=== PATIENT | female | born 1955 | race Caucasian/White ===

== ENCOUNTER 2020-10-31 09:13 | Outpatient (REF) | payer MEDICARE, SELFPAY ==
--- NOTE | 2020-10-31 09:17 | MM_ITS ---
EXAMINATION: MM SCREENING DIGITAL BREAST TOMOSYNTHESIS, BILATERAL CLINICAL INFORMATION: Screening. Asymptomatic. The lifetime risk of breast cancer based on the Tyrer-Cuzick Model is 9%. COMPARISON: Mammography: 08/06/2019, 07/30/2018 TECHNIQUE: Digital breast tomosynthesis is performed in both the craniocaudal and mediolateral oblique views along with computer-aided detection (CAD). Synthesized 2D images are generated from the tomosynthesis. FINDINGS: There are scattered areas of fibroglandular density (ACR BI-RADS breast composition Category b). There are no significant masses, abnormal calcifications, or other abnormalities. The axilla and skin contours are unremarkable. No significant changes from prior exams. MM/MM tomosynthesis screening BI IMPRESSION: No mammographic evidence of malignancy. ASSESSMENT: BI-RADS 1: Negative RECOMMENDATION: Routine annual mammography screening. This patient's information was entered into a reminder system with a target due date for their next mammogram.
== END 2020-10-31 09:14 | disposition home or self-care (01) ==
LOC: HO.MAMMO 09:13
PROVIDERS: PCP Internal Medicine; Visit Provider Internal Medicine
DX: Z12.31 Encounter for screening mammogram for malignant neoplasm of breast (principal)
CPT/HCPCS: 77063; 77067

== ENCOUNTER 2020-11-15 07:50 | Outpatient (REF) | payer MEDICARE, SELFPAY ==
[2020-11-15 11:16] LABS: Alanine Aminotransferase 15 U/L (0-31); Albumin Level 4.5 g/dL (3.5-5.0); Alkaline Phosphatase 68 U/L (39-117); Anion Gap 12 (12-20); Aspartate Amino Transferase 17 U/L (5-31); Bilirubin Total 0.8 mg/dL (0.0-1.0); Blood Urea Nitrogen 15 mg/dL (9-16); Calcium 8.9 mg/dL (8.4-10.2); Carbon Dioxide 27 mmol/L (22-29); Chloride 107 mmol/L (96-108); Cholesterol 230 mg/dL; Estimated Glomerular Filt Rate > 60; Glucose Fasting 97 mg/dL (60-99); HDL Cholesterol 56 mg/dL; LDL Cholesterol Calculated 131 mg/dl; Potassium 4.4 mmol/l (3.3-5.1); Sodium 142 mmol/L (135-145); Total Protein 6.6 g/dL (6.5-8.0); Triglycerides 216 mg/dL
== END 2020-11-15 07:51 | disposition home or self-care (01) ==
LOC: HO.WFDLDS 07:50
PROVIDERS: Visit Provider Internal Medicine
DX: I10 Essential (primary) hypertension (principal); E78.2 Mixed hyperlipidemia
CPT/HCPCS: 36415; 80053; 80061

== ENCOUNTER 2021-03-02 09:02 | Outpatient (REF) | payer MEDICARE, SELFPAY ==
[2021-03-02 11:17] LABS: Alanine Aminotransferase 14 U/L (0-31); Albumin Level 4.6 g/dL (3.5-5.0); Alkaline Phosphatase 71 U/L (39-117); Anion Gap 11 (12-20); Aspartate Amino Transferase 20 U/L (5-31); Bilirubin Total 1.1 mg/dL (0.0-1.0); Blood Urea Nitrogen 12 mg/dL (9-16); Calcium 9.6 mg/dL (8.4-10.2); Carbon Dioxide 28 mmol/L (22-29); Chloride 108 mmol/L (96-108); Cholesterol 206 mg/dL; Estimated Glomerular Filt Rate > 60; Glucose Fasting 95 mg/dL (60-99); HDL Cholesterol 55 mg/dL; LDL Cholesterol Calculated 123 mg/dl; Potassium 4.9 mmol/L (3.3-5.1); Sodium 142 mmol/L (135-145); Total Protein 6.7 g/dL (6.5-8.0); Triglycerides 142 mg/dL
[2021-03-02 11:27] LABS: Vitamin D 25-OH Total 91.8 ng/mL (>30)
== END 2021-03-02 09:03 | disposition home or self-care (01) ==
LOC: HO.WFDLDS 09:02
PROVIDERS: Visit Provider Internal Medicine
DX: E78.5 Hyperlipidemia, unspecified (principal); I10 Essential (primary) hypertension
CPT/HCPCS: 36415; 80053; 80061; 82306

== ENCOUNTER → 2021-04-21 09:59 | Outpatient (BNVA) | payer MEDICARE, SELFPAY | PROVIDERS: PCP Internal Medicine; Visit Provider Nurse Practitioner Family | DX: Z12.11 Encounter for screening for malignant neoplasm of colon (principal); K30 Functional dyspepsia | CPT/HCPCS: 99202 ==

== ENCOUNTER 2021-07-07 08:05 | Outpatient (REF) | payer MEDICARE, SELFPAY ==
[2021-07-07 11:53] LABS: Mean Corpuscular HGB Conc 34.2 g/dl (31.0-35.0); PLT CLUMP 1; Red Cell Distribution Width 12.8 % (11.0-16.0)
[2021-07-07 11:55] LABS: Hematocrit 40.7 % (37-47); Hemoglobin 13.9 g/dl (12.0-16.0); Mean Corpuscular Hemoglobin 31.3 pg (27.0-33.0); Mean Corpuscular Volume 91.7 fL (80-98); Mean Platelet Volume 10.6 fL (9.4-12.3); Platelet Count 138 X10*3/uL (160-400); Red Blood Count 4.44 X10*6/uL (4.20-5.50); White Blood Count 4.4 X10*3/uL (4.8-10.8)
[2021-07-07 12:14] LABS: Cholesterol 245 mg/dL; HDL Cholesterol 58 mg/dL; LDL Cholesterol Calculated 168 mg/dl; Triglycerides 97 mg/dL
== END 2021-07-07 08:06 | disposition home or self-care (01) ==
LOC: HO.WFDLDS 08:05
PROVIDERS: Absent Provider Nurse Practitioner Family; Visit Provider Internal Medicine
DX: Z12.11 Encounter for screening for malignant neoplasm of colon (principal); E78.5 Hyperlipidemia, unspecified
CPT/HCPCS: 36415; 80061; 82306; 85027

== ENCOUNTER → 2021-07-31 10:55 | Outpatient (BNVA) | payer MEDICARE, SELFPAY | PROVIDERS: PCP Internal Medicine; Referring Provider Internal Medicine; Visit Provider Internal Medicine Cardiovascular Disease | DX: Z01.810 Encounter for preprocedural cardiovascular examination (principal); I10 Essential (primary) hypertension | CPT/HCPCS: 93005; 99212 ==

== ENCOUNTER 2021-08-08 06:23 | Day surgery (SDC) | payer MEDICARE, SELFPAY ==
[2021-08-02 15:18] VITALS: BMI 26.6
--- NOTE | 2021-08-07 10:07 | P.CONAN_ITS ---
Documented by User: Sujey Schulz NP 08/07/21 10:09 HPI - Anesthesia Eval Consult details Narrative: 66yo F for Upper Endoscopy and Colonoscopy Cardiac cleared at low to intermed [employer] with DDAVP preop [facility] Active Problems Active Problems: All Active Problems (Updated 08/02/21 @ 15:34 by Sana Alvarez, RN) Preop cardiovascular exam (Acute) Acquired thrombocytopenia (Acute) Annual physical exam (Acute) Pain of left calf (Acute) Family history of breast cancer (Acute) Mammogram normal (Acute) Hyperlipidemia (Acute) Normal Pap smear (Acute) Normal colonoscopy (Acute) Vertigo (Acute) Anxiety and depression (Acute) Lyme disease, unspecified (Acute) HTN (hypertension) (Acute) Past Medical History Medical History Acquired thrombocytopenia Afib Annual physical exam Anxiety and depression Family history of breast cancer HTN (hypertension) Hyperlipidemia Lyme disease, unspecified Mammogram normal Normal colonoscopy Normal Pap smear Pain of left calf Post-operative nausea and vomiting Vertigo Von Willebrand disease Family History Family History Father HTN (hypertension) Hx of CABG Diabetes mellitus Mother Colon cancer Myocardial infarction Maternal Aunt Breast cancer Sister Colon polyp Surgical History Surgical History H/O cardiac radiofrequency ablation Hx of colonoscopy Hx of tonsillectomy Social History Social History Housing: House Alcohol intake: current Alcohol intake frequency: holidays/special occasions only Patient Tobacco Use Status: Never used Tobacco e-Cigarette/Vaping Use: Never Used Are you DNR?: No Advance Directives: No Advance Directives Information Provided: No Advance Directives on File: No Current occupational status: retired Meds Allergies Allergy/AdvReac Type Severity Reaction Status Date / Time Latex Gloves Allergy Severe Rash Verified 08/02/21 15:21 metoclopramide [Reglan] Allergy Severe Anxiety Verified 08/02/21 15:21 morphine Allergy Severe Nausea and Verified 08/02/21 15:21 Vomiting niacin Allergy Severe Swelling Verified 08/02/21 15:21 [Niaspan Extended-Release] Pyipebi-Kkh-Yia Reductase Allergy Severe Muscle Verified 08/02/21 15:21 Inhibitor cramps Active Medications: Current Medications Desmopressin Acetate 20 mcg/ (Sodium Chloride) 55 mls @ 100 mls/hr IV ONCE ONE Stop: 08/08/21 07:32 Home Medications Medication Instructions Recorded Confirmed Last Taken Type Saccharomyces boulardii [Daily PO 09/05/20 07/31/21 Unknown History Probiotic (S. boulardii)] aspirin 81 mg tablet,delayed 81 mg PO DAILY 09/05/20 08/08/21 08/01/21 History release coenzyme Q10 [CoQ-10] PO 09/05/20 07/31/21 Unknown History azelaic acid 15 % topical gel TOPICAL 03/27/21 07/31/21 Unknown History ascorbic acid (vitamin C) 1,000 mg 1 g PO DAILY 04/21/21 08/02/21 Unknown History tablet oregano oil 1,500 mg capsule 1,500 mg PO DAILY 04/21/21 08/02/21 Unknown History algae omega PO 07/10/21 07/31/21 Unknown History calcium with magnesium PO 07/10/21 07/31/21 Unknown History citrus bergamot PO 07/10/21 07/31/21 Unknown History vitamin B complex 1 cap PO DAILY 07/10/21 08/02/21 Unknown History cholecalciferol (vitamin D3) 25 25 mcg PO DAILY 08/02/21 08/02/21 Unknown History mcg (1,000 unit) capsule (Vitamin D3) garlic 08/02/21 08/02/21 Unknown History loratadine 10 mg tablet (Claritin) 10 mg PO DAILY 08/02/21 08/02/21 Unknown History metoprolol succinate 25 mg 25 mg PO BEDTIME 08/02/21 08/02/21 Unknown History tablet,extended release 24 hr (Toprol XL) Exam Exam Date and Time: August 07, 2021 1008 Height,Weight and Vital Signs: Height 5 ft 4 in Weight 70.307 kg Pertinent Lab Results Pertinent Lab Results: Laboratory Tests 03/02/21 07/07/21 09:10 08:10 WBC 4.4 L Hgb 13.9 Hct 40.7 Plt Count 138 L Sodium 142 Potassium 4.9 Chloride 108 Carbon Dioxide 28 BUN 12 Creatinine 0.82 Narrative Narrative: EKG 07/2021 Normal sinus rhythm 70 beats per minute EKG, QTC 390 milliseconds. Documented by User: Ester Gabriel MD 08/08/21 07:57 PMFSH Past Medical History Medical History Acquired thrombocytopenia Afib Annual physical exam Anxiety and depression Family history of breast cancer HTN (hypertension) Hyperlipidemia Lyme disease, unspecified Mammogram normal Normal colonoscopy Normal Pap smear Pain of left calf Post-operative nausea and vomiting Vertigo Von Willebrand disease Family History Family History Father HTN (hypertension) Hx of CABG Diabetes mellitus Mother Colon cancer Myocardial infarction Maternal Aunt Breast cancer Sister Colon polyp Surgical History Surgical History H/O cardiac radiofrequency ablation Hx of colonoscopy Hx of tonsillectomy History of Problems with Anesthesia: No Social History Social History Housing: House Alcohol intake: current Alcohol intake frequency: holidays/special occasions only Patient Tobacco Use Status: Never used Tobacco e-Cigarette/Vaping Use: Never Used Are you DNR?: No Advance Directives: No Advance Directives Information Provided: No Advance Directives on File: No Current occupational status: retired Meds Allergies Allergy/AdvReac Type Severity Reaction Status Date / Time Latex Gloves Allergy Severe Rash Verified 08/02/21 15:21 metoclopramide [Reglan] Allergy Severe Anxiety Verified 08/02/21 15:21 morphine Allergy Severe Nausea and Verified 08/02/21 15:21 Vomiting niacin Allergy Severe Swelling Verified 08/02/21 15:21 [Niaspan Extended-Release] Sbcnyli-Okh-Cdp Reductase Allergy Severe Muscle Verified 08/02/21 15:21 Inhibitor cramps Home Medications Medication Instructions Recorded Confirmed Last Taken Type Saccharomyces boulardii [Daily PO 09/05/20 07/31/21 Unknown History Probiotic (S. boulardii)] aspirin 81 mg tablet,delayed 81 mg PO DAILY 09/05/20 08/08/21 08/01/21 History release coenzyme Q10 [CoQ-10] PO 09/05/20 07/31/21 Unknown History azelaic acid 15 % topical gel TOPICAL 03/27/21 07/31/21 Unknown History ascorbic acid (vitamin C) 1,000 mg 1 g PO DAILY 04/21/21 08/02/21 Unknown History tablet oregano oil 1,500 mg capsule 1,500 mg PO DAILY 04/21/21 08/02/21 Unknown History algae omega PO 07/10/21 07/31/21 Unknown History calcium with magnesium PO 07/10/21 07/31/21 Unknown History citrus bergamot PO 07/10/21 07/31/21 Unknown History vitamin B complex 1 cap PO DAILY 07/10/21 08/02/21 Unknown History cholecalciferol (vitamin D3) 25 25 mcg PO DAILY 08/02/21 08/02/21 Unknown History mcg (1,000 unit) capsule (Vitamin D3) garlic 08/02/21 08/02/21 Unknown History loratadine 10 mg tablet (Claritin) 10 mg PO DAILY 08/02/21 08/02/21 Unknown History metoprolol succinate 25 mg 25 mg PO BEDTIME 08/02/21 08/02/21 Unknown History tablet,extended release 24 hr (Toprol XL) Exam Airway Mallampati Class: III TM Dist: >3cm Neck ROM: Full Loose/Missing/Broken Teeth: No Heart: RRR Lungs: CTA Assessment and Plan Assessment Anesthesia Assessment: Anesthesia Plan Discussed and Chart Reviewed Final Anesthetic Review History of Problems with Anesthesia: No NPO: Yes ASA Class: II Final Preanesthetic Review: Meds/Allgs Chart Reviewed, Consent Obtained/Reviewed and Anes Risks/Benef Reviewed Patient Risk: Low Procedure Risk: Intermediate Anesthetic Plan Anesthetic Plan: MAC: Disposition: Standard PACU
[2021-08-08 06:47] VITALS: BP 143/73; PULSE 76; RESP 16; TEMP 36.6; O2SAT 100
[2021-08-08] MEDS: Lactated Ringers 1,000 ML 100 ML IVCONT (06:54)
[2021-08-08] MEDS: Desmopressin Acetate 20 MCG in 0.9 % Sodium Chloride 50 ML 100 MCG IV (07:06)
--- NOTE | 2021-08-08 07:09 | P.HPSUR_ITS ---
Pre-Procedural Eval Section A Date of Service: 08/08/21 The patient is an INPATIENT: No The History & Physical has been completed within 30 days and I have reviewed it.: No Section B Chief Complaint: Colon cancer screening, hx of gastric polyps Details of Present Illness: Colon cancer screening, family history of colon cancer, history of gastric polyps Relevant Family History (Specify if Yes): Yes Relevant Social History: None Present Medications: see Short Stay Collaborative assessment Medical History: Significant History (Afib Annual physical exam Anxiety and depression Family history of breast cancer HTN (hypertension) Hyperlipidemia Lyme disease, unspecified Mammogram normal Normal colonoscopy Normal Pap smear Pain of left calf Vertigo) History of Previous Operations: Relevant previous surgery/procedure and date(s) (Status post tonsillectomy, status post colonoscopy, history of cardiac ablati on) Allergies: Allergies Allergy/AdvReac Type Severity Reaction Status Date / Time Latex Gloves Allergy Severe Rash Verified 08/02/21 15:21 metoclopramide [Reglan] Allergy Severe Anxiety Verified 08/02/21 15:21 morphine Allergy Severe Nausea and Verified 08/02/21 15:21 Vomiting niacin Allergy Severe Swelling Verified 08/02/21 15:21 [Niaspan Extended-Release] Ptkezeh-Ugk-Fvt Reductase Allergy Severe Muscle Verified 08/02/21 15:21 Inhibitor cramps Review of Systems Sugical H&P ROS: Negative: Constitution, Cardiovascular, Respiratory and Gastrointestinal Exam Surgical H&P Exam: Normal: Heart, Normal: Lungs and Normal: Abdomen Plan Diagnosis/Plan: Unchanged I have reviewed the history and physical and performed a pertinent physical examination on my patient. No changes have occurred unless specified.
--- NOTE | 2021-08-08 07:10 | PM.OP ---
Brief Operative Note Date of Service: 08/08/21 Pre-op diagnosis: Colon cancer screening, GERD Post-op diagnosis: other (GERD, hiatal hernia, gastritis, gastric polyps) Procedure: FLEXIBLE TRANSORAL UPPER GASTROINTESTINAL ENDOSCOPY WITH BIOPSIES AND COLONOSCOPY PROCEDURE NOTE UPPER ENDOSCOPY Consent: Indications for the procedure and potential complications of bleeding, perforation, reaction to medications and missed diagnosis were discussed with the patient and informed consent was obtained. Instrument: Olympus GIF H 190 mid size upper endoscope Monitoring: Vital signs and clinical assessment, continuous EKG monitoring, Pulse oximetry, Carbon Dioxide monitoring and blood pressure monitoring were done throughout the procedure. Procedure: The patient was placed in the left lateral decubitis position and pre-procedure medications were administered and a bite block was placed. The endoscope was inserted into the mouth and advanced under direct vision to the third part of duodenum. A careful inspection was made as the upper endoscope was withdrawn including a retroflexed examination of the proximal stomach; Findings and interventions are described below. Findings: Larynx: Normal Esophagus: GE junction at 35 cms, Hiatal hernia 35 to 38 cms. Irregular Z-line - biopsied to check for Billingsley's Stomach: 3-5 mm benign appearing polyps in the body and fundus - one removed by cold bx. Mild gastric erythema with a few superficial antral erosions - biopsied. Grade 2 flap valve on retroflexed examination of the cardia. Duodenum: Normal bulb and descending duodenum Intervention: Biopsies as noted above COLONOSCOPY PROCEDURE NOTE Consent: Indications for the procedure and potential complications of bleeding, perforation, reaction to medications and missed diagnosis were discussed with the patient and informed consent was obtained. Instrument: Olympus PCF H 190 L variable stiffness pediatric colonoscope Monitoring: Vital signs and clinical assessment, intermittent blood pressure monitoring, continuous EKG monitoring, Pulse oximetry and Carbon Dioxide monitoring were done throughout the procedure. Colon withdrawl time was 15 minutes. Procedure: The patient was placed in the left lateral decubitis position and pre-procedure medications were administered. After a digital rectal examination of the ano-rectum, the video colonoscope was inserted into the rectum and advanced through the colon to the cecum. The colonoscope was slowly withdrawn in a retrograde panoramic fashion and the colon mucosa was carefully examined including a retroflexed view of the rectum. Findings and interventions are described below. Procedure Difficulty: : Without difficulty Findings: Terminal Ileum: Not evaluated Cecum: Normal Ascending Colon: A 5-6 mm sessile polyp in the distal ascending colon - removed with a cold bx. A 2nd 8-10 mm sessile polyp removed with a cold snare and polyp was not retrieved. Transverse Colon: Normal Descending Colon: Normal Sigmoid Colon: Moderate diverticulosis Rectum: Normal Ano-rectum: Moderate internal hemorrhoids and perianal skin tags Colon preparation: [Excellent] [Good] [Fair] [poor] Impression and Post Procedure Diagnosis: Endoscopy Findings: ESOPHAGUS: Hiatal hernia 35 to 38 cms. Irregular Z-line - biopsied to check for Billingsley's STOMACH: 3-5 mm benign appearing polyps in the body and fundus - one removed by cold bx. Mild gastric erythema with a few superficial antral erosions - biopsied. Colonoscopy Findings: Two small to medium sized polyps removed - 1 polyp was not retrieved. Moderate diverticulosis seen in the sigmoid colon Moderate hemorrhoids on retroflexed exam. Plan: Await pathology results Patient has an appointment on 08/22/21 in the GI Clinic with Scarlett Quarles FNP-BC . Repeat Colonoscopy interval based on path results - in 3 years if polyps are adenomatous and since a medium sized polyp was not retrieved. Above findings were reviewed with the patient and Hiatal hernia, gastric polyps, colon polyps and diverticulosis handouts were given in the discharge area Surgeon: Tho Roland MD Was an High School Tutor used for this Procedure?: No Estimated blood loss (mL): 0 Pathology: other (A. gastric antrum, R/O H. pylori B. gastric polyp C. G-E junction, R/O Billingsley's D. ascending colon polyp) Condition: stable Disposition: PACU
--- NOTE | 2021-08-08 07:12 | W.PM.OPN ---
Operative Note Operative Note Date of Service: 08/08/21 Narrative: Pre-op diagnosis:?Colon cancer screening, GERD Post-op diagnosis:?other (GERD, hiatal hernia, gastritis, gastric polyps) Procedure:? FLEXIBLE TRANSORAL UPPER GASTROINTESTINAL ENDOSCOPY WITH BIOPSIES AND COLONOSCOPY TILL CECUM AND SNARE POLYPECTOMY UPPER ENDOSCOPY Consent:?Indications for the procedure and potential complications of bleeding, perforation, reaction to medications and missed diagnosis were discussed with the patient and informed consent was obtained. Instrument:?Olympus GIF H 190 mid size upper endoscope Monitoring: Vital signs and clinical assessment, continuous EKG monitoring, Pulse oximetry, Carbon Dioxide monitoring and blood pressure monitoring were done throughout the procedure. Procedure:?The patient was placed in the left lateral decubitis position and pre-procedure medications were administered and a bite block was placed. The endoscope was inserted into the mouth and advanced under direct vision to the third part of duodenum. A careful inspection was made as the upper endoscope was withdrawn including a retroflexed examination of the proximal stomach; Findings and interventions are described below. Findings: Larynx:? Normal Esophagus:?GE junction at 35 cms,?Hiatal hernia 35 to 38 cms. Irregular Z-line - biopsied to check for Billingsley's Stomach:? 3-5 mm benign appearing polyps in the body and fundus - one removed by cold bx. Mild gastric erythema with a few superficial antral erosions - biopsied.? Grade 2 flap valve on retroflexed examination of the cardia. Duodenum:?Normal bulb and descending duodenum Intervention:?Biopsies as noted above COLONOSCOPY PROCEDURE NOTE Consent:?Indications for the procedure and potential complications of bleeding, perforation, reaction to medications and missed diagnosis were discussed with the patient and informed consent was obtained. Instrument:?Olympus PCF H 190 L variable stiffness pediatric colonoscope Monitoring:?Vital signs and clinical assessment, intermittent blood pressure monitoring, continuous EKG monitoring, Pulse oximetry and Carbon Dioxide monitoring were done throughout the procedure. Colon withdrawl time was 15 minutes. Procedure:?The patient was placed in the left lateral decubitis position and pre-procedure medications were administered. After a digital rectal examination of the ano-rectum, the video colonoscope was inserted into the rectum and advanced through the colon to the cecum. The colonoscope was slowly withdrawn in a retrograde panoramic fashion and the colon mucosa was carefully examined including a retroflexed view of the rectum. Findings and interventions are described below. Procedure Difficulty:?: Without difficulty Findings: Terminal Ileum: Not evaluated Cecum:? Normal Ascending Colon:??A 5-6 mm sessile polyp in the distal ascending colon -? removed with a cold bx.? A 2nd 8-10 mm sessile polyp removed with a cold snare and polyp was not retrieved. Transverse Colon:??Normal Descending Colon:? Normal Sigmoid Colon:??Moderate diverticulosis Rectum:??Normal Ano-rectum:??Moderate internal hemorrhoids and perianal skin tags Colon preparation: [Excellent] [Good] [Fair] [poor] Impression and Post Procedure Diagnosis: Endoscopy Findings: ESOPHAGUS:?Hiatal hernia 35 to 38 cms. Irregular Z-line - biopsied to check for Billingsley's STOMACH: 3-5 mm benign appearing polyps in the body and fundus - one removed by cold bx. Mild gastric erythema with a few superficial antral erosions - biopsied.? Colonoscopy Findings: Two small to medium sized polyps removed - 1 polyp was not retrieved. Moderate diverticulosis seen in the sigmoid colon Moderate hemorrhoids on retroflexed exam. Plan: Await pathology results Patient has an appointment on 08/22/21 in the GI Clinic with ? Scarlett Quarles FNP-[facility] . Repeat Colonoscopy interval based on path results - in 3 years if polyps are adenomatous and since a medium sized polyp was not retrieved. Above findings were reviewed with the patient and Hiatal hernia, gastric polyps, colon polyps and diverticulosis handouts were given in the discharge area Surgeon:?Tho Roland MD Was an Church Business Administrator used for this Procedure?:?No Pathology:?other (A. gastric antrum, R/O H. pylori? B. gastric polyp? C. G-E junction, R/O Billingsley's? D. ascending colon polyp) Condition:?stable Disposition:?PACU
--- NOTE | 2021-08-08 07:34 | MHC.SHP ---
Pre-Procedural Eval Section A Date of Service: 08/08/21 The patient is an INPATIENT: No The History & Physical has been completed within 30 days and I have reviewed it.: No Section B Chief Complaint: Colon cancer screening, hx of gastric polyps Details of Present Illness: Colon cancer screening, history of gastric polyps Relevant Family History (Specify if Yes): Yes Relevant Social History: None Present Medications: see Short Stay Collaborative assessment Allergies: Allergies Allergy/AdvReac Type Severity Reaction Status Date / Time Latex Gloves Allergy Severe Rash Verified 08/02/21 15:21 metoclopramide [Reglan] Allergy Severe Anxiety Verified 08/02/21 15:21 morphine Allergy Severe Nausea and Verified 08/02/21 15:21 Vomiting niacin Allergy Severe Swelling Verified 08/02/21 15:21 [Niaspan Extended-Release] Wvzfrhc-Nmz-Ehq Reductase Allergy Severe Muscle Verified 08/02/21 15:21 Inhibitor cramps Review of Systems Sugical H&P ROS: Negative: Constitution, Cardiovascular, Respiratory and Gastrointestinal Exam Surgical H&P Exam: Normal: Heart, Normal: Lungs and Normal: Abdomen Plan Diagnosis/Plan: Unchanged I have reviewed the history and physical and performed a pertinent physical examination on my patient. No changes have occurred unless specified.
[2021-08-08 08:17] VITALS: BP 99/54; PULSE 68; RESP 16; TEMP 36.1; O2SAT 100
[2021-08-08 08:32] VITALS: BP 99/54; PULSE 61; RESP 16; TEMP 36.1; O2SAT 100
== END 2021-08-08 09:04 ==
PROVIDERS: PCP Internal Medicine; Visit Provider Internal Medicine Gastroenterology
PROC: (CPT 45385; principal; 2021-08-08 07:30)
DX: Z12.11 Encounter for screening for malignant neoplasm of colon (principal); D12.2 Benign neoplasm of ascending colon; K57.30 Diverticulosis of large intestine without perforation or abscess without bleeding; K64.8 Other hemorrhoids; K64.4 Residual hemorrhoidal skin tags; Z80.0 Family history of malignant neoplasm of digestive organs; K30 Functional dyspepsia; K29.70 Gastritis, unspecified, without bleeding; K31.7 Polyp of stomach and duodenum; K21.9 Gastro-esophageal reflux disease without esophagitis; K44.9 Diaphragmatic hernia without obstruction or gangrene; Z87.19 Personal history of other diseases of the digestive system; I10 Essential (primary) hypertension; I48.91 Unspecified atrial fibrillation; Z79.82 Long term (current) use of aspirin; Z79.899 Other long term (current) drug therapy
CPT/HCPCS: 45385; 45380; 43239; 88305; 88342

== ENCOUNTER → 2021-08-22 10:13 | Outpatient (BNVA) | payer MEDICARE, SELFPAY | PROVIDERS: PCP Internal Medicine; Visit Provider Nurse Practitioner Family | DX: Z13.89 Encounter for screening for other disorder (principal) | CPT/HCPCS: Q3014 ==

== ENCOUNTER → 2021-10-23 09:58 | Outpatient (BNVA) | payer MEDICARE, SELFPAY | PROVIDERS: PCP Internal Medicine; Referring Provider Internal Medicine; Visit Provider Internal Medicine Cardiovascular Disease | DX: K21.9 Gastro-esophageal reflux disease without esophagitis (principal); K57.90 Diverticulosis of intestine, part unspecified, without perforation or abscess without bleeding; I48.91 Unspecified atrial fibrillation; I10 Essential (primary) hypertension | CPT/HCPCS: 99212 ==

== ENCOUNTER 2022-01-02 08:26 | Outpatient (REF) | payer MEDICARE, SELFPAY ==
[2022-01-02 11:45] LABS: Hematocrit 42.4 % (37.0-47.0); Hemoglobin 14.3 g/dl (12.0-16.0); Mean Corpuscular HGB Conc 33.7 g/dl (31.0-35.0); Mean Corpuscular Hemoglobin 31.1 pg (27.0-33.0); Mean Corpuscular Volume 92.2 fL (80.0-98.0); Mean Platelet Volume 10.6 fL (9.4-12.3); Platelet Count 145 X10*3/uL (160-400); Red Cell Distribution Width 12.9 % (11.0-16.0); White Blood Count 4.4 X10*3/uL (4.8-10.8)
[2022-01-02 12:05] LABS: Alanine Aminotransferase 13 U/L (0-31); Albumin Level 4.3 g/dL (3.5-5.0); Alkaline Phosphatase 69 U/L (39-117); Anion Gap 16 (12-20); Aspartate Amino Transferase 18 U/L (5-31); Bilirubin Total 0.8 mg/dL (0.0-1.0); Blood Urea Nitrogen 17 mg/dL (9-16); Calcium 9.2 mg/dL (8.4-10.2); Carbon Dioxide 24 mmol/L (22-29); Chloride 107 mmol/L (96-108); Cholesterol 230 mg/dL; Estimated Glomerular Filt Rate > 60; Glucose Fasting 89 mg/dL (60-99); HDL Cholesterol 60 mg/dL; LDL Cholesterol Calculated 153 mg/dl; Potassium 4.5 mmol/L (3.3-5.1); Sodium 142 mmol/L (135-145); Total Protein 6.5 g/dL (6.5-8.0); Triglycerides 85 mg/dL
[2022-01-02 12:24] LABS: Folate 17.2 ng/mL (> or = 4.0); Vitamin B12 1019 pg/mL (200-900)
== END 2022-01-02 08:27 | disposition home or self-care (01) ==
LOC: HO.WFDLDS 08:26
PROVIDERS: Visit Provider Internal Medicine
DX: I10 Essential (primary) hypertension (principal)
CPT/HCPCS: 36415; 80053; 80061; 82607; 82746; 85027

== ENCOUNTER → 2022-03-21 14:09 | Outpatient (BNVA) | payer MEDICARE, SELFPAY | PROVIDERS: PCP Internal Medicine; Referring Provider Internal Medicine; Visit Provider Internal Medicine Cardiovascular Disease | DX: I10 Essential (primary) hypertension (principal); R42 Dizziness and giddiness | CPT/HCPCS: 93005; 99212 ==

== ENCOUNTER 2022-03-26 08:30 | Outpatient (REF) | payer MEDICARE, SELFPAY ==
[2022-03-26 12:08] LABS: Cholesterol 227 mg/dL; HDL Cholesterol 57 mg/dL; LDL Cholesterol Calculated 157 mg/dl; Triglycerides 67 mg/dL
== END 2022-03-26 08:31 | disposition home or self-care (01) ==
LOC: HO.WFDLDS 08:30
PROVIDERS: Visit Provider Internal Medicine
DX: E78.5 Hyperlipidemia, unspecified (principal); R20.2 Paresthesia of skin; I10 Essential (primary) hypertension; E53.8 Deficiency of other specified B group vitamins
CPT/HCPCS: 36415; 80061

== ENCOUNTER 2022-04-17 09:04 | Outpatient (REF) | payer MEDICARE, SELFPAY ==
--- NOTE | ~2022-04-17 | MM_ITS ---
EXAMINATION: BONE DENSITOMETRY CLINICAL INDICATION: Other specified disorders of bone density and structure. COMPARISON: Baseline BD dated 08/06/2019. TECHNIQUE: Using a [employer] DXA System (software version: 13.1) manufactured by [employer], dual-energy x-ray absorptiometry was performed of the lumbar spine and left hip. The images are of good technical quality. Summary results are attached. FINDINGS: AP SPINE L1-L3 (excluding L4): The data of L1-L4 has been changed to exclude the L4 vertebral body, because degenerative sclerosis at this level may cause overestimation of lumbar spine density. Current: BMD 1.228 g/cm2, Z-score 1.9, T-score 0.5, normal, 1.5% decrease from baseline (<5% change is not significant). Baseline: BMD 1.247 g/cm2. LEFT FEMUR, NECK: Current: BMD 0.891 g/cm2, Z-score 0.4, T-score -1.1, osteopenia. Baseline: BMD 0.834 g/cm2. LEFT FEMUR, TOTAL: Current: BMD 0.968 g/cm2, Z-score 0.9, T-score -0.3, normal, 1.0% decrease from baseline (<5% change is not significant). Baseline: BMD 0.978 g/cm2. IDENTIFIED RISK FACTORS: Menopause. HISTORY OF FRACTURE: None listed. MEDICATIONS: Calcium supplements or multivitamin, vitamin D. MM/XR DEXA axial skeleton IMPRESSION: 1. DIAGNOSIS: Osteopenia based on the lowest T-score value of -1.1 in the femoral neck applying World Health Organization criteria. 2. 10-YEAR FRACTURE RISK PREDICTION, FRAX: Major osteoporotic fracture (clinical spine, forearm, hip or shoulder) 8.8%. Hip fracture 0.9%. 3. Treatment Recommendations: NOF guidelines recommend consideration for treatment in postmenopausal women and men age 50 and older presenting with the following: -A hip or vertebral (clinical or morphometric) fracture. -T-score less than or equal to -2.5 at the femoral neck or spine after appropriate evaluation to exclude secondary causes. -Low bone mass at the hip or spine and a 10-year fracture probability by FRAX of greater than or equal to 3% for hip fracture or greater than or equal to 20% for major osteoporotic fracture based on the [place] adapted WHO algorithm. 4. Other Recommendations: All treatment decisions require clinical judgment and consideration of individual patient factors, including patient preferences, comorbidities, previous drug use, risk factors not captured in the FRAX model (e.g. frailty, falls, vitamin D deficiency, increased bone turnover, interval significant decline in bone density) and possible under or overestimation of fracture risk by FRAX. Additional medical evaluation for secondary cause of low bone mineral density may be appropriate. FUTURE SCAN RECOMMENDATION: People with diagnosed cases of osteoporosis or at high risk for fracture should have regular bone mineral density tests. For patients eligible for Medicare, routine testing is allowed once every 2 years. The testing frequency can be increased to one year for patients who have rapidly progressing disease, those who are receiving or discontinuing medical therapy to restore bone mass, or have additional risk factors.
--- NOTE | ~2022-04-17 | MM_ITS ---
EXAMINATION: MM SCREENING DIGITAL BREAST TOMOSYNTHESIS, BILATERAL CLINICAL INFORMATION: Screening. Asymptomatic. The lifetime risk of breast cancer based on the Tyrer-Cuzick Model is 7.7%. COMPARISON: Mammography: October 31, 2020 and studies dating back to July 30, 2018 TECHNIQUE: Digital breast tomosynthesis is performed in both the craniocaudal and mediolateral oblique views along with computer-aided detection (CAD). Synthesized 2D images are generated from the tomosynthesis. FINDINGS: The breasts are heterogeneously dense, which may obscure small masses (ACR BI-RADS breast composition Category c). There are no significant masses, abnormal calcifications, or other abnormalities. MM/MM tomosynthesis screening BI IMPRESSION: There are no significant changes from prior study. ASSESSMENT: BI-RADS 1: Negative RECOMMENDATION: Routine annual mammography screening. This patient's information was entered into a reminder system with a target due date for their next mammogram.
== END 2022-04-17 09:05 | disposition home or self-care (01) ==
LOC: HO.MAMMO 09:04
PROVIDERS: Visit Provider Internal Medicine
DX: Z12.31 Encounter for screening mammogram for malignant neoplasm of breast (principal); Z13.820 Encounter for screening for osteoporosis; M85.80 Other specified disorders of bone density and structure, unspecified site; Z78.0 Asymptomatic menopausal state
CPT/HCPCS: 77063; 77067; 77080

== ENCOUNTER → 2022-11-21 13:55 | Outpatient (BNVA) | payer MEDICARE, SELFPAY | PROVIDERS: PCP Internal Medicine; Visit Provider Internal Medicine Cardiovascular Disease | DX: I10 Essential (primary) hypertension (principal) | CPT/HCPCS: 99212 ==

== ENCOUNTER 2023-04-04 08:19 | Outpatient (REF) | payer MEDICARE, SELFPAY ==
[2023-04-04 11:15] LABS: MANUAL DIFF FLAG NO
[2023-04-04 11:37] LABS: Basophils Percent Auto 0.7 % (0-2); Eosinophils Absolute Auto 0.1 X10*3/uL (0.0-0.4); Eosinophils Percent Auto 1.8 % (0-4); Hematocrit 42.4 % (37.0-47.0); Hemoglobin 14.5 g/dl (12.0-16.0); Imm Gran Abs Auto 0.01 X10*3/uL (0.00-0.03); Imm Gran Pct Auto 0.2 % (0.0-0.4); Lymphocytes Absolute Auto 1.3 X10*3/uL (1.2-4.9); Lymphocytes Percent Auto 30.3 % (20-40); Mean Corpuscular HGB Conc 34.2 g/dl (31.0-35.0); Mean Corpuscular Hemoglobin 31.4 pg (27.0-33.0); Mean Corpuscular Volume 91.8 fL (80.0-98.0); Mean Platelet Volume 10.4 fL (9.4-12.3); Monocytes Absolute Auto 0.4 X10*3/uL (0.1-1.2); Monocytes Percent Auto 8.3 % (2-11); Neutrophils Absolute Auto 2.6 x10*3/uL (2.0-8.3); Neutrophils Percent Auto 58.7 % (45-73); Platelet Count 146 X10*3/uL (160-400); Red Blood Count 4.62 X10*6/uL (4.20-5.50); Red Cell Distribution Width 12.7 % (11.0-16.0); White Blood Count 4.4 X10*3/uL (4.8-10.8)
[2023-04-04 11:45] LABS: Alanine Aminotransferase 15 U/L (0-31); Albumin Level 4.4 g/dL (3.5-5.0); Alkaline Phosphatase 56 U/L (39-117); Anion Gap 11 (12-20); Aspartate Amino Transferase 17 U/L (5-31); Bilirubin Total 1.3 mg/dL (0.0-1.0); Blood Urea Nitrogen 17 mg/dL (9-16); Calcium 9.4 mg/dL (8.4-10.2); Carbon Dioxide 27 mmol/L (22-29); Chloride 109 mmol/L (96-108); Cholesterol 261 mg/dL; Estimated Glomerular Filt Rate > 60; Glucose Fasting 90 mg/dL (60-99); HDL Cholesterol 58 mg/dL; LDL Cholesterol Calculated 180 mg/dl; Potassium 4.1 mmol/L (3.3-5.1); Sodium 143 mmol/L (135-145); Total Protein 6.4 g/dL (6.5-8.0); Triglycerides 116 mg/dL
[2023-04-04 12:14] LABS: Folate 18.5 ng/mL (> or = 4.0); TSH reflex Free T4 1.56 uIU/mL (0.32-4.0); Vitamin B12 1054 pg/mL (200-900); Vitamin D 25-OH Total 79.5 ng/mL (>30)
== END 2023-04-04 08:20 | disposition home or self-care (01) ==
LOC: HO.WFDLDS 08:19
PROVIDERS: Visit Provider Internal Medicine
DX: Z00.00 Encounter for general adult medical examination without abnormal findings (principal); I48.91 Unspecified atrial fibrillation; I10 Essential (primary) hypertension; D69.6 Thrombocytopenia, unspecified; E78.5 Hyperlipidemia, unspecified
CPT/HCPCS: 36415; 80053; 80061; 82306; 82607; 82746; 84443; 85025

== ENCOUNTER 2023-04-19 09:59 | Outpatient (REF) | payer MEDICARE, SELFPAY ==
--- NOTE | ~2023-04-19 | MM_ITS ---
EXAMINATION: MM SCREENING DIGITAL BREAST TOMOSYNTHESIS, BILATERAL CLINICAL INFORMATION: Screening. Asymptomatic. The lifetime risk of breast cancer based on the Tyrer-Cuzick Model is 7%. COMPARISON: Mammography: 04/17/2022, 10/31/2020, 08/06/2019 TECHNIQUE: Digital breast tomosynthesis is performed in both the craniocaudal and mediolateral oblique views along with computer-aided detection (CAD). Synthesized 2D images are generated from the tomosynthesis. FINDINGS: There are scattered areas of fibroglandular density (ACR BI-RADS breast composition Category b). There are no significant masses, abnormal calcifications, or other abnormalities. Parenchymal pattern is similar to prior studies. There is no developing density or architectural abnormality. There are benign ductal secretory calcifications on the right anterior upper outer quadrant. The axilla and skin contours are unremarkable. No significant changes. MM/MM tomosynthesis screening BI IMPRESSION: No mammographic evidence of malignancy. ASSESSMENT: BI-RADS 2: Benign RECOMMENDATION: Routine annual mammography screening. This patient's information was entered into a reminder system with a target due date for their next mammogram.
== END 2023-04-19 10:00 | disposition home or self-care (01) ==
LOC: HO.MAMMO 09:59
PROVIDERS: PCP Internal Medicine; Visit Provider Internal Medicine
DX: Z12.31 Encounter for screening mammogram for malignant neoplasm of breast (principal)
CPT/HCPCS: 77063; 77067

== ENCOUNTER 2023-12-18 13:35 | Outpatient (AMB) | payer MEDICARE, SELFPAY ==
[2023-12-18 13:40] VITALS: BP 120/60; PULSE 68; BMI 27.6
--- NOTE | 2023-12-18 13:40 | MHC.OFFVIS ---
Intake Vital Signs 12/18/23 13:40 Height 5 ft 4 in Weight 160 lb 14.999 oz BMI 27.6 BP 120/60 Blood Pressure Location Lt brachial Position Sitting Pulse 68 Intake Visit Reasons: 1 year followup w/ekg dx: htn Intake Note: pt its here for her 1 year f/up w/ekg pt states that she its doing well and having no symptoms. 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 Accompanied by: Self / Same As Patient Allergies latex Allergy (Severe, Verified 04/03/23 13:05) Rash - latex gloves metoclopramide [From Reglan] Allergy (Severe, Verified 04/03/23 13:05) Anxiety morphine Allergy (Severe, Verified 04/03/23 13:05) Nausea and Vomiting niacin [Niaspan Extended-Release] Allergy (Severe, Verified 04/03/23 13:05) Swelling Sffkctf-HUX-XiA Reductase Inhibitor [Nmudkhp-Nbk-Bhu Reductase Inhibitor] Allergy (Severe, Verified 04/03/23 13:05) Muscle cramps Medication List - Last Reconciled 12/18/23 by Michael Lara MD [algae omega PO ONCE] ascorbic acid (vitamin C) 1 g PO DAILY aspirin 81 mg PO DAILY azelaic acid 15% topical [calcium with magnesium PO] cholecalciferol (vitamin D3) (Vitamin D3) 25 mcg PO DAILY [citrus bergamot PO] coenzyme Q10 (CoQ-10) PO [garlic ] metoprolol succinate ER 25 mg PO BID oregano oil 1,500 mg PO DAILY Saccharomyces boulardii (Daily Probiotic (S. boulardii)) PO vitamin B complex 1 cap PO DAILY HPI HPI Comments History of Present Illness Details 68-year-old female here for follow-up. She has background history of palpitations and atrial fibrillation. She underwent ablation in the past. She also has von willebrand disease and previous bleeding. Previously echocardiography showed normal left ventricular function. She also had cardiac event monitor which did not show any arrhythmia. We discussed about starting anticoagulation but given her history of von Willebrand's disease she decided not to take it and has been taking aspirin. She previously was complaining of dizziness and was advised to see ENT. She also had mildly elevated blood pressure and some palpitations. Her Toprol-XL was increased to 25 mg twice a day. She is saying since that increase her blood pressure is better and she has not been getting any palpitations. Denies chest pain or shortness of breath. Overall clinically stable. Some bruising but no gum/mucosal bleeds. 12/18/2023 she returns for follow-up. She has been doing well. No chest discomfort shortness of breath. No palpitations. Blood pressure is well controlled and she is taking metoprolol succinate 25 mg twice a day. She takes baby aspirin. She has von Willebrand disease as mentioned above but no recent bleeding episodes. [facility] Medical History (Updated 04/03/23 @ 13:57 by Brittany Dutton MD) Osteopenia Tingling of both feet Vitamin B 12 deficiency Tubular adenoma Von Willebrand disease Post-operative nausea and vomiting Acquired thrombocytopenia Annual physical exam Pain of left calf Family history of breast cancer Mammogram normal Hyperlipidemia Normal Pap smear Normal colonoscopy Afib Vertigo Anxiety and depression Lyme disease, unspecified HTN (hypertension) Surgical History H/O cardiac radiofrequency ablation Hx of tonsillectomy Hx of colonoscopy Family History Father HTN (hypertension) Hx of CABG Diabetes mellitus Mother Colon cancer Myocardial infarction Maternal Aunt Breast cancer Sister Colon polyp Social History Housing: House Alcohol intake: current Alcohol intake frequency: holidays/special occasions only Patient Tobacco Use Status: Never used Tobacco e-Cigarette/Vaping Use: Never Used Current occupational status: retired Cognitive needs: No Hearing needs: No Vision needs: Yes Review of Systems Const Denies chills, Denies fatigue, Denies fever(s), Denies frequent falls, Denies weakness, Denies weight gain and Denies weight loss ENT Denies dizziness Card Denies chest pain, Denies leg edema, Denies lightheadedness, Denies palpitations, Denies dyspnea and Denies dyspnea on exertion Resp Denies cough, Denies dyspnea and Denies dyspnea on exertion GI Denies hematochezia Musc Denies abnormal gait, Denies muscle weakness, Denies numbness, Denies radiating pain into limb and Denies tingling Neuro Denies abnormal gait, Denies dizziness, Denies frequent falls, Denies numbness, Denies tingling and Denies weakness Endo Denies fatigue and Denies palpitations Physical Exam Vital Signs: Last Vital Signs Pulse 68 12/18/23 13:40 BP 120/60 12/18/23 13:40 BMI result Body Mass Index 27.6 GENERAL APPEARANCE: in no acute distress, pleasant. NECK: no carotid bruit, no jugular venous distention. SKIN: no suspicious lesions, warm and dry. HEART: no murmurs, regular rate and rhythm. LUNGS: clear to auscultation bilaterally. ABDOMEN: soft, nontender. EXTREMITIES: no edema. PERIPHERAL PULSES: equal. NEUROLOGIC: No gross deficits, AAO X 3 Office Procedures EKG Details: Sinus rhythm 68 beats per minute, normal axis, normal ECG, QTC 391 milliseconds. [id number], Complete Assessment & Plan Assessment & Plan (1) HTN (hypertension): Code(s): I10 - Essential (primary) hypertension (2) Afib: Comment: s/p ablation 2009, f/u cardiology at [facility], on 81 mg of ASA Code(s): I48.91 - Unspecified atrial fibrillation Plan Pleasant 68-year-old female who is here for follow-up. She has background history of Von Willebrand disease and paroxysmal atrial fibrillation. She had AFib ablation performed the past. No documented episodes of atrial fibrillation since then. EKG in the office is showing sinus rhythm at this time. She is taking metoprolol succinate twice a day. We had discussion previously about starting anticoagulation but due to her history of von Willebrand disease and bleeding risk she was quite apprehensive. She continues to take baby aspirin at this point. She will see us once a year. Thank you for allowing me to participate in the care of your patient. Please feel free to contact me if you have any questions. Coding Level of Care Code Est Pt Level 4 (05121) Diagnoses HTN (hypertension) I10 Afib I48.91 CPT Codes EKG - CPT: 11782-Viwraxkzdeybwkmln, Complete ([id number])
== END 2023-12-18 14:03 | disposition home or self-care (01) ==
PROVIDERS: PCP Internal Medicine; Visit Provider Internal Medicine Cardiovascular Disease
DX: I10 Essential (primary) hypertension (principal); I48.91 Unspecified atrial fibrillation
CPT/HCPCS: 93010; 99214

== ENCOUNTER → 2023-12-18 13:35 | Outpatient (BNVA) | payer MEDICARE, SELFPAY | PROVIDERS: PCP Internal Medicine; Visit Provider Internal Medicine Cardiovascular Disease | DX: I10 Essential (primary) hypertension (principal); I48.91 Unspecified atrial fibrillation | CPT/HCPCS: 93005; 99212 ==

== ENCOUNTER 2023-12-20 11:31 | Outpatient (AMB) | payer MEDICARE, SELFPAY ==
--- NOTE | 2023-12-20 11:44 | MHC.PC.OV ---
Vital Signs 12/20/23 11:51 Height 5 ft 4 in Weight 160 lb BMI 27.5 BP 136/80 Blood Pressure Location Rt brachial Position Sitting Pulse 62 Pulse Source Pulse Oximeter Pulse Oximetry (%) 99 Oxygen Delivery Method Room Air Intake Visit Reasons: rash Intake Note: Pt is here today for a sick visit. Pt c/o rash under her L breast and L ear discomfort. Allergies latex Allergy (Severe, Verified 12/20/23 11:53) Rash - latex gloves metoclopramide [From Reglan] Allergy (Severe, Verified 12/20/23 11:53) Anxiety morphine Allergy (Severe, Verified 12/20/23 11:53) Nausea and Vomiting niacin [Niaspan Extended-Release] Allergy (Severe, Verified 12/20/23 11:53) Swelling Nazfbix-SXI-BdU Reductase Inhibitor [Bhrbxqy-Mfx-Pzy Reductase Inhibitor] Allergy (Severe, Verified 12/20/23 11:53) Muscle cramps Medication List - Last Reconciled 12/20/23 by Brittany Dutton MD [algae omega PO ONCE] ascorbic acid (vitamin C) 1 g PO DAILY aspirin 81 mg PO DAILY azelaic acid 15% topical [calcium with magnesium PO] cholecalciferol (vitamin D3) (Vitamin D3) 25 mcg PO DAILY [citrus bergamot PO] coenzyme Q10 (CoQ-10) PO [garlic ] ketoconazole 2% 1 appl topical DAILY metoprolol succinate ER 25 mg PO BID oregano oil 1,500 mg PO DAILY Saccharomyces boulardii (Daily Probiotic (S. boulardii)) PO vitamin B complex 1 cap PO DAILY Tobacco use date assessed: 12/20/23 Fall risk assessment: 1 Fall in past year Last assessed Fall Risk: 12/20/23 Dental Screening Dental Screen Date: 12/20/23 Did you have a dental visit in the last 12 months?: Yes Did you have a dental problem in the last 6 months where you did not have access to dental care?: No Was dental information given to patient?: Patient has dentist HPI rash HPI Details Patient presents complaining of the itchy rash under left breast for few days. She has been cleaning her cellar in a [place] environment. Patient complains of left ear cartilage feeling sensitive to touch for the last few days. She denies earache of trauma. Hypertension is controlled on metoprolol. [facility] Medical History (Updated 12/20/23 @ 12:12 by Brittany Dutton MD) Osteopenia Tingling of both feet Vitamin B 12 deficiency Tubular adenoma Von Willebrand disease Post-operative nausea and vomiting Acquired thrombocytopenia Annual physical exam Pain of left calf Family history of breast cancer Mammogram normal Hyperlipidemia Normal Pap smear Normal colonoscopy Afib Vertigo Anxiety and depression Lyme disease, unspecified HTN (hypertension) Surgical History H/O cardiac radiofrequency ablation Hx of tonsillectomy Hx of colonoscopy Family History Father HTN (hypertension) Hx of CABG Diabetes mellitus Mother Colon cancer Myocardial infarction Maternal Aunt Breast cancer Sister Colon polyp Social History Housing: House Alcohol intake: current Alcohol intake frequency: holidays/special occasions only Patient Tobacco Use Status: Never used Tobacco e-Cigarette/Vaping Use: Never Used Current occupational status: retired Cognitive needs: No Hearing needs: No Vision needs: Yes Questionnaire PHQ-9 Over the last 2 weeks, how often have you been bothered by any of the following problems? 1. Little interest or pleasure in doing things: not at all 2. Feeling down, depressed, or hopeless: several days 3. Trouble falling or staying asleep, or sleeping too much: several days 4. Feeling tired or having little energy: not at all 5. Poor appetite or overeating: not at all 6. Feeling bad about yourself - or that you are a failure or have let yourself or your family down: not at all 7. Trouble concentrating on things, such as reading the newspaper or watching television: not at all 8. Moving or speaking so slowly that other people could have noticed. Or the opposite - being so fidgety or restless that you have been moving around a lot more than usual: not at all 9. Thoughts that you would be better off or of hurting yourself in some way: not at all Total score: 2 Depression Screening Interpretation: Negative Depression Screening Done: Yes Source: Developed by Drs. Jerome Post, Meaghan Raines, Matthias Al and colleagues, with an educational nicole from [employer]. Thrive Questionnaire Date Thrive assessed: 12/20/23 I am a: Patient What is your living situation today?: I have a steady place to live Within the past 12 months, did the food you bought not last and you didn't have the money to get more?: Never true Within the past 12 months, did you worry whether your food would run out before you got money to buy more?: Never true Do you have trouble paying for medicines?: No Do you have trouble getting transportation to medical appointments?: No Do you have trouble paying your heating and electricity bill?: No Do you have trouble taking care of your child, family member or friend?: No Do you have trouble with day-to-day activities such as bathing, preparing meals, shopping, managing finances, etc.?: No Are you currently unemployed and looking for a job?: No Are you interested in more education?: No Please select the resources that you would like help with: None Currently or been in a relationship where the following occur: no concerns reported THRIVE Score: 0 ASHLEE-7 AMB Questionnaire ASHLEE-7 Date ASHLEE - 7 assessed: 12/20/23 Feeling nervous, anxious, or on edge: 0 = Not at all Not being able to stop or control worryin = Not at all Worrying too much about different things: 0 = Not at all Trouble relaxin = Not at all Being so restless that it is hard to sit still: 0 = Not at all Becoming easily annoyed or irritable: 0 = Not at all Feeling afraid as if something awful might happen: 0 = Not at all Total ASHLEE-7 score (0-4 normal; 5-9 mild; 10-14 moderate; 15-21 severe): 0 Source: Developed by Drs. Jerome Post, Meaghan Raines, Matthias Al and colleagues, with an educational nicole from [employer]. Review of Systems Const All systems reviewed & are unremarkable except as noted in HPI and below Reports no additional complaints Eyes Reports no additional complaints ENT Reports no additional complaints Card Reports no additional complaints Resp Reports no additional complaints GI Reports no additional complaints Reports no additional complaints Physical exam (Primary Care) Vital Signs: Last Vital Signs Pulse 62 12/20/23 11:51 BP 136/80 12/20/23 11:51 Pulse Ox 99 12/20/23 11:51 Oxygen Delivery Method Room Air 12/20/23 11:51 BMI result Body Mass Index 27.5 Tobacco/Smoking Status: Tobacco use Status Tobacco use date assessed 12/20/23 12/20/23 11:58 Patient Tobacco Use Status Never used Tobacco 12/20/23 11:58 e-Cigarette/Vaping Use Never Used 12/20/23 11:44 PHQ-9: PHQ-9 Score PHQ-9: Total score 2 12/20/23 12:01 Depression Screening Interpretation: Negative Thrive Assessment: Date of Thrive Assessment Date Thrive assessed 12/20/23 12/20/23 12:01 Currently or been in a relationship where the following occur: no concerns reported Const General: no acute distress HENMT Head: Yes normal to inspection Ears: hearing grossly normal bilaterally, external ears normal, TM's normal bilaterally and no periauricular adenopathy Face and sinus: Yes normal facial exam Neck Neck: Yes no lymphadenopathy and Yes supple Resp Effort & Inspection: normal respiratory effort Auscultation: clear to auscultation bilaterally Cardio Rhythm: regular rhythm Heart sounds: S1 normal heart sound present and S2 normal heart sound present Skin Other: There is erythematous rash under left breast Assessment and Plan Assessment & Plan (1) Candidiasis of breast: Code(s): B37.89 - Other sites of candidiasis Plan: Local care discussed with the patient ketoconazole cream as prescribed (2) HTN (hypertension): Code(s): I10 - Essential (primary) hypertension Plan: Continue metoprolol Medications: New ketoconazole 2% 1 appl topical DAILY 30 grams 0RF Coding Level of Care Code Est Pt Level 3 (73719) Diagnoses Candidiasis of breast B37.89 HTN (hypertension) I10
[2023-12-20 11:51] VITALS: BP 136/80; PULSE 62; O2SAT 99; BMI 27.5
== END 2023-12-20 12:13 | disposition home or self-care (01) ==
PROVIDERS: PCP Internal Medicine; Visit Provider Internal Medicine
DX: B37.89 Other sites of candidiasis (principal); I10 Essential (primary) hypertension
CPT/HCPCS: 99213

== ENCOUNTER 2024-02-05 11:19 | Outpatient (AMB) | payer MEDICARE, SELFPAY ==
--- NOTE | 2024-02-05 11:27 | AM.OFFWIN_ITS ---
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: No Accompanied by: Spouse Allergies latex Allergy (Severe, Verified 02/05/24 11:47) Rash - latex gloves metoclopramide [From Reglan] Allergy (Severe, Verified 02/05/24 11:47) Anxiety morphine Allergy (Severe, Verified 02/05/24 11:47) Nausea and Vomiting niacin [Niaspan Extended-Release] Allergy (Severe, Verified 02/05/24 11:47) Swelling Sltkeei-AYI-JiQ Reductase Inhibitor [Ddqssur-Pvc-Zou Reductase Inhibitor] Allergy (Severe, Verified 02/05/24 11:47) Muscle cramps Medication List - Last Reconciled 02/05/24 by ANGELICA Montana [algae omega PO ONCE] ascorbic acid (vitamin C) 1 g PO Q6H ascorbic acid (vitamin C) 1 g PO DAILY aspirin 81 mg PO DAILY azelaic acid 15% topical [calcium with magnesium PO] cholecalciferol (vitamin D3) 50 mcg PO DAILY [citrus bergamot PO] coenzyme Q10 (CoQ-10) PO metoprolol succinate ER 25 mg PO BID oregano oil 1,500 mg PO DAILY Saccharomyces boulardii (Daily Probiotic (S. boulardii)) PO vitamin B complex 1 cap PO DAILY HPI HPI Comments 2 History of Present Illness0 Details 68-year-old female with known von Willeb rand's type 1 here today with her with a chief complaint of: Bump on top of left hand/wrist that started about 45 minutes ago. All she denies any overt trauma she does admit and reaching into her back pocket to grab her phone as well as potentially striking the hand on her seat belt buckle. The areas only painful when touched. Initially felt a cool sensation to the area. Since onset the area has improved. [facility] Medical History (Updated 02/05/24 @ 12:09 by Chantel L O'Ayaan, TANK HOOP BENDER-BC) Osteopenia Tingling of both feet Vitamin B 12 deficiency Tubular adenoma Von Willebrand disease Post-operative nausea and vomiting Acquired thrombocytopenia Annual physical exam Pain of left calf Family history of breast cancer Mammogram normal Hyperlipidemia Normal Pap smear Normal colonoscopy Afib Vertigo Anxiety and depression Lyme disease, unspecified HTN (hypertension) Surgical History H/O cardiac radiofrequency ablation Hx of tonsillectomy Hx of colonoscopy Family History Father HTN (hypertension) Hx of CABG Diabetes mellitus Mother Colon cancer Myocardial infarction Maternal Aunt Breast cancer Sister Colon polyp Social History Housing: House Alcohol intake: current Alcohol intake frequency: holidays/special occasions only Patient Tobacco Use Status: Never used Tobacco e-Cigarette/Vaping Use: Never Used Current occupational status: retired Cognitive needs: No Hearing needs: No Vision needs: Yes Review of Systems Const All systems reviewed & are unremarkable except as noted in HPI and below Physical Exam Vital Signs: Last Vital Signs Temp 98 F 02/05/24 11:33 Pulse 65 02/05/24 11:33 Resp 14 02/05/24 11:33 BP 138/80 02/05/24 11:33 Pulse Ox 100 02/05/24 11:33 Oxygen Delivery Method Room Air 02/05/24 11:33 BMI result Body Mass Index 27.5 Extrem Elbow/forearm/wrist images: 2 1. ecchymotic raised area, tender to touch, surrounding skin intact; Neurovasc intact. Assessment & Plan Assessment & Plan (1) Von Willebrand disease: Comment: with bruising to L hand/wrist that started about 45 minutes ago and is resolving since onset. Plan: area wrapped lightly w/ JACK wrap and ice pack applied. Advised to keep elevated about heart, keep ice on for the next 24 hours 20 on 20 off and monitor skin. If worsening, seek care at ED. If improving, tomorrow start warm moist comps to the area. Code(s): D68.0 - Von Willebrand disease Plan This note is constructed using voice recognition software. While every effort has been made to ensure accuracy in glaze supervisor, still errors may have been included Sometimes, these errors may affect the content or meaning of the given sentence . Total time spent caring for the patient today was 30 minutes. This includes time spent before the visit reviewing the chart, time spent during the visit, and time spent after the visit on documentation Coding Level of Care Code Est Pt Level 4 (57217) Diagnoses Von Willebrand disease D68.0
[2024-02-05 11:33] VITALS: BP 138/80; PULSE 65; RESP 14; TEMP 36.6; O2SAT 100; BMI 27.5
== END 2024-02-05 11:57 | disposition home or self-care (01) ==
PROVIDERS: PCP Internal Medicine; Visit Provider Nurse Practitioner Family
DX: D68.00 Von Willebrand disease, unspecified (principal)
CPT/HCPCS: 99214

== ENCOUNTER 2024-04-03 07:32 | Outpatient (REF) | payer MEDICARE, SELFPAY ==
[2024-04-03 11:27] LABS: MANUAL DIFF FLAG NO
[2024-04-03 11:36] LABS: Basophils Percent Auto 0.7 % (0-2); Eosinophils Absolute Auto 0.1 X10*3/uL (0.0-0.4); Eosinophils Percent Auto 2.7 % (0-4); Hematocrit 41.6 % (37.0-47.0); Hemoglobin 14.2 g/dl (12.0-16.0); Imm Gran Abs Auto 0.01 X10*3/uL (0.00-0.03); Imm Gran Pct Auto 0.2 % (0.0-0.4); Lymphocytes Absolute Auto 1.5 X10*3/uL (1.2-4.9); Lymphocytes Percent Auto 33.9 % (20-40); Mean Corpuscular HGB Conc 34.1 g/dl (31.0-35.0); Mean Corpuscular Hemoglobin 31.7 pg (27.0-33.0); Mean Corpuscular Volume 92.9 fL (80.0-98.0); Mean Platelet Volume 10.4 fL (9.4-12.3); Monocytes Absolute Auto 0.4 X10*3/uL (0.1-1.2); Monocytes Percent Auto 8.6 % (2-11); Neutrophils Absolute Auto 2.4 x10*3/uL (2.0-8.3); Neutrophils Percent Auto 53.9 % (45-73); Platelet Count 145 X10*3/uL (160-400); Red Blood Count 4.48 X10*6/uL (4.20-5.50); Red Cell Distribution Width 12.9 % (11.0-16.0); White Blood Count 4.4 X10*3/uL (4.8-10.8)
[2024-04-03 11:51] LABS: Alanine Aminotransferase 12 U/L (0-31); Albumin Level 4.3 g/dL (3.5-5.0); Alkaline Phosphatase 60 U/L (39-117); Anion Gap 10 (12-20); Aspartate Amino Transferase 19 U/L (5-31); Bilirubin Total 0.7 mg/dL (0.0-1.0); Blood Urea Nitrogen 13 mg/dL (9-16); Calcium 9.4 mg/dL (8.4-10.2); Carbon Dioxide 27 mmol/L (22-29); Chloride 110 mmol/L (96-108); Cholesterol 229 mg/dL (<200); Estimated Glomerular Filt Rate > 60; Glucose Fasting 88 mg/dL (60-99); HDL Cholesterol 61 mg/dL (>40); LDL Cholesterol Calculated 153 mg/dL (<100); Potassium 4.2 mmol/L (3.3-5.1); Sodium 143 mmol/L (135-145); Total Protein 6.6 g/dL (6.5-8.0); Triglycerides 76 mg/dL (<150)
[2024-04-03 12:09] LABS: Vitamin D 25-OH Total 93.7 ng/mL (>30)
== END 2024-04-03 07:33 | disposition home or self-care (01) ==
LOC: HO.WFDLDS 07:32
PROVIDERS: Visit Provider Internal Medicine
DX: Z00.00 Encounter for general adult medical examination without abnormal findings (principal); I48.91 Unspecified atrial fibrillation; E78.5 Hyperlipidemia, unspecified; I10 Essential (primary) hypertension; D69.6 Thrombocytopenia, unspecified
CPT/HCPCS: 36415; 80053; 80061; 82306; 85025

== ENCOUNTER 2024-04-08 10:29 | Outpatient (AMB) | payer MEDICARE, SELFPAY ==
[2024-04-08 10:31] VITALS: BP 124/68; PULSE 68; O2SAT 99; BMI 27.1
--- NOTE | 2024-04-08 10:31 | A.OFFPC_ITS ---
Vital Signs 04/08/24 10:31 Height 5 ft 4 in Weight 158 lb BMI 27.1 BP 124/68 Blood Pressure Location Rt brachial Position Sitting Pulse 68 Pulse Source Pulse Oximeter Pulse Oximetry (%) 99 Oxygen Delivery Method Room Air Intake Visit Reasons: PE Intake Note: Pt is here today for PE. Allergies latex Allergy (Severe, Verified 04/08/24 10:33) Rash - latex gloves metoclopramide [From Reglan] Allergy (Severe, Verified 04/08/24 10:33) Anxiety morphine Allergy (Severe, Verified 04/08/24 10:33) Nausea and Vomiting niacin [Niaspan Extended-Release] Allergy (Severe, Verified 04/08/24 10:33) Swelling Dvjryer-GQR-ZlC Reductase Inhibitor [Nlxanqx-Cpi-Tea Reductase Inhibitor] Allergy (Severe, Verified 04/08/24 10:33) Muscle cramps Medication List - Last Reconciled 04/08/24 by Brittany Dutton MD [algae omega PO ONCE] ascorbic acid (vitamin C) 1 g PO Q6H ascorbic acid (vitamin C) 1 g PO DAILY aspirin 81 mg PO DAILY azelaic acid 15% topical [calcium with magnesium PO] cholecalciferol (vitamin D3) 50 mcg PO DAILY [citrus bergamot PO] coenzyme Q10 (CoQ-10) PO metoprolol succinate ER 25 mg PO BID oregano oil 1,500 mg PO DAILY Saccharomyces boulardii (Daily Probiotic (S. boulardii)) PO vitamin B complex 1 cap PO DAILY Tobacco use date assessed: 04/08/24 Dental Screening Dental Screen Date: 12/20/23 HPI PE HPI Details Patient presents for physical PFSH Medical History (Updated 04/08/24 @ 11:46 by Brittany Dutton MD) Vertigo Osteopenia Vitamin B 12 deficiency Tubular adenoma Von Willebrand disease Post-operative nausea and vomiting Annual physical exam Family history of breast cancer Mammogram normal Hyperlipidemia Normal Pap smear Afib Anxiety and depression Lyme disease, unspecified HTN (hypertension) Surgical History H/O cardiac radiofrequency ablation Hx of tonsillectomy Hx of colonoscopy Family History Father HTN (hypertension) Hx of CABG Diabetes mellitus Mother Colon cancer Myocardial infarction Maternal Aunt Breast cancer Sister Colon polyp Social History Housing: House Alcohol intake: current Alcohol intake frequency: holidays/special occasions only Patient Tobacco Use Status: Never used Tobacco e-Cigarette/Vaping Use: Never Used service: No Current occupational status: retired Cognitive needs: No Hearing needs: No Vision needs: Yes Questionnaire PHQ-9 Over the last 2 weeks, how often have you been bothered by any of the following problems? 1. Little interest or pleasure in doing things: not at all 2. Feeling down, depressed, or hopeless: not at all 3. Trouble falling or staying asleep, or sleeping too much: not at all 4. Feeling tired or having little energy: not at all 5. Poor appetite or overeating: not at all 6. Feeling bad about yourself - or that you are a failure or have let yourself or your family down: not at all 7. Trouble concentrating on things, such as reading the newspaper or watching television: not at all 8. Moving or speaking so slowly that other people could have noticed. Or the opposite - being so fidgety or restless that you have been moving around a lot more than usual: not at all 9. Thoughts that you would be better off or of hurting yourself in some way: not at all Total score: 0 Depression Screening Interpretation: Negative Depression Screening Done: Yes Source: Developed by Drs. Jerome Post, Meaghan Raines, Matthias Al and colleagues, with an educational nicole from [employer]. Thrive Questionnaire Date Thrive assessed: 12/20/23 AUDIT C Alcohol Use Questionnaire (AUDIT-C) 1. How often do you have a drink containing alcohol?: 2-4 times a month 2. How many drinks containing alcohol do you have on a typical day when you are drinking?: 1 or 2 3. How often do you have six or more drinks on one occasion?: Never Total Score: 2 ASHLEE-7 AMB Questionnaire ASHLEE-7 Date ASHLEE - 7 assessed: 12/20/23 Feeling nervous, anxious, or on edge: 0 = Not at all Not being able to stop or control worryin = Not at all Worrying too much about different things: 0 = Not at all Trouble relaxin = Not at all Being so restless that it is hard to sit still: 0 = Not at all Becoming easily annoyed or irritable: 1 = Several days Feeling afraid as if something awful might happen: 0 = Not at all Total ASHLEE-7 score (0-4 normal; 5-9 mild; 10-14 moderate; 15-21 severe): 1 Source: Developed by Drs. Jerome Post, Meaghan Raines, Matthias Al and colleagues, with an educational nicole from [employer]. Review of Systems Const All systems reviewed & are unremarkable except as noted in HPI and below Eyes Reports no additional complaints ENT Reports no additional complaints Card Reports no additional complaints Resp Reports no additional complaints GI Reports no additional complaints Reports no additional complaints Physical exam (Primary Care) Vital Signs: Last Vital Signs Pulse 68 04/08/24 10:31 BP 124/68 04/08/24 10:31 Pulse Ox 99 04/08/24 10:31 Oxygen Delivery Method Room Air 04/08/24 10:31 BMI result Body Mass Index 27.1 Tobacco/Smoking Status: Tobacco use Status Tobacco use date assessed 04/08/24 04/08/24 10:37 Patient Tobacco Use Status Never used Tobacco 04/08/24 10:37 e-Cigarette/Vaping Use Never Used 04/08/24 10:37 PHQ-9: PHQ-9 Score PHQ-9: Total score 0 04/08/24 10:39 Depression Screening Interpretation: Negative Thrive Assessment: Date of Thrive Assessment Date Thrive assessed 12/20/23 04/08/24 10:37 Const General: no acute distress HENMT Head: Yes normal to inspection Throat: Yes posterior oropharynx normal Eyes General: appearance normal, both eyes and all related structures Neck Neck: Yes no lymphadenopathy and Yes supple Resp Effort & Inspection: normal respiratory effort Auscultation: clear to auscultation bilaterally Cardio Rhythm: regular rhythm Heart sounds: S1 normal heart sound present and S2 normal heart sound present GI Palpation (GI): Soft to palpation Percussion: Yes normal to percussion Auscultation: normal bowel sounds Assessment and Plan Assessment & Plan (1) Von Willebrand disease: Code(s): D68.0 - Von Willebrand disease Plan: Continue to monitor (2) Osteopenia: Comment: DEXA 2021 Code(s): M85.80 - Other specified disorders of bone density and structure, unspecified site Plan: Continue vitamin-D supplement and regular exercise (3) Tubular adenoma: Comment: 07/2021 colonoscopy 2 polyps (<10 mm), repeat [address] 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 Code(s): E78.5 - Hyperlipidemia, unspecified Plan: Continue low-cholesterol diet (6) HTN (hypertension): Code(s): I10 - Essential (primary) hypertension Plan: Continue metoprolol (7) Annual physical exam: Code(s): Z00.00 - Encounter for general adult medical examination without abnormal findings Plan: Well-balanced diet regular exercise discussed with the patient return in 1 year Orders: Orders Complete Blood Count Auto Diff 1 Year D68.0 - Von Willebrand disease, E55.9 - Vitamin D deficiency, unspecified, I10 - Essential (primary) hypertension, I48.91 - Unspecified atrial fibrillation, Z00.00 - Encounter for general adult medical examination without abnormal findings Vitamin D 25-OH Total 1 Year D68.0 - Von Willebrand disease, E55.9 - Vitamin D deficiency, unspecified, I10 - Essential (primary) hypertension, I48.91 - Unspecified atrial fibrillation, Z00.00 - Encounter for general adult medical examination without abnormal findings Comprehensive [place]. Panel Fast 1 Year D68.0 - Von Willebrand disease, E55.9 - Vitamin D deficiency, unspecified, I10 - Essential (primary) hypertension, I48.91 - Unspecified atrial fibrillation, Z00.00 - Encounter for general adult medical examination without abnormal findings Lipid Panel 1 Year D68.0 - Von Willebrand disease, E55.9 - Vitamin D deficiency, unspecified, I10 - Essential (primary) hypertension, I48.91 - Unspecified atrial fibrillation, Z00.00 - Encounter for general adult medical examination without abnormal findings TSH reflex Free T4 1 Year D68.0 - Von Willebrand disease, E55.9 - Vitamin D deficiency, unspecified, I10 - Essential (primary) hypertension, I48.91 - Unspecified atrial fibrillation, Z00.00 - Encounter for general adult medical examination without abnormal findings Coding Level of Care Code Est Pt Prev Care >65y(61317) Diagnoses Von Willebrand disease D68.0 Osteopenia M85.80 Tubular adenoma D36.9 Mammogram normal Hyperlipidemia E78.5 HTN (hypertension) I10 Annual physical exam Z00.00
== END 2024-04-08 11:21 | disposition home or self-care (01) ==
PROVIDERS: Visit Provider Internal Medicine
DX: Z00.00 Encounter for general adult medical examination without abnormal findings (principal); D68.00 Von Willebrand disease, unspecified; M85.80 Other specified disorders of bone density and structure, unspecified site; D36.9 Benign neoplasm, unspecified site; E78.5 Hyperlipidemia, unspecified; I10 Essential (primary) hypertension
CPT/HCPCS: 99397

== ENCOUNTER 2024-04-24 09:50 | Outpatient (REF) | payer MEDICARE, SELFPAY ==
--- NOTE | ~2024-04-24 | MM_ITS ---
EXAMINATION: MM SCREENING DIGITAL BREAST TOMOSYNTHESIS, BILATERAL CLINICAL INFORMATION: Screening. Asymptomatic. COMPARISON: Mammography: This study is compared with prior exams dating back to 2019. TECHNIQUE: Digital breast tomosynthesis is performed in both the craniocaudal and mediolateral oblique views along with computer-aided detection (CAD). Synthesized 2D images are generated from the tomosynthesis. FINDINGS: The breasts are heterogeneously dense, which may obscure small masses (ACR BI-RADS breast composition Category c). There are no significant masses, abnormal calcifications, or other abnormalities. There are benign secretory calcifications in the upper outer quadrant of the right breast which are unchanged. MM/MM tomosynthesis screening BI IMPRESSION: No mammographic evidence of malignancy. ASSESSMENT: BI-RADS BI-RADS 2 - Benign Findings RECOMMENDATION: Routine annual mammography screening. 1 year F/U This examination should not preclude the clinical evaluation of a suspicious palpable abnormality. This patient's information was entered into a reminder system with a target due date for their next mammogram.
== END 2024-04-24 09:51 | disposition home or self-care (01) ==
LOC: HO.MAMMO 09:50
PROVIDERS: PCP Internal Medicine; Visit Provider Internal Medicine
DX: Z12.31 Encounter for screening mammogram for malignant neoplasm of breast (principal)
CPT/HCPCS: 77063; 77067

== ENCOUNTER → 2024-04-24 10:00 | Outpatient (BNV) | payer MEDICARE, SELFPAY | PROVIDERS: PCP Internal Medicine; Visit Provider Radiology Diagnostic Radiology | DX: Z12.31 Encounter for screening mammogram for malignant neoplasm of breast (principal) | CPT/HCPCS: 77063; 77067 ==

== ENCOUNTER 2024-09-24 13:51 | Outpatient (AMB) | payer MEDICARE, SELFPAY ==
--- NOTE | 2024-09-24 13:54 | MHC.PC.OV ---
Vital Signs 09/24/24 13:55 Height 5 ft 4 in Weight 153 lb BMI 26.3 BP 124/74 Blood Pressure Location Lt brachial Position Sitting Pulse 70 Pulse Source Pulse Oximeter Pulse Oximetry (%) 100 Oxygen Delivery Method Room Air Intake Visit Reasons: Regular visit Intake Note: Pt is here today for a sick visit. Pt c/o pain on her big toe that comes and goes. Allergies latex Allergy (Severe, Verified 04/08/24 10:33) Rash - latex gloves metoclopramide [From Reglan] Allergy (Severe, Verified 04/08/24 10:33) Anxiety morphine Allergy (Severe, Verified 04/08/24 10:33) Nausea and Vomiting niacin [Niaspan Extended-Release] Allergy (Severe, Verified 04/08/24 10:33) Swelling Ggswemr-QFJ-XgZ Reductase Inhibitor [Pyupmdg-Ibv-Bjr Reductase Inhibitor] Allergy (Severe, Verified 04/08/24 10:33) Muscle cramps Tobacco use date assessed: 09/24/24 Dental Screening Dental Screen Date: 12/20/23 HPI Regular visit HPI Details Pt c/o L forefoot pain for a few weeks, worse when walking. Patient denies joint swelling erythema warmth or injury. She has started wearing new sneakers 2 weeks ago and the pain has been getting better. She denies any pain at rest PFSH Medical History Vertigo Osteopenia Vitamin B 12 deficiency Tubular adenoma Von Willebrand disease Post-operative nausea and vomiting Annual physical exam Family history of breast cancer Mammogram normal Hyperlipidemia Normal Pap smear Afib Anxiety and depression Lyme disease, unspecified HTN (hypertension) Surgical History H/O cardiac radiofrequency ablation Hx of tonsillectomy Hx of colonoscopy Family History Father HTN (hypertension) Hx of CABG Diabetes mellitus Mother Colon cancer Myocardial infarction Maternal Aunt Breast cancer Sister Colon polyp Social History Housing: House Alcohol intake: current Alcohol intake frequency: holidays/special occasions only Patient Tobacco Use Status: Never used Tobacco e-Cigarette/Vaping Use: Never Used service: No Current occupational status: retired Cognitive needs: No Hearing needs: No Vision needs: Yes Questionnaire PHQ-9 Over the last 2 weeks, how often have you been bothered by any of the following problems? 1. Little interest or pleasure in doing things: not at all 2. Feeling down, depressed, or hopeless: not at all 3. Trouble falling or staying asleep, or sleeping too much: several days 4. Feeling tired or having little energy: not at all 5. Poor appetite or overeating: not at all 6. Feeling bad about yourself - or that you are a failure or have let yourself or your family down: not at all 7. Trouble concentrating on things, such as reading the newspaper or watching television: not at all 8. Moving or speaking so slowly that other people could have noticed. Or the opposite - being so fidgety or restless that you have been moving around a lot more than usual: not at all 9. Thoughts that you would be better off or of hurting yourself in some way: not at all Total score: 1 Depression Screening Interpretation: Negative Depression Screening Done: Yes [id number] - PHQ-9 Billing: Yes Source: Developed by Drs. Jerome Post, Meaghan Raines, Matthias Al and colleagues, with an educational nicole from [employer]. Thrive Questionnaire Date Thrive assessed: 09/24/24 I am a: Patient What is your living situation today?: I have a steady place to live Within the past 12 months, did the food you bought not last and you didn't have the money to get more?: Never true Within the past 12 months, did you worry whether your food would run out before you got money to buy more?: Never true Do you have trouble paying for medicines?: No Do you have trouble getting transportation to medical appointments?: No Do you have trouble paying your heating and electricity bill?: No Do you have trouble taking care of your child, family member or friend?: No Do you have trouble with day-to-day activities such as bathing, preparing meals, shopping, managing finances, etc.?: No Are you currently unemployed and looking for a job?: No Are you interested in more education?: No Please select the resources that you would like help with: None Currently or been in a relationship where the following occur: No concerns reported THRIVE Score: 0 AUDIT C Alcohol Use Questionnaire (AUDIT-C) 1. How often do you have a drink containing alcohol?: Monthly or less 2. How many drinks containing alcohol do you have on a typical day when you are drinking?: 1 or 2 3. How often do you have six or more drinks on one occasion?: Never Total Score: 1 ASHLEE-7 AMB Questionnaire ASHLEE-7 Date ASHLEE - 7 assessed: 09/24/24 Feeling nervous, anxious, or on edge: 1 = Several days Not being able to stop or control worryin = Not at all Worrying too much about different things: 1 = Several days Trouble relaxin = Not at all Being so restless that it is hard to sit still: 0 = Not at all Becoming easily annoyed or irritable: 0 = Not at all Feeling afraid as if something awful might happen: 0 = Not at all Total ASHLEE-7 score (0-4 normal; 5-9 mild; 10-14 moderate; 15-21 severe): 2 Source: Developed by Drs. Jerome Post, Meaghan Raines, Matthias Al and colleagues, with an educational nicole from [employer]. Review of Systems Const All systems reviewed & are unremarkable except as noted in HPI and below ENT Reports no additional complaints Card Reports no additional complaints Resp Reports no additional complaints GI Reports no additional complaints Physical exam (Primary Care) Vital Signs: Last Vital Signs Pulse 70 09/24/24 13:55 BP 124/74 09/24/24 13:55 Pulse Ox 100 09/24/24 13:55 Oxygen Delivery Method Room Air 09/24/24 13:55 BMI result Body Mass Index 26.3 Tobacco/Smoking Status: Tobacco use Status Tobacco use date assessed 09/24/24 09/24/24 14:00 Patient Tobacco Use Status Never used Tobacco 09/24/24 13:55 e-Cigarette/Vaping Use Never Used 09/24/24 13:55 PHQ-9: PHQ-9 Score PHQ-9: Total score 1 09/24/24 14:28 Depression Screening Interpretation: Negative Thrive Assessment: Date of Thrive Assessment Date Thrive assessed 09/24/24 09/24/24 14:00 Currently or been in a relationship where the following occur: No concerns reported HENMT Head: Yes normal to inspection Resp Effort & Inspection: normal respiratory effort Auscultation: clear to auscultation bilaterally Cardio Rhythm: regular rhythm Heart sounds: S1 normal heart sound present and S2 normal heart sound present Extrem Other: Left foot: no soft tissue swelling erythema or warmth no joint tenderness in MTP PIP or DIP joint Coding Level of Care Code Est Pt Level 3 (04870) Diagnoses Left foot pain M79.672 Additional Codes PHQ-9 - 52155 - PHQ-9 Billing: Yes ([id number]) Assessment & Plan Assessment & Plan (1) Left foot pain: Code(s): M79.672 - Pain in left foot Category: Medical Plan: Improving, patient was advised to wear comfortable, supportive shoes
[2024-09-24 13:55] VITALS: BP 124/74; PULSE 70; O2SAT 100; BMI 26.3
== END 2024-09-24 15:35 | disposition home or self-care (01) ==
PROVIDERS: PCP Internal Medicine; Visit Provider Internal Medicine
DX: M79.672 Pain in left foot (principal)

== ENCOUNTER → 2024-09-24 13:51 | Outpatient (BNVA) | payer MEDICARE, SELFPAY | PROVIDERS: PCP Internal Medicine; Visit Provider Internal Medicine | DX: M79.672 Pain in left foot (principal) | CPT/HCPCS: 96127; 99212 ==

== ENCOUNTER 2025-04-14 08:50 | Outpatient (AMB) | payer MEDICARE, SELFPAY ==
--- NOTE | 2025-04-14 08:52 | A.OFFVIS_ITS ---
Vital Signs 04/14/25 08:56 Height 5 ft 4 in Weight 153 lb 0.013 oz BMI 26.3 BP 134/62 Blood Pressure Location Lt brachial Position Sitting Pulse 70 Pulse Source Monitor Intake Visit Reasons: r/s 12/30/24 1 yr followup w/ekg Intake Note: 1 yr f/up-ekg Anchor Tack Puller Required: No Accompanied by: Significant Other Allergies latex Allergy (Severe, Verified 04/08/24 10:33) Rash - latex gloves metoclopramide [From Reglan] Allergy (Severe, Verified 04/08/24 10:33) Anxiety morphine Allergy (Severe, Verified 04/08/24 10:33) Nausea and Vomiting niacin [Niaspan Extended-Release] Allergy (Severe, Verified 04/08/24 10:33) Swelling Sxxsfjk-DUP-BtO Reductase Inhibitor [Rwmkpak-Ugo-Bzs Reductase Inhibitor] Allergy (Severe, Verified 04/08/24 10:33) Muscle cramps Medication List - Last Reconciled 04/14/25 by Michael Lara MD [algae omega PO ONCE] ascorbic acid (vitamin C) 1 g PO Q6H aspirin 81 mg PO DAILY azelaic acid 15% topical [calcium with magnesium PO] cholecalciferol (vitamin D3) 2,000 units PO DAILY [citrus bergamot PO] coenzyme Q10 (CoQ-10) PO mecobalamin (vitamin B12) mcg PO metoprolol succinate ER 25 mg PO DAILY oregano oil 1,500 mg PO DAILY Saccharomyces boulardii (Daily Probiotic (S. boulardii)) PO HPI Comments Details: 70-year-old female here for follow-up. She has background history of palpitations and atrial fibrillation. She underwent ablation in the past. She also has von willebrand disease and previous bleeding. Previously echocardiography showed normal left ventricular function. She also had cardiac event monitor which did not show any arrhythmia. We discussed about starting anticoagulation but given her history of von Willebrand's disease she decided not to take it and has been taking aspirin. She returns for follow-up. She has had episode atrial fibrillation which she ordered with her at watch. Reviewing this she had shown runs of atrial fibrillation with conversion to sinus rhythm to strips but other strips were he has low at we will fibrillation. She saying that she had palpable is up to 1 hour at a time had 2 episodes. She has been tolerating baby aspirin. [facility] Medical History Vertigo Osteopenia Vitamin B 12 deficiency Tubular adenoma Von Willebrand disease Post-operative nausea and vomiting Annual physical exam Family history of breast cancer Mammogram normal Hyperlipidemia Normal Pap smear Afib Anxiety and depression Lyme disease, unspecified HTN (hypertension) Surgical History H/O cardiac radiofrequency ablation Hx of tonsillectomy Hx of colonoscopy Family History Father HTN (hypertension) Hx of CABG Diabetes mellitus Mother Colon cancer Myocardial infarction Maternal Aunt Breast cancer Sister Colon polyp Social History Housing: House Alcohol intake: current Alcohol intake frequency: holidays/special occasions only Patient Tobacco Use Status: Never used Tobacco e-Cigarette/Vaping Use: Never Used service: No Current occupational status: retired Cognitive needs: No Hearing needs: No Vision needs: Yes Review of Systems Const Denies chills, Denies fatigue, Denies fever(s), Denies frequent falls, Denies weakness, Denies weight gain and Denies weight loss ENT Denies dizziness Card Denies chest pain, Denies leg edema, Denies lightheadedness, Denies palpitations, Denies dyspnea and Denies dyspnea on exertion Resp Denies cough, Denies dyspnea and Denies dyspnea on exertion GI Denies hematochezia Musc Denies abnormal gait, Denies muscle weakness, Denies numbness, Denies radiating pain into limb and Denies tingling Neuro Denies abnormal gait, Denies dizziness, Denies frequent falls, Denies numbness, Denies tingling and Denies weakness Endo Denies fatigue and Denies palpitations Physical Exam Vital Signs: Last Vital Signs Pulse 70 04/14/25 08:56 BP 134/62 04/14/25 08:56 BMI result Body Mass Index 26.3 GENERAL APPEARANCE: in no acute distress, pleasant. NECK: no carotid bruit, no jugular venous distention. SKIN: no suspicious lesions, warm and dry. HEART: no murmurs, regular rate and rhythm. LUNGS: clear to auscultation bilaterally. ABDOMEN: soft, nontender. EXTREMITIES: no edema. PERIPHERAL PULSES: equal. NEUROLOGIC: No gross deficits, AAO X 3 Office Procedures EKG Details: Sinus rhythm 70 beats per minute, normal axis, normal ECG, QTC 401 milliseconds. [id number], Complete Assessment & Plan Assessment & Plan (1) Von Willebrand disease: Code(s): D68.0 - Von Willebrand disease Category: Medical (2) Afib: Comment: s/p ablation 2009, f/u cardiology at [facility], on 81 mg of ASA Code(s): I48.91 - Unspecified atrial fibrillation Category: Medical Plan Pleasant 68 female who is here for follow. She has background history atrial fibrillation she underwent ablation in [place]. She also has von Willebrand disease and previously had GI bleed. She continues to have some bruising on her arms. She is taking baby aspirin at this stage. We discussed about anticoagulation in the past but she was not comfortable with that. In the past when we did monitoring there was no episode of atrial fibrillation but recently she has had couple of episodes which were long in duration. She has capture the strips with a watch and clearly she had episode of atrial fibrillation. I have discussed with her and her that she has paroxysmal atrial fibrillation which appears to be self-limiting but the concern mostly is about risk of stroke in her. Von Willebrand disease increases risk of bleeding but does not have any protective role in general for preventing stroke. I discussed again with the patient in her has been about considering anticoagulation. I also discussed in detail about Watchman procedure that this can be an alternative way of decreasing her stroke risk without anticoagulation. She is taking baby aspirin and has been tolerating it which is the general long-term antiplatelet strategy after Watchman procedure. The patient will have further discussions with her family at home and we will get back to us about this. In the meantime no changes in medications and she will continue to monitor herself with [employer] watch. Thank you for allowing me to participate in the care of your patient. Please feel free to contact me if you have any questions. Coding Level of Care Code Est Pt Level 5 (40872) Diagnoses Von Willebrand disease D68.0 Afib I48.91 CPT Codes EKG - CPT: 69163-[id number], Complete ([id number]) Time Spent (min) 40
[2025-04-14 08:56] VITALS: BP 134/62; PULSE 70; BMI 26.3
--- OUTSIDE RECORDS SUMMARY | 2025-04-14 09:12 | XMS_ITS | Data Portability ---
Author Organization [place] [facility] Ben[facility] Ross AONE Kirvin Address [address] [place] [address] Care Team Providers Care Mold Puller Name Role Phone RADHA KAUR Primary Care Provider Assessment Encounter Date Assessment Date Assessment LastModified by Organization Details LastModified Time 08/12/2023 08/12/2023 68-year-old fema le with left knee pain. History examination and x-rays are suggestive of contusion with likely hemarthrosis in light of her von Willebrand's. The persistence of her pain and positive Vincent testing are suggestive of possible internal derangement. Recommendations are for MRI of left knee to evaluate for occult fracture versus internal derangement. Not available 08/12/2023 09:31:50 08/19/2023 08/19/2023 Patient has a nondisplaced subchondral fracture of the lateral tibial plateau. She has more medial joint pain on today's visit but no significant findings on her x-ray compared to her previous visit. She does have some bruising likely due to her hypocoagulable state/von Willebrand's disease. We discussed typical treatment. Its been a month since her initial injury. We discussed treatment options including knee immobilizer, double hinged knee brace and conservative care. She would like to just avoid impact activities. If she is having increased pain or any swelling, she will return for follow-up sooner. She does have some mild soft tissue swelling of the lower leg not focal to her calf. There is no reason to believe she has a DVT. She will follow-up as previously scheduled in our [place] office, sooner for any complications. 08/12/2023 68-year-old female with left knee pain. History examination and x-rays are suggestive of contusion with likely hemarthrosis in light of her von Willebrand's. The persistence of her pain and positive Vincent testing are suggestive of possible internal derangement. Recommendations are for MRI of left knee to evaluate for occult fracture versus internal derangement. [email or web address] Not available 08/30/2023 16:26:09 09/09/2023 09/09/2023 68-year-old fema le 2 months status post fracture to tibial plateau has made excellent clinical progress. She is currently pain-free and nontender with full range of motion and overall excellent function. We talked about the potential role for physical therapy at this point though she has declined an order. At this juncture, she is appropriate for follow-up as needed. Not available 09/09/2023 11:00:59 Plan of Treatment Reminders Order Date Submit Date Provider Last Modified By Organization Details Last Modified Time Details Appointments None recorded. Lab None recorded. Referral None recorded. Procedures None recorded. Surgeries None recorded. Imaging XR, knee, 4 or more view 2022 023 BETSY LAYNE [facility], [address], [place], [address], 10:33:20 MRI, knee, w/o contrast - MRI: L knee without contrast.Di agnosis: Joint pain refractory to conservativ e treatment. Worsening pain and disability. Evaluate for internal derangement , AVN, or occult fracture and characteriz e degree of degenerativ e changes. 2022 [email or web address] [facility], [address], [place], [address], 12:24:54 Medication Orders None recorded. Patient TargetsNo targets recorded. Patient Instructions Encounter Date Encounter Id Patient Instructions Last Modified By Organization Details Last Modified Time 08/12/2023 [id number] Outside x-rays obtained during her ER visit are reviewed to show no evidence for fracture or dislocation. Not available 08/12/2023 09:30:43 Reason for Referral None Reported. Results Created Date Observation Date Name Description Value Unit Range Abnormal Flag Note LastModifiedBy Organization Detail LastModifiedTime 08/13/20 23 08/13/2023 MRI, knee, w/o contr ast No observ ation record ed. [facility] [address], [place], [address], 08/15/2023 12:03:23 08/20/20 XR, knee, 4 or more view No observ ation record ed. [facility] [address], [place], [address], 08/20/2023 10:33:20 Result Notes None recorded. Problems Name Problem SNOMED Code Status Onset Date Resolution Date Notes Provider Name and Address Organization Details Recorded Time Closed fracture of left tibial plateau 949872562445418 07 Active 2022 RHONDA MAHER PA-C [address], [place], [address], [place] [facility], P 3 16:35:16 Fracture of condyle of tibia 229662615 Active 2022 RHONDA MAHER PA-C [address], [place], [address], [place] [facility], P 3 16:37:12 Fracture of condyle of tibia 910637759 Active 2022 RHONDA MAHER PA-C [address], [place], [address], [place] [facility], P 3 16:37:19 Problem Notes None recorded. Procedures Surgical History Date Name Laterality Status Provider Name and Address Organization Details Recorded Time cardiac ablation using fluoroscopy guidance completed Krishan Smith [place] - [facility] 08/12/2023 09:11:32 ligation of fallopian tube completed Krishan Smith [place] [facility] 08/12/2023 09:11:52 tonsillectomy completed Krishan Smith [place] [facility] 08/12/2023 09:11:59 Imaging Results None recorded. Procedure Notes None recorded. Medical Equipment None Reported. Allergies Allergen ID Allergen Name Allergen Category Reaction Reaction Severity Criticality Documentation Date Start Date Code Code System Note Provider Name and Address Organization Details Recorded Time 8588 latex environme nt,medica tion Not available Not available Not available 08/12/2023 04056 91 RxNorm Krishan ngo, [facility] 3 09:08:53 8589 morphine medicatio n Not available Not available Not available 08/12/2023 7052 RxNorm Krishan ngo, [facility], P 3 09:09:00 8590 Product containin g 3-hydroxy -3-methyl glutaryl- coenzyme A reductase inhibitor (product) medicatio n Not available Not available Not available 08/12/2023 93717 009 SNOMED Krishan ngo, [facility], P 3 09:09:18 8591 Niaspan medicatio n Not available Not available Not available 08/12/2023 20125 6 RxNorm Krishan ngo, [facility], P 3 09:09:27 8592 Reglan medicatio n Not available Not available Not available 08/12/2023 9230 RxNorm Krishan ngo, [facility], P 3 09:09:33 Medications Name Sig Start Date Stop Date Status Note LastModified by Organization Details LastModified Time famotidine 20 mg tablet active Not Available Not Available No t Available metoprolol succinate ER 25 mg tablet,extend ed release 24 hr active Not Available Not Available Not Available doxycycline hyclate 100 mg tablet 2022 completed Not Available Not Available Not Available Vitals Date Recorded Body height Body mass index (BMI) Body weight Provider Name and Address Organization Details Last Updated DateTime 08/12/2023 162.56 cm 27.8 kg/m2 37006.96 josé miguel Smith [facility], [facility] 08/12/2023 09:09:57 Date Recorded Body height Body mass index (BMI) Body weight Provider Name and Address Organization Details Last Updated DateTime 08/19/2023 162.56 cm 27.1 kg/m2 12905.59 josé miguel Adria Meng [place] [facility] 08/19/2023 11:29:06 Social History None recorded. Functional Status Question Answer Note LastModified by Organizat ion Details LastModified Time How many times per week do you consume alcohol? 1-2 times per week [email or web address] Information not available 08/12/2023 Do you use any illicit or recreational drugs? No [email or web address] Information not available 08/12/2023 Do you or have you ever used any other forms of tobacco or nicotine? No [email or web address] Information not available 08/12/2023 What is your level of alcohol consumption? Occasional [email or web address] Information not available 08/12/2023 Mental Status None recorded. Family History Relationship Description Onset Age of this Age Resolved Age Notes LastModified by Organization Details LastModified Time Mother Arthritis [email or web address] Not avai [email or web address] 08/12/2023 09:12:09 Mother Family history of malignant neoplasm [email or web address] Not available 12/2022 09:12:21 Mother Heart disease [email or web address] Not available 12/2022 09:12:30 Sister Family history of malignant neoplasm [email or web address] Not available 12/2022 09:12:21 Father Heart disease [email or web address] Not available 12/2022 09:12:39 Father Diabetes mellitus [email or web address] Not available 12/2022 09:12:50 Father Hyperlipidem ia [email or web address] Not available 12/2022 09:12:57 Father Hypertensive disorder [email or web address] Not available 12/2022 09:13:06 Medical History Condition Response Hypertension Y Gynecological HistoryNo gynecological history recorded. Obstetrics History GPAL:G 0 P 0 0 0 0 Past Encounters Encounter ID Performer Location Encounter Start Date Encounter Closed Date Diagnosis/Indication Diagnosis SNOMED-CT Code Diagnosis ICD10 Code Diagnosis Note [id number] [facility] [address] [facility] [address] [place] [address] 08/12/2023 08:55:26 08/12/2023 09:43:37 Pain of left knee joint 5614167287 53578 M25.562 [id number] PASHA ADAMS [facility] [address] [address] 08/19/2023 10:59:45 08/19/2023 12:09:16 Pain of left knee joint 8605285633 64352 M25.562 Fracture o f condyle of tibia 288161159 S82.115D Nondisplac ed subchondra l fracture lateral [id number] PASHA LEZAMA [facility] [address] [facility] [address] [place] [address] 09/09/2023 10:34:15 09/09/2023 10:53:43 Fracture of condyle of tibia 099697982 S82.115D Health Concerns Section Related Observation LastModified by Organization Detai ls LastModified Time None Recorded Concern Status LastModified by Organization Details LastModified Time None Recorded Advance Directives Directive None Recorded Payers Encounter Date Sequence Insurance Name Policy Number Policy Corbin Covered Member ID Corbin Member ID Guarantor Name 08/12/2023 1 [employer] (MEDICARE REPLACEMENT/ ADVANTAGE - PPO) [id number] Rosina Clemens Pidgeon [id number] Rosina Pidgeon 08/19/2023 1 [employer] (MEDICARE REPLACEMENT/ ADVANTAGE - PPO) [id number] Rosina Clemens Pidgeon [id number] Rosina Pidgeon 09/09/2023 1 [employer] (MEDICARE REPLACEMENT/ ADVANTAGE - PPO) [id number] Rosina Jayleen Pidgeon [id number] Rosina Pidgeon Notes Date Note Type Note Provider Name and Address Organization Details Recorded Time 08/12/2023 text/html 68-year-old kelton patrick presents with left knee pain. She reports that approximately 1 month ago she had a ground-level fall coming down striking the left knee on the ground causing some immediate discomfort and bruising inside of the first day or 2. She was not surprised by this as she is known to have von Willebrand's. She states that she has had persistent pain at the anterolateral aspect of the knee ever since then she reports some bruising that has evolved at the left lower extremity and in the ankle as far out as 2 weeks from the time of the original injury. She describes for me sensations of a rug burn on the skin and feelings of numbness as well as burning especially with squatting. She denies a history of any prior surgery fracture dislocation or need for medical attention to her left knee. She went to the emergency department soon after the injury and had an examination and x-ray. She was told that there was no signs of fracture or dislocation. MISSAEL REED PA-C [address] [facility] [address], [place], [address], [place] [facility] 08/12/2023 09:33:15 08/19/2023 text/html Patient is a 68-year-old female who presents today for left knee pain. She was seen on 08/12/2023 by Missael Reed PA-C. She had a head injury to her knee concerning for possible tibial plateau fracture. She was sent for an MRI. She was diagnosed with anondisplaced subchondral fracture of the lateral tibialplateau extending to the lateral tibial metaphysis anteriorly with surrounding bone edema. Intact overlying cartilage. She has follow-up scheduled in our [place] office. Unfortunately, she fell again on 08/15/2023 and had some increased pain. She has von Willebrand disease and bruises easily. She noted bruising in her lower leg. 08/12/2023 BF:68-year-old female presents with left knee pain. She reports that approximately 1 month ago she had a ground-level fall coming down striking the left knee on the ground causing some immediate discomfort and bruising inside of the first day or 2. She was not surprised by this as she is known to have von Willebrand's. She states that she has had persistent pain at the anterolateral aspect of the knee ever since then she reports some bruising that has evolved at the left lower extremity and in the ankle as far out as 2 weeks from the time of the original injury. She describes for me sensations of a rug burn on the skin and feelings of numbness as well as burning especially with squatting. She denies a history of any prior surgery fracture dislocation or need for medical attention to her left knee. She went to the emergency department soon after the injury and had an examination and x-ray. She was told that there was no signs of fracture or dislocation. RHONDA MAHER PA-C [address], [place], [address], [place] [facility] 08/30/2023 16:27:11 09/09/2023 text/html 68-year-old fema le is 2 months status post nondisplaced fracture of lateral tibial plateau. She reports that the pain is completely resolved. She states that she has full range of motion of the knee and excellent power. She only reports mild discomfort if she is in a squatted position for a sustained period of time or if she is kneeling down directly onto the knee. MISSAEL REED PA-C [address] [place] [address], [place], [address], [place] [facility] 09/09/2023 11:01:12 OBGyn Episode No OBEpisode recorded.
== END 2025-04-14 09:41 | disposition home or self-care (01) ==
LOC: HO.HCS 08:51
PROVIDERS: PCP Internal Medicine; Visit Provider Internal Medicine Cardiovascular Disease
DX: D68.00 Von Willebrand disease, unspecified (principal); I48.91 Unspecified atrial fibrillation
CPT/HCPCS: 99214

== ENCOUNTER → 2025-04-14 08:50 | Outpatient (BNVA) | payer MEDICARE, SELFPAY | PROVIDERS: PCP Internal Medicine; Visit Provider Internal Medicine Cardiovascular Disease | DX: D68.00 Von Willebrand disease, unspecified (principal); I48.91 Unspecified atrial fibrillation | CPT/HCPCS: 93005; 99212 ==

== ENCOUNTER 2025-05-07 08:49 | Outpatient (REF) | payer MEDICARE, SELFPAY ==
--- OUTSIDE RECORDS SUMMARY | 2025-05-07 09:04 | XMS_ITS | Data Portability ---
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 08/12/2023 68-year-old female with left knee pain. History examination and x-rays are suggestive of contusion with likely hemarthrosis in light of her von Willebrand's. The persistence of her pain and positive Vincent testing are suggestive of possible internal derangement. Recommendations are for MRI of left knee to evaluate for occult fracture versus internal derangement. [email or web address] Not available 08/30/2023 16:26:09 09/09/2023 09/09/2023 68-year-old [...] knee, 4 or more view 2022 023 [facility], [address], [place], [address], 10:33:20 MRI, knee, w/o contrast - MRI: L knee without contrast. Diagnosis: Joint pain refractory to conservativ e treatment. Worsening pain and disability. Evaluate for internal derangement , AVN, or occult fracture and characteriz e degree of degenerativ e changes. 2022 023 arron n28 [facility], [address] [facility], [place], [address], 12:24:54 Medication Orders None recorded. Patient TargetsNo targets recorded. Patient Instructions Encounter Date Encounter Id Patient Instructions Last Modified By Organization Details Last Modified Time 08/12/2023 [id number] Outside x-rays obtained during her ER visit are reviewed to show no evidence for fracture or dislocation. Not available 08/12/2023 09:30:43 Reason for Referral None Reported. Results Created Date Observation Date Name Description Value Unit Range Abnormal Flag Note LastModifiedBy Organization Detail LastModifiedTime 08/13/20 23 08/13/2023 MRI, knee, w/o contr ast No observ ation record ed. [facility] [address], [place], [address], 08/15/2023 12:03:23 08/20/20 XR, knee, 4 or more view No observ ation record ed. [email or web address] [facility] [address], [place], [address], 08/20/2023 10:33:20 Result Notes None recorded. Problems Name Problem SNOMED Code Status Onset Date Resolution Date Notes Provider Name and Address Organization Details Recorded Time Closed fracture of left tibial plateau 561117862607416 07 Active 2022 RHONDA MAHER PA-C [address], [place], [address], [place] [facility], P 3 16:35:16 Fracture of condyle of tibia 187667708 Active 2022 RHONDA MAHER PA-C [address], [place], [address], [place] [facility], P 3 16:37:12 Fracture of condyle of tibia 722940795 Active 2022 RHONDA MAHER PA-C [address], [place], [address], [place] [facility], [facility] 3 16:37:19 Problem Notes None recorded. Procedures Surgical History Date Name Laterality Status Provider Name and Address Organization Details Recorded Time cardiac ablation using fluoroscopy guidance completed Krishan Smith [place] [facility] 08/12/2023 09:11:32 ligation of fallopian tube completed Krishan Smith [place] [facility] 08/12/2023 09:11:52 tonsillectomy completed Krishan Smith [place] [facility] 08/12/2023 09:11:59 Imaging Results None recorded. Procedure Notes None recorded. Medical Equipment None Reported. Allergies Allergen ID Allergen Name Allergen Category Reaction Reaction Severity Criticality Documentation Date Start Date Code Code System Note Provider Name and Address Organization Details Recorded Time 8588 latex environme nt,medica tion Not available Not available Not available 08/12/2023 29731 91 RxNorm Krishan ngo, [place] [facility] 09:08:53 8589 morphine medicatio n Not available Not available Not available 08/12/2023 7052 RxNorm Krishan ngo, [facility], P 3 09:09:00 8590 Product containin g 3-hydroxy -3-methyl glutaryl- coenzyme A reductase inhibitor (product) medicatio n Not available Not available Not available 08/12/2023 20000 009 SNOMED Krishan Smith [facility], [facility], P 3 09:09:18 8591 Niaspan medicatio n Not available Not available Not available 08/12/2023 01577 6 RxNorm Krishan ngo, [facility], P 3 09:09:27 8592 Reglan medicatio n Not available Not available Not available 08/12/2023 9230 RxNorm Krishan ngo, [facility], P 3 09:09:33 Medications Name Sig [...] Updated DateTime 08/12/2023 162.56 cm 27.8 kg/m2 87369.96 josé miguel Smith [facility], P 08/12/2023 09:09:57 Date Recorded Body height Body mass index (BMI) Body weight Provider Name and Address Organization Details Last Updated DateTime 08/19/2023 162.56 cm 27.1 kg/m2 09032.59 josé miguel Adria Meng [place] [facility] 08/19/2023 11:29:06 Social History None recorded. Functional Status Question Answer Note LastModified by Organizat ion Details LastModified Time How many times per week do you consume alcohol? 1-2 times per week [email or web address] Information not available 08/12/2023 Do you use any illicit or recreational drugs? No [email or web address] Information not available 08/12/2023 Do you or have you ever used any other forms of tobacco or nicotine? No [email or web address] Information not available 08/12/2023 What is your level of alcohol consumption? Occasional [id number] Information not available 08/12/2023 Mental Status None recorded. Family History Relationship Description Onset Age of this Age Resolved Age Notes LastModified by Organization Details LastModified Time Mother Arthritis [email or web address] Not avai cliff 08/12/2023 09:12:09 Mother Family history of malignant neoplasm [email or web address] Not available 12/2022 09:12:21 Mother Heart disease [email or web address] Not available 12/2022 09:12:30 Sister Family history of malignant neoplasm [email or web address] Not available 12/2022 09:12:21 Father Heart disease [email or web address] Not available 12/2022 09:12:39 Father Diabetes mellitus [email or web address] Not available 12/2022 09:12:50 Father Hyperlipidem ia [email or web address] Not available 12/2022 09:12:57 Father Hypertensive disorder [email or web address] Not available 12/2022 09:13:06 Medical History Condition Response Hypertension Y Gynecological HistoryNo gynecological history recorded. Obstetrics History GPAL:G 0 P 0 0 0 0 Past Encounters Encounter ID Performer Location Encounter Start Date Encounter Closed Date Diagnosis/Indication Diagnosis SNOMED-CT Code Diagnosis ICD10 Code Diagnosis Note [id number] PASHA LE[address]AMAanil [address] [facility] [address] [place] [address] 08/12/2023 08:55:26 08/12/2023 09:43:37 Pain of left knee joint 3539739450 51458 M25.562 [id number] PASHA ADAMS [facility] [address] [place] [address] 08/19/2023 10:59:45 08/19/2023 12:09:16 Pain of left knee joint 0317812674 96192 M25.562 Fracture o f condyle of tibia 813414983 S82.115D Nondisplac ed subchondra l fracture lateral [id number] PASHA LEZAMA [facility] [address] [facility] [address] [place] [address] 09/09/2023 10:34:15 09/09/2023 10:53:43 Fracture of condyle of tibia 856602323 S82.115D Health Concerns Section Related Observation LastModified by Organization Detai ls LastModified Time None Recorded Concern Status LastModified by Organization Details LastModified Time None Recorded Advance Directives Directive None Recorded Payers Insurance Date Sequence Insurance Name Policy Number Policy Corbin Covered Member ID Corbin Member ID Guarantor Name 09/09/2023 1 [employer] (MEDICARE REPLACEMENT/ ADVANTAGE - PPO) [id number] Rosina Servin [id number] Rosina Servin Notes Date Note Type Note Provider Name [...] fracture or dislocation. MISSAEL REED PA-C [address] [facility] [address], [place], [address], [place] [facility] 08/12/2023 09:33:15 08/19/2023 text/html Patient is [...] cartilage. She has follow-up scheduled in our [place] office. Unfortunately, she fell again on 08/15/2023 [...] no signs of fracture or dislocation. RHONDA MAHRE PA-C [address], [place], [address], [place] [facility] 08/30/2023 16:27:11 09/09/2023 text/html 68-year-old fema [...] directly onto the knee. MISSAEL REED PA-C [address] [facility] [address], [place], [address], [place] [facility] 09/09/2023 11:01:12 OBGyn Episode No OBEpisode recorded.
[2025-05-07 11:22] LABS: MANUAL DIFF FLAG NO
[2025-05-07 11:27] LABS: Basophils Percent Auto 0.6 % (0-2); Eosinophils Absolute Auto 0.1 X10*3/uL (0.0-0.4); Eosinophils Percent Auto 2.4 % (0-4); Hematocrit 40.1 % (37.0-47.0); Hemoglobin 14.2 g/dl (12.0-16.0); Imm Gran Abs Auto 0.01 X10*3/uL (0.00-0.03); Imm Gran Pct Auto 0.2 % (0.0-0.4); Lymphocytes Absolute Auto 1.4 X10*3/uL (1.2-4.9); Lymphocytes Percent Auto 29.7 % (20-40); Mean Corpuscular HGB Conc 35.4 g/dl (31.0-35.0); Mean Corpuscular Hemoglobin 31.9 pg (27.0-33.0); Mean Corpuscular Volume 90.1 fL (80.0-98.0); Mean Platelet Volume 10.4 fL (9.4-12.3); Monocytes Absolute Auto 0.3 X10*3/uL (0.1-1.2); Monocytes Percent Auto 7.3 % (2-11); Neutrophils Absolute Auto 2.8 x10*3/uL (2.0-8.3); Neutrophils Percent Auto 59.8 % (45-73); Platelet Count 151 X10*3/uL (160-400); Red Blood Count 4.45 X10*6/uL (4.20-5.50); Red Cell Distribution Width 12.9 % (11.0-16.0); White Blood Count 4.7 X10*3/uL (4.8-10.8)
[2025-05-07 12:00] LABS: Alanine Aminotransferase 15 U/L (0-31); Albumin Level 4.4 g/dL (3.5-5.0); Alkaline Phosphatase 70 U/L (39-117); Anion Gap 11 (12-20); Aspartate Amino Transferase 21 U/L (5-31); Bilirubin Total 0.8 mg/dL (0.0-1.0); Blood Urea Nitrogen 15 mg/dL (9-16); Calcium 9.2 mg/dL (8.4-10.2); Carbon Dioxide 26 mmol/L (22-29); Chloride 108 mmol/L (96-108); Cholesterol 231 mg/dL (<200); Estimated Glomerular Filt Rate > 60; Glucose Fasting 93 mg/dL (60-99); HDL Cholesterol 54 mg/dL (>40); LDL Cholesterol Calculated 161 mg/dL (<100); Potassium 4.4 mmol/L (3.3-5.1); Sodium 141 mmol/L (135-145); Total Protein 6.5 g/dL (6.5-8.0); Triglycerides 84 mg/dL (<150)
[2025-05-07 12:04] LABS: TSH reflex Free T4 1.65 uIU/mL (0.32-4.0); Vitamin D 25-OH Total 72.4 ng/mL (>30)
== END 2025-05-07 08:50 | disposition home or self-care (01) ==
LOC: HO.WFDLDS 08:49
PROVIDERS: Visit Provider Internal Medicine
DX: I10 Essential (primary) hypertension (principal); D68.00 Von Willebrand disease, unspecified; Z00.00 Encounter for general adult medical examination without abnormal findings; I48.91 Unspecified atrial fibrillation; E55.9 Vitamin D deficiency, unspecified
CPT/HCPCS: 36415; 80053; 80061; 82306; 84443; 85025

== ENCOUNTER 2025-05-11 08:32 | Outpatient (AMB) | payer MEDICARE, SELFPAY ==
--- OUTSIDE RECORDS SUMMARY | 2025-04-26 06:25 | XMS_ITS | Continuity of Care Document ---
Author Organization [facility] Address [address] [place] [address] Phone Care Team Providers Care Deicer Tester Name Role Phone Ivon Kimball PA-C Unavailable Unavailable Allergies, Adverse Reactions, Alerts Substance Reaction Status Criticality morphine Active No Information METOCLOPRAMIDE HCL Active No Inform ation Xkmxzgc-IKG-OmK Reductase Inhibitors Acti ve No Information latex [...] (Aircast) Walker Short Brace J OFFICE/OUTPATIENT VISIT, [facility] FOOT RIGHT-COMPLETE 3V Advance Directives Directive Yes [...] Providers Copied on Encounter OFFICE/OUTPA TIENT VISIT, [facility], [address] [place] [address], [id number], [place] tel:[phone] [facility] RT Ankle Pain (chief complaint) Pain Ankle/Foot RTNondisplaced fracture of cuboid bone of right foot, initial encounter for closed fracture Rehana Del Valle. [address] [place], [place], [id number] , [place]. tel: [phone] Referring Provider: Ivon Gage, [address] [place], [address] . tel:[phone] Family History Family Member Type Diagnosis Age At Onset No Information Payers Payer name Insurance type Covered green party ID Authoriza tion(s) No Information Social History [...]
[2025-05-11 08:35] VITALS: BP 122/74; PULSE 71; RESP 18; TEMP 36.7; O2SAT 97; BMI 25.7
--- NOTE | 2025-05-11 08:35 | A.OFFPC_ITS ---
Vital Signs 05/11/25 08:35 Height 5 ft 4 in Weight 150 lb BMI 25.7 BP 122/74 Blood Pressure Location Lt brachial Position Sitting Respiration 18 Pulse 71 Pulse Source Pulse Oximeter Temp 98.1 F Temp Source Oral Pulse Oximetry (%) 97 Oxygen Delivery Method Room Air Intake Visit Reasons: PE Intake Note: Pt is here today for PE. Allergies latex Allergy (Severe, Verified 05/11/25 08:41) Rash - latex gloves metoclopramide (From Reglan) Allergy (Severe, Verified 05/11/25 08:41) Anxiety morphine Allergy (Severe, Verified 05/11/25 08:41) Nausea and Vomiting niacin (Niaspan Extended-Release) Allergy (Severe, Verified 05/11/25 08:41) Swelling Neuxrse-QEZ-YzP Reductase Inhibitor (Nzctoic-Rig-Zhk Reductase Inhibitor) Allergy (Severe, Verified 05/11/25 08:41) Muscle cramps Medication List - Last Reconciled 05/11/25 by Brittany Dutton MD [algae omega PO ONCE] ascorbic acid (vitamin C) 1 g PO Q6H aspirin 81 mg PO DAILY azelaic acid 15% topical [calcium with magnesium PO] cholecalciferol (vitamin D3) 2,000 units PO DAILY [citrus bergamot PO] coenzyme Q10 (CoQ-10) PO metoprolol succinate ER 25 mg PO DAILY oregano oil 1,500 mg PO DAILY Saccharomyces boulardii (Daily Probiotic (S. boulardii)) PO vitamin B complex 1 cap PO DAILY Tobacco use date assessed: 05/11/25 Fall risk assessment: 1 Fall in past year Last assessed Fall Risk: 05/11/25 Dental Screening Dental Screen Date: 05/11/25 Did you have a dental visit in the last 12 months?: Yes Did you have a dental problem in the last 6 months where you did not have access to dental care?: No Was dental information given to patient?: Patient has dentist HPI PE HPI Details Pt presents for PE PFSH Medical History Vertigo Osteopenia Vitamin B 12 deficiency Tubular adenoma Von Willebrand disease Post-operative nausea and vomiting Annual physical exam Family history of breast cancer Mammogram normal Hyperlipidemia Normal Pap smear Afib Anxiety and depression Lyme disease, unspecified HTN (hypertension) Surgical History H/O cardiac radiofrequency ablation Hx of tonsillectomy Hx of colonoscopy Family History Father HTN (hypertension) Hx of CABG Diabetes mellitus Mother Colon cancer Myocardial infarction Maternal Aunt Breast cancer Sister Colon polyp Social History Housing: House Alcohol intake: current Alcohol intake frequency: holidays/special occasions only Patient Tobacco Use Status: Never used Tobacco e-Cigarette/Vaping Use: Never Used service: No Current occupational status: retired Current occupational exposures/hazards: No Cognitive needs: No Hearing needs: No Vision needs: Yes Questionnaire PHQ-9 Over the last 2 weeks, how often have you been bothered by any of the following problems? 1. Little interest or pleasure in doing things: not at all 2. Feeling down, depressed, or hopeless: not at all 3. Trouble falling or staying asleep, or sleeping too much: several days 4. Feeling tired or having little energy: not at all 5. Poor appetite or overeating: not at all 6. Feeling bad about yourself - or that you are a failure or have let yourself or your family down: not at all 7. Trouble concentrating on things, such as reading the newspaper or watching television: not at all 8. Moving or speaking so slowly that other people could have noticed. Or the opposite - being so fidgety or restless that you have been moving around a lot more than usual: not at all 9. Thoughts that you would be better off or of hurting yourself in some way: not at all Total score: 1 Depression Screening Interpretation: Negative Depression Screening Done: Yes 18298 - PHQ-9 Billing: Yes Source: Developed by Drs. Jerome Post, Meaghan Raines, Matthias Al and colleagues, with an educational nicole from [employer]. Thrive Questionnaire Date Thrive assessed: 05/11/25 I am a: Patient What is your living situation today?: I have a steady place to live Within the past 12 months, did the food you bought not last and you didn't have the money to get more?: Never true Within the past 12 months, did you worry whether your food would run out before you got money to buy more?: Never true Do you have trouble paying for medicines?: No Do you have trouble getting transportation to medical appointments?: No Do you have trouble paying your heating and electricity bill?: No Do you have trouble taking care of your child, family member or friend?: No Do you have trouble with day-to-day activities such as bathing, preparing meals, shopping, managing finances, etc.?: No Are you currently unemployed and looking for a job?: No Are you interested in more education?: No Please select the resources that you would like help with: None Currently or been in a relationship where the following occur: I choose not to answer THRIVE Score: 0 AUDIT C Alcohol Use Questionnaire (AUDIT-C) 1. How often do you have a drink containing alcohol?: Monthly or less 2. How many drinks containing alcohol do you have on a typical day when you are drinking?: 1 or 2 3. How often do you have six or more drinks on one occasion?: Never Total Score: 1 ASHLEE-7 AMB Questionnaire ASHLEE-7 Date ASHLEE - 7 assessed: 05/11/25 Feeling nervous, anxious, or on edge: 0 = Not at all Not being able to stop or control worryin = Not at all Worrying too much about different things: 0 = Not at all Trouble relaxin = Not at all Being so restless that it is hard to sit still: 0 = Not at all Becoming easily annoyed or irritable: 0 = Not at all Feeling afraid as if something awful might happen: 0 = Not at all Total ASHLEE-7 score (0-4 normal; 5-9 mild; 10-14 moderate; 15-21 severe): 0 Source: Developed by Drs. Jerome Post, Meaghan Raines, Matthias Al and colleagues, with an educational nicole from [employer]. ASHLEE-7 Assessment Billing ASHLEE-7 Assessment Tool: ASHLEE-7 Assessment 59339 Review of Systems Const All systems reviewed & are unremarkable except as noted in HPI and below Eyes Reports no additional complaints ENT Reports no additional complaints Card Reports no additional complaints Resp Reports no additional complaints GI Reports no additional complaints Reports no additional complaints Physical exam (Primary Care) Vital Signs: Last Vital Signs Temp 98.1 F 07/01/25 08:35 Pulse 71 05/11/25 08:35 Resp 18 05/11/25 08:35 BP 122/74 05/11/25 08:35 Pulse Ox 97 05/11/25 08:35 Oxygen Delivery Method Room Air 05/11/25 08:35 BMI result Body Mass Index 25.7 Tobacco/Smoking Status: Tobacco use Status Tobacco use date assessed 05/11/25 05/11/25 08:44 Patient Tobacco Use Status Never used Tobacco 05/11/25 08:44 e-Cigarette/Vaping Use Never Used 05/11/25 08:44 PHQ-9: PHQ-9 Score PHQ-9: Total score 1 05/11/25 08:59 Depression Screening Interpretation: Negative Thrive Assessment: Date of Thrive Assessment Date Thrive assessed 05/11/25 05/11/25 08:44 Currently or been in a relationship where the following occur: I choose not to answer Const General: no acute distress HENMT Head: Yes normal to inspection Ears: TM's normal bilaterally Mouth: Normal oral and palatal mucosa present Throat: Yes posterior oropharynx normal Eyes General: appearance normal, both eyes and all related structures Neck Neck: Yes no lymphadenopathy and Yes supple Resp Effort & Inspection: normal respiratory effort Auscultation: clear to auscultation bilaterally Cardio Rhythm: regular rhythm Heart sounds: S1 normal heart sound present and S2 normal heart sound present GI Inspection: Yes normal to inspection Palpation (GI): Soft to palpation Percussion: Yes normal to percussion Auscultation: normal bowel sounds Coding Level of Care Code Est Pt Prev Care >65y(88332) Diagnoses HTN (hypertension) I10 Afib I48.91 Hyperlipidemia E78.5 Annual physical exam Z00.00 Additional Codes ASHLEE-7 Assessment Billing - ASHLEE-7 Assessment Tool: ASHLEE-7 Assessment 57755 ([id number]) PHQ-9 - 34290 - PHQ-9 Billing: Yes ([id number]) Assessment & Plan Assessment & Plan (1) HTN (hypertension): Code(s): I10 - Essential (primary) hypertension Category: Medical Plan: Continue metoprolol (2) Afib: Comment: s/p ablation 2009, f/u cardiology at [facility], on 81 mg of ASA Code(s): I48.91 - Unspecified atrial fibrillation Category: Medical Plan: Continue metoprolol follow-up with Cardiology (3) Hyperlipidemia: Comment: intolerant to multiple statins including Lipitor and Crestor, brain CT plaque bilateral carotid bifurcation no stenosis on the right mild left ICA 10%, old left lacunar 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 Panel Fast 1 Year E53.8 - Deficiency of other specified B group vitamins, E55.9 - Vitamin D deficiency, unspecified, E78.5 - Hyperlipidemia, unspecified, I10 - Essential (primary) hypertension, I48.91 - Unspecified atrial fibrillation Complete Blood Count Auto Diff 1 Year E53.8 - Deficiency of other specified B group vitamins, E55.9 - Vitamin D deficiency, unspecified, E78.5 - Hyperlipidemia, unspecified, I10 - Essential (primary) hypertension, I48.91 - Unspecified atrial fibrillation Lipid Panel 1 Year E53.8 - Deficiency of other specified B group vitamins, E55.9 - Vitamin D deficiency, unspecified, E78.5 - Hyperlipidemia, unspecified, I10 - Essential (primary) hypertension, I48.91 - Unspecified atrial fibrillation Vitamin D 25-OH Total 1 Year E53.8 - Deficiency of other specified B group vitamins, E55.9 - Vitamin D deficiency, unspecified, E78.5 - Hyperlipidemia, unspecified, I10 - Essential (primary) hypertension, I48.91 - Unspecified atrial fibrillation
--- OUTSIDE RECORDS SUMMARY | 2025-05-11 08:41 | XMS_ITS | Clinical Summary ---
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 Name Role Phone Brittany Dutton MD Primary Care Provider [phone] Social History Tobacco Use Types Packs/Day Years Used Date Smoking Tobacco: Never Assessed Comments Unknown Sex and Gender Information Value Date Recorded Sex Assigned at Not on file Legal Sex Female 12:50 PM EST Gender Identity Not on file Sexual Orientation Not on file Plan of Treatment Health Maintenance Due Date Last Done Comments Breast Cancer Screening 1955 Colorectal Cancer Screening: Annual FOBT 2002 Colorectal Cancer Screening: Colonoscopy 2002 Colorectal Cancer Screening: Sigmoidoscopy 2002 Pneumococcal Vaccine: 50+ Ye ars (1 of 1 - PCV) 2003 Influenza Vaccine (Season Ended) 2025 Hepatitis B Vaccine Aged Out No longe r eligible based on patient's age to complete this topic Care Teams Fermenter Helper Relationship Specialty Start Date End Date Brittany Dutton MD [address] [place] [address] PCP - General Internal Medicine 12/25/21
--- OUTSIDE RECORDS SUMMARY | 2025-05-11 08:41 | XMS_ITS ---
Author Name [facility] Organization Unknown History of Medication Use Medication Directions Dispensed Refills Start Date End Date Stat us doxycycline hyclate 100 mg tablet active famotidine 20 mg tablet active Allergies Allergen Reaction Severity Comment Documented Date Source Statu s LATEX ENS_AONECT MORPHINE ENS_AONECT NIASPAN EXTENDED-RELEASE ENS_AON ECT REGLAN ENS_AONECT VMIGTGP-UOS-RDS REDUCTASE INHIBITORS ENS_AONECT Problems Problem Status Onset Date Problem Type Date of Resoluti on Source Fracture of condyle of tibia active 2023-08-19 ProblemAct ENS_AONECT Closed fracture of left tibial plateau active 2023-08-19 ProblemAct ENS_AONECT Encounters Encounter Type Encounter Reason Primary Diagnosis Location Date Ambulatory [facility] [place] 09/09/2023 Ambulatory [facility] [place] 09/05/2023 Ambulatory [facility] [place] 09/02/2023 Ambulatory [facility] [place] 08/19/2023 Ambulatory [facility] [place] 08/19/2023 Ambulatory [facility] [place] 08/19/2023 Ambulatory [facility] [place] 08/12/2023 Ambulatory [facility] [place] 08/12/2023 Ambulatory [facility] [place] 08/12/2023 Ambulatory [facility] [place] 08/12/2023 Ambulatory [facility] [place] 08/08/2023 Ambulatory [facility] [place] 08/08/2023 Ambulatory [facility] [place] 08/08/2023 Ambulatory [facility] [place] 08/07/2023
--- OUTSIDE RECORDS SUMMARY | 2025-05-11 08:41 | XMS_ITS | Data Portability ---
Author Organization [place] [facility] [place] Address [address] [place] [address] Care Team Providers Care Circular Gang Saw Operator Name Role Phone RADHA KAUR Primary Care [...] will follow-up as previously scheduled in our [place] office, sooner for any complications. 08/12/2023 68-year-old female with left knee pain. History examination and x-rays are suggestive of contusion with likely hemarthrosis in light of her von Willebrand's. The persistence of her pain and positive Vincent testing are suggestive of possible internal derangement. Recommendations are for MRI of left knee to evaluate for occult fracture versus internal derangement. [email or web address] Not available 08/30/2023 16:26:09 09/09/2023 09/09/2023 68-year-old [...] knee, 4 or more view 2022 023 [place], [address], [place], [address], 10:33:20 MRI, knee, w/o contrast - MRI: L knee without contrast. Diagnosis: Joint pain refractory to conservativ e treatment. Worsening pain and disability. Evaluate for internal derangement , AVN, or occult fracture and characteriz e degree of degenerativ e changes. 2022 023 arron n28 [facility], [address] [facility], [place], [address], 12:24:54 Medication Orders None recorded. Patient TargetsNo targets recorded. Patient Instructions Encounter Date Encounter Id Patient Instructions Last Modified By Organization Details Last Modified Time 08/12/2023 [id number] Outside x-rays obtained during her ER visit are reviewed to show no evidence for fracture or dislocation. Not available 08/12/2023 09:30:43 Reason for Referral None Reported. Results Created Date Observation Date Name Description Value Unit Range Abnormal Flag Note LastModifiedBy Organization Detail LastModifiedTime 08/13/20 23 08/13/2023 MRI, knee, w/o contr ast No observ ation record ed. [facility] [address], [place], [address], 08/15/2023 12:03:23 08/20/20 XR, knee, 4 or more view No observ ation record ed. [email or web address] [facility] [address], [place], [address], 08/20/2023 10:33:20 Result Notes None recorded. Problems Name Problem SNOMED Code Status Onset Date Resolution Date Notes Provider Name and Address Organization Details Recorded Time Closed fracture of left tibial plateau 197289134027585 07 Active 2022 RHONDA MAHER PA-C [address], [place], [address], [place] [facility], [facility] 3 16:35:16 Fracture of condyle of tibia 216879054 Active 2022 RHONDA MAHER PA-C [address], [place], [address], [place] [facility], [facility] 3 16:37:12 Fracture of condyle of tibia 576437090 Active 2022 RHONDA MAHER PA-C [address], [facility], [address], [place] [facility], [facility] 3 16:37:19 Problem Notes None recorded. Procedures Surgical History Date Name Laterality Status Provider Name and Address Organization Details Recorded Time cardiac ablation using fluoroscopy guidance completed Krishan Smith [place] [facility] 08/12/2023 09:11:32 ligation of fallopian tube completed Krishan Smith [place] [facility] 08/12/2023 09:11:52 tonsillectomy completed Krishan Smith [place] [facility] 08/12/2023 09:11:59 Imaging Results None recorded. Procedure Notes None recorded. Medical Equipment None Reported. Allergies Allergen ID Allergen Name Allergen Category Reaction Reaction Severity Criticality Documentation Date Start Date Code Code System Note Provider Name and Address Organization Details Recorded Time 8588 latex environme nt,medica tion Not available Not available Not available 08/12/2023 55880 91 RxNorm Krishan ngo, [place] [facility] 09:08:53 8589 morphine medicatio n Not available Not available Not available 08/12/2023 7052 RxNorm Krishan ngo, [facility], P 3 09:09:00 8590 Product containin g 3-hydroxy -3-methyl glutaryl- coenzyme A reductase inhibitor (product) medicatio n Not available Not available Not available 08/12/2023 71745 009 SNOMED Krishan Smith [facility], [facility], P 3 09:09:18 8591 Niaspan medicatio n Not available Not available Not available 08/12/2023 55425 6 RxNorm Krishan ngo, [facility], P 3 09:09:27 8592 Reglan medicatio n Not available Not available Not available 08/12/2023 9230 RxNorm Krishan ngo, [facility], P 3 09:09:33 Medications Name Sig Start [...] Updated DateTime 08/12/2023 162.56 cm 27.8 kg/m2 64615.96 josé miguel Smith [facility], P 08/12/2023 09:09:57 Date Recorded Body height Body mass index (BMI) Body weight Provider Name and Address Organization Details Last Updated DateTime 08/19/2023 162.56 cm 27.1 kg/m2 81178.59 josé miguel Adria Meng [place] [facility], [facility] 08/19/2023 11:29:06 Social History None recorded. Functional Status Question Answer Note LastModified by Organizat ion Details LastModified Time How many times per week do you consume alcohol? 1-2 times per week [email or web address] Information not available 08/12/2023 Do you use any illicit or recreational drugs? No [email or web address] Information not available 08/12/2023 Do you or have you ever used any other forms of tobacco or nicotine? No [email or web address] Information not available 08/12/2023 What is your level of alcohol consumption? Occasional [email or web address] Information not available 08/12/2023 Mental Status None recorded. Family History Relationship Description Onset Age of this Age Resolved Age Notes LastModified by Organization Details LastModified Time Mother Arthritis [email or web address] Not avai cliff 08/12/2023 09:12:09 Mother Family history of malignant neoplasm [email or web address] Not available 12/2022 09:12:21 Mother Heart disease [email or web address] Not available 12/2022 09:12:30 Sister Family history of malignant neoplasm [email or web address] Not available 12/2022 09:12:21 Father Heart disease [email or web address] Not available 12/2022 09:12:39 Father Diabetes mellitus [email or web address] Not available 12/2022 09:12:50 Father Hyperlipidem ia Not available 12/2022 09:12:57 Father Hypertensive disorder [email or web address] Not available 12/2022 09:13:06 Medical History Condition Response Hypertension Y Gynecological HistoryNo gynecological history recorded. Obstetrics History GPAL:G 0 P 0 0 0 0 Past Encounters Encounter ID Performer Location Encounter Start Date Encounter Closed Date Diagnosis/Indication Diagnosis SNOMED-CT Code Diagnosis ICD10 Code Diagnosis Note [id number] PASHA LEZAMAanil [address] [facility] [address] [place] [address] 08/12/2023 08:55:26 08/12/2023 09:43:37 Pain of left knee joint 3156347825 37815 M25.562 [id number] PASHA ADAMS [facility] [address] [place] [address] 08/19/2023 10:59:45 08/19/2023 12:09:16 Pain of left knee joint 7727949179 43315 M25.562 Fracture o f condyle of tibia 119745341 S82.115D Nondisplac ed subchondra l fracture lateral [id number] PASHA LEZAMA [facility] [address] [facility] [address] [place] [address] 09/09/2023 10:34:15 09/09/2023 10:53:43 Fracture of condyle of tibia 107063043 S82.115D Health Concerns Section Related Observation LastModified by Organization Detai ls LastModified Time None Recorded Concern Status LastModified by Organization Details LastModified Time None Recorded Advance Directives Directive None Recorded Payers Insurance Date Sequence Insurance Name Policy Number Policy Corbin Covered Member ID Corbin Member ID Guarantor Name 09/09/2023 1 [employer] (MEDICARE REPLACEMENT/ ADVANTAGE - PPO) [id number] Rosina Servin [id number] Rosina Servin Notes Date Note Type Note [...] fracture or dislocation. MISSAEL REED PA-C [address] [facility] [address], [place], [address], [place] [facility] 08/12/2023 09:33:15 08/19/2023 text/html Patient is [...] cartilage. She has follow-up scheduled in our [place] office. Unfortunately, she fell again on 08/15/2023 [...] RHONDA MAHER PA-C [address], [place], [address], [place] [facility], [facility] 08/30/2023 16:27:11 09/09/2023 text/html 68-year-old fema [...] onto the knee. MISSAEL REED PA-C [address] [facility] [address], [place], [address], [place] [facility], [facility] 09/09/2023 11:01:12 OBGyn Episode No OBEpisode recorded.
== END 2025-05-11 09:07 | disposition home or self-care (01) ==
LOC: HO.HMCC 08:33
PROVIDERS: PCP Internal Medicine; Visit Provider Internal Medicine
DX: I10 Essential (primary) hypertension (principal); I48.91 Unspecified atrial fibrillation; E78.5 Hyperlipidemia, unspecified; Z00.00 Encounter for general adult medical examination without abnormal findings

== ENCOUNTER → 2025-05-11 08:32 | Outpatient (BNVA) | payer MEDICARE, SELFPAY | PROVIDERS: PCP Internal Medicine; Visit Provider Internal Medicine | DX: Z00.00 Encounter for general adult medical examination without abnormal findings (principal); I10 Essential (primary) hypertension; I48.91 Unspecified atrial fibrillation; E78.5 Hyperlipidemia, unspecified | CPT/HCPCS: 96127; 99397 ==

== ENCOUNTER 2025-06-07 09:06 | Outpatient (REF) | payer MEDICARE, SELFPAY ==
--- OUTSIDE RECORDS SUMMARY | 2025-04-26 06:25 | XMS_ITS | Continuity of Care Document ---
Author Organization [facility] Address [address] [place] [address] Phone Care Team Providers Care Medical Resident Name Role Phone Ivon Kimball PA-C Unavailable Unavailable Allergies, Adverse Reactions, Alerts Substance Reaction Status Criticality morphine Active No Information METOCLOPRAMIDE HCL Active No Inform ation Klbymxk-HJK-FuD Reductase Inhibitors Acti ve No Information latex Active No Information Medications Medication Instructions Dosage Effective Dates (start - stop) Status Comments doxycycline hyclate 100 mg tablet - Active amoxicillin 500 mg capsule - Active metoprolol succinate ER 25 mg tablet,extended release 24 hr TAKE 1 TABLET DAILY - Active azithromycin 250 mg tablet - Active Procedures Procedure Date Pneumatic (Aircast) Walker Short Brace J OFFICE/OUTPATIENT VISIT, [facility] FOOT RIGHT-COMPLETE 3V Advance Directives Directive Yes [...] Location Reason(s) For Visit Diagnoses Date Provider Providers Copied on Encounter OFFICE/OUTPA TIENT VISIT, [facility], [address] [place] [address], [id number], [place] tel:[phone] [facility] RT Ankle Pain (chief complaint) Pain Ankle/Foot RTNondisplaced fracture of cuboid bone of right foot, initial encounter for closed fracture Rehana Del Valle. [address] [place], [place], [id number] , [place]. tel: [phone] Referring Provider: Ivon Gage, [address] [place], [address] . tel:[phone] Family History Family Member Type Diagnosis Age At Onset No Information Payers Payer name Insurance type Covered democrat ID Authoriza tion(s) No Information Social History Type Description Quantity Date Captured Comments Alcohol Use Details Unknown Caffeine Use Details Unknown Tobacco Use Status Current non-smoker Smoking Status Never smoker Non-Smoking Tobacco Use Details : No Details Available : No Details Available Sex Female Vital Signs Date / Time: Height Weight BMI Pulse Rate Blood Pressure Temperature Respiratory Rate Body Surface Area Head Circumference Head Circ. Percentile Wt./Maurice. Percentile BMI percentile Pulse Ox Inhaled Ox 11:54 AM 64.00 in 70.760 kg (156.00 lbs) 26.7 8 kg/m eter (2) Chief Complaint And Reason For Visit From encounter dated '04/26/2025 10:25'. RT Ankle Pain (chief complaint) Reason For Referral Reason For Referral No Information History Of Present Illness Encounter Date Complaint History Of Prese nt Illness No Information Functional Status Date Functional Assessmen t No Information Instructions Date Instruction Additional Infor mation No Information Assessments Type Assessment Date assessment Pain Ankle/Foot RT assessment Nondisplaced fractur e of cuboid bone of right foot, initial encounter for closed fracture Patient Care Teams Name Effective Dates (start - stop) Status Members No Information
--- OUTSIDE RECORDS SUMMARY | 2025-06-07 09:41 | XMS_ITS | Clinical Summary ---
Author Organization [facility] Facility Address [address] [address] Care Team Providers Care Braille Translator Name Role Phone Brittany Dutton MD Primary Care Provider [phone] Social History Tobacco Use Types Packs/Day Years [...] of 1 - PCV) 2003 Influenza Vaccine (#1) 2025 Hepatitis B Vaccine Aged Out No longe r eligible based on patient's age to complete this topic Care Teams Braille Translator Relationship Specialty Start Date End Date Brittany Dutton MD [address] [place] [address] PCP - General Internal Medicine 12/25/21
--- OUTSIDE RECORDS SUMMARY | 2025-06-07 09:41 | XMS_ITS | Data Portability ---
Author Organization [place] [facility] [place] Address [address] [place] [address] Care Team Providers Care Harness Brusher Name Role Phone RADHA KAUR Primary Care [...] will follow-up as previously scheduled in our [place] office, sooner for any complications. 08/12/2023 68-year-old female with left knee pain. History examination and x-rays are suggestive of contusion with likely hemarthrosis in light of her von Willebrand's. The persistence of her pain and positive Vincent testing are suggestive of possible internal derangement. Recommendations are for MRI of left knee to evaluate for occult fracture versus internal derangement. [email or web address] Not available 08/30/2023 16:26:09 09/09/2023 09/09/2023 68-year-old [...] knee, 4 or more view 2022 023 [place] [facility], [address], [place], [address], 10:33:20 MRI, knee, w/o contrast - MRI: L knee without contrast. Diagnosis: Joint pain refractory to conservativ e treatment. Worsening pain and disability. Evaluate for internal derangement , AVN, or occult fracture and characteriz e degree of degenerativ e changes. 2022 023 arron n28 [facility], [address] [facility], [place], [address], 12:24:54 Medication Orders None recorded. Patient TargetsNo targets recorded. Patient Instructions Encounter Date Encounter Id Patient Instructions Last Modified By Organization Details Last Modified Time 08/12/2023 [id number] Outside x-rays obtained during her ER visit are reviewed to show no evidence for fracture or dislocation. Not available 08/12/2023 09:30:43 Reason for Referral None Reported. Results Created Date Observation Date Name Description Value Unit Range Abnormal Flag Note LastModifiedBy Organization Detail LastModifiedTime 08/13/20 23 08/13/2023 MRI, knee, w/o contr ast No observ ation record ed. [facility] [address], [place], [address], 08/15/2023 12:03:23 08/20/20 XR, knee, 4 or more view No observ ation record ed. [email or web address] [facility] [address], [place], [address], 08/20/2023 10:33:20 Result Notes None recorded. Problems Name Problem SNOMED Code Status Onset Date Resolution Date Notes Provider Name and Address Organization Details Recorded Time Closed fracture of left tibial plateau 984220123061144 07 Active 2022 RHONDA MAHER PA-C [address], [place], [address], [place] [facility], P 3 16:35:16 Fracture of condyle of tibia 736721478 Active 2022 RHONDA MAHER PA-C [address], [place], [address], [place] [facility], P 3 16:37:12 Fracture of condyle of tibia 757966321 Active 2022 RHONDA MAHER PA-C [address], [place], [address], [place] [facility], P 3 16:37:19 Problem Notes None recorded. Procedures Surgical History Date Name Laterality Status Provider Name and Address Organization Details Recorded Time cardiac ablation using fluoroscopy guidance completed Krishan Smith [place] [facility], [facility] 08/12/2023 09:11:32 ligation of fallopian tube completed Krishan Smith [place] [facility], P 08/12/2023 09:11:52 tonsillectomy completed Krishan Smith [place] [facility], P 08/12/2023 09:11:59 Imaging Results None recorded. Procedure Notes None recorded. Medical Equipment None Reported. Allergies Allergen ID Allergen Name Allergen Category Reaction Reaction Severity Criticality Documentation Date Start Date Code Code System Note Provider Name and Address Organization Details Recorded Time 8588 latex environme nt,medica tion Not available Not available Not available 08/12/2023 89548 91 RxNorm Krishan ngo, [place] [facility] 09:08:53 8589 morphine medicatio n Not available Not available Not available 08/12/2023 7052 RxNorm Krishan ngo, [facility], P 3 09:09:00 8590 Product containin g 3-hydroxy -3-methyl glutaryl- coenzyme A reductase inhibitor (product) medicatio n Not available Not available Not available 08/12/2023 72401 009 SNOMED Krishan Smith [facility], [facility], P 3 09:09:18 8591 Niaspan medicatio n Not available Not available Not available 08/12/2023 14879 6 RxNorm Krishan ngo, [facility], P 3 09:09:27 8592 Reglan medicatio n Not available Not available Not available 08/12/2023 9230 RxNorm Krishan ngo, [facility], P 3 09:09:33 Medications Name Sig [...] Updated DateTime 08/12/2023 162.56 cm 27.8 kg/m2 95601.96 josé miguel [facility], P 08/12/2023 09:09:57 Date Recorded Body height Body mass index (BMI) Body weight Provider Name and Address Organization Details Last Updated DateTime 08/19/2023 162.56 cm 27.1 kg/m2 79978.59 josé miguel Adria Meng [place] [facility], P 08/19/2023 11:29:06 Social History None recorded. Functional Status Question Answer Note LastModified by Organizat ion Details LastModified Time How many times per week do you consume alcohol? 1-2 times per week [email or web address] Information not available 08/12/2023 Do you use any illicit or recreational drugs? No [email or web address] Information not available 08/12/2023 Do you or have you ever used any other forms of tobacco or nicotine? No [email or web address] Information not available 08/12/2023 What is your level of alcohol consumption? Occasional [email or web address] Information not available 08/12/2023 Mental Status None recorded. Family History Relationship Description Onset Age of this Age Resolved Age Notes LastModified by Organization Details LastModified Time Mother Arthritis [email or web address] Not avai cliff 08/12/2023 09:12:09 Mother Family history of malignant neoplasm [id number] Not available 12/2022 09:12:21 Mother Heart disease [email or web address] Not available 12/2022 09:12:30 Sister Family history of malignant neoplasm Not available 12/2022 09:12:21 Father Heart disease [email or web address] Not available 12/2022 09:12:39 Father Diabetes mellitus [email or web address] Not available 12/2022 09:12:50 Father Hyperlipidem ia Not available 12/2022 09:12:57 Father Hypertensive disorder [email or web address] Not available 12/2022 09:13:06 Medical History Condition Response Hypertension Y Gynecological HistoryNo gynecological history recorded. Obstetrics History GPAL:G 0 P 0 0 0 0 Past Encounters Encounter ID Performer Location Encounter Start Date Encounter Closed Date Diagnosis/Indication Diagnosis SNOMED-CT Code Diagnosis ICD10 Code Diagnosis Note [id number] PASHA LEZAMAanil [address] [facility] [address] [place] [address] 08/12/2023 08:55:26 08/12/2023 09:43:37 Pain of left knee joint [id number] 31713 M25.562 [id number] PASHA ADAMS [facility] [address] [place] [address] 08/19/2023 10:59:45 08/19/2023 12:09:16 Pain of left knee joint 9054770166 09006 M25.562 Fracture o f condyle of tibia 839227093 S82.115D Nondisplac ed subchondra l fracture lateral [id number] PASHA LEZAMA [facility] [address] [facility] [address] [facility] [address] 09/09/2023 10:34:15 09/09/2023 10:53:43 Fracture of condyle of tibia 859248706 S82.115D Health Concerns Section Related Observation LastModified by Organization Detai ls LastModified Time None Recorded Concern Status LastModified by Organization Details LastModified Time None Recorded Advance Directives Directive None Recorded Payers Insurance Date Sequence Insurance Name Policy Number Policy Corbin Covered Member ID Corbin Member ID Guarantor Name 09/09/2023 1 [employer] (MEDICARE REPLACEMENT/ ADVANTAGE - PPO) [id number] Rosina Clemens [place] [id number] Rosina Carrollon OBGyn Episode No OBEpisode recorded.
== END 2025-06-07 09:07 | disposition home or self-care (01) ==
LOC: HO.MAMMO 09:06
PROVIDERS: PCP Internal Medicine; Visit Provider Internal Medicine
DX: Z12.31 Encounter for screening mammogram for malignant neoplasm of breast (principal)
CPT/HCPCS: 77063; 77067

== ENCOUNTER → 2025-06-07 09:15 | Outpatient (BNV) | payer MEDICARE, SELFPAY | PROVIDERS: PCP Internal Medicine; Visit Provider Internal Medicine | DX: Z12.31 Encounter for screening mammogram for malignant neoplasm of breast (principal) | CPT/HCPCS: 77063; 77067 ==

== ENCOUNTER 2025-07-05 14:26 | Outpatient (AMB) | payer MEDICARE, SELFPAY ==
--- OUTSIDE RECORDS SUMMARY | 2025-04-26 06:25 | XMS_ITS | Continuity of Care Document ---
Author Organization [facility] Address [address] [place] [address] Phone Care Team Providers Care Dye Range Operator Cloth Name Role Phone Ivon Kimball PA-C Unavailable Unavailable Allergies, Adverse Reactions, Alerts Substance Reaction Status Criticality morphine Active No Information METOCLOPRAMIDE HCL Active No Inform ation Ywkybhj-KUZ-FmQ Reductase Inhibitors Acti ve No Information latex [...] (Aircast) Walker Short Brace J OFFICE/OUTPATIENT VISIT, [facility] FOOT RIGHT-COMPLETE 3V Advance Directives Directive [...] Providers Copied on Encounter OFFICE/OUTPA TIENT VISIT, [facility], [address] [place] [address], [id number], [place] tel:[phone] [facility] RT Ankle Pain (chief complaint) Pain Ankle/Foot RTNondisplaced fracture of cuboid bone of right foot, initial encounter for closed fracture Rehana Del Valle. [address] [place], [place], [id number] , [place]. tel: [phone] Referring Provider: Ivon Gage, [address] [place], [address] . tel:[phone] Family History Family Member Type Diagnosis Age [...]
[2025-07-05 14:31] VITALS: BP 110/64; PULSE 66; BMI 26.6
--- NOTE | 2025-07-05 14:31 | MHC.OFFVIS ---
Vital Signs 07/05/25 14:31 Height 5 ft 4 in Weight 154 lb 12.232 oz BMI 26.6 BP 110/64 Blood Pressure Location Lt brachial Position Sitting Pulse 66 Pulse Source Pulse Oximeter Intake Visit Reasons: 2 mth f/up Intake Note: 2 mth f/up Licensing And Registration Director Required: No Accompanied by: Significant Other Allergies latex Allergy (Severe, Verified 05/11/25 08:41) Rash - latex gloves metoclopramide (From Reglan) Allergy (Severe, Verified 05/11/25 08:41) Anxiety morphine Allergy (Severe, Verified 05/11/25 08:41) Nausea and Vomiting niacin (Niaspan Extended-Release) Allergy (Severe, Verified 05/11/25 08:41) Swelling Ieosbaf-ERN-OeD Reductase Inhibitor (Yfnvxwk-Mrc-Mxc Reductase Inhibitor) Allergy (Severe, Verified 05/11/25 08:41) Muscle cramps Medication List - Last Reconciled 07/05/25 by Michael Lara MD [algae omega PO ONCE] ascorbic acid (vitamin C) 1 g PO Q6H aspirin 81 mg PO DAILY azelaic acid 15% topical [calcium with magnesium PO] cholecalciferol (vitamin D3) 2,000 units PO DAILY [citrus bergamot PO] coenzyme Q10 (CoQ-10) PO metoprolol succinate ER 25 mg PO DAILY oregano oil 1,500 mg PO DAILY Saccharomyces boulardii (Daily Probiotic (S. boulardii)) PO vitamin B complex 1 cap PO DAILY HPI Comments Details: 70-year-old female here for follow-up. She has background history of palpitations and atrial fibrillation. She underwent ablation in the past. She also has von willebrand disease and previous bleeding. Previously echocardiography showed normal left ventricular function. She also had cardiac event monitor which did not show any arrhythmia. We discussed about starting anticoagulation but given her history of von Willebrand's disease she decided not to take it and has been taking aspirin. She returns for follow-up. She has had episode atrial fibrillation which she ordered with her at watch. Reviewing this she had shown runs of atrial fibrillation with conversion to sinus rhythm to strips but other strips were he has low at we will fibrillation. She saying that she had palpable is up to 1 hour at a time had 2 episodes. She has been tolerating baby aspirin. 07/05/2025: Here with her . She had breakthrough atrial fibrillation episodes secondary to alcohol use. She previously noticed that if she eats pizza and certain types of cheese she will get AFib episodes. She also had clear trigger due to wine drinking. She is saying she has cut back significantly and has been avoiding foods. She also has noticed that if she takes short-acting metoprolol she would not get atrial fibrillation after consuming cheese or drinking alcohol. Last time we discussed in detail about anticoagulation strategies in her due to von Willebrand disease. She is currently taking baby aspirin for long time. More recently she has been getting breakthrough atrial fibrillation and was not getting any frequent episodes previously. [facility] Medical History Vertigo Osteopenia Vitamin B 12 deficiency Tubular adenoma Von Willebrand disease Post-operative nausea and vomiting Annual physical exam Family history of breast cancer Mammogram normal Hyperlipidemia Normal Pap smear Afib Anxiety and depression Lyme disease, unspecified HTN (hypertension) Surgical History H/O cardiac radiofrequency ablation Hx of tonsillectomy Hx of colonoscopy Family History Father HTN (hypertension) Hx of CABG Diabetes mellitus Mother Colon cancer Myocardial infarction Maternal Aunt Breast cancer Sister Colon polyp Social History Housing: House Alcohol intake: current Alcohol intake frequency: holidays/special occasions only Patient Tobacco Use Status: Never used Tobacco e-Cigarette/Vaping Use: Never Used service: No Current occupational status: retired Current occupational exposures/hazards: No Cognitive needs: No Hearing needs: No Vision needs: Yes Review of Systems Const Denies chills, Denies fatigue, Denies fever(s), Denies frequent falls, Denies weakness, Denies weight gain and Denies weight loss ENT Denies dizziness Card Denies chest pain, Denies leg edema, Denies lightheadedness, Denies palpitations, Denies dyspnea and Denies dyspnea on exertion Resp Denies cough, Denies dyspnea and Denies dyspnea on exertion GI Denies hematochezia Musc Denies abnormal gait, Denies muscle weakness, Denies numbness, Denies radiating pain into limb and Denies tingling Neuro Denies abnormal gait, Denies dizziness, Denies frequent falls, Denies numbness, Denies tingling and Denies weakness Endo Denies fatigue and Denies palpitations Physical Exam Vital Signs: Last Vital Signs Pulse 66 07/05/25 14:31 BP 110/64 07/05/25 14:31 BMI result Body Mass Index 26.6 GENERAL APPEARANCE: in no acute distress, pleasant. NECK: no carotid bruit, no jugular venous distention. SKIN: no suspicious lesions, warm and dry. HEART: no murmurs, regular rate and rhythm. LUNGS: clear to auscultation bilaterally. ABDOMEN: soft, nontender. EXTREMITIES: no edema. PERIPHERAL PULSES: equal. NEUROLOGIC: No gross deficits, AAO X 3 Assessment & Plan Assessment & Plan (1) Afib: Comment: s/p ablation 2009, f/u cardiology at [facility] [place] [place], on 81 mg of ASA Code(s): I48.91 - Unspecified atrial fibrillation Category: Medical (2) Von Willebrand disease: Code(s): D68.0 - Von Willebrand disease Category: Medical Plan 70-year-old lady here for follow-up. She has background history of atrial fibrillation underwent ablation in the past twice. More recently she started having episodes of atrial fibrillation triggered by cheese and alcohol. She has watched her diet and has cut back on alcohol significantly. She has recorded are rhythm with [employer] watch and clearly she had episodes of atrial fibrillation. She does not have significant tachycardia with atrial fibrillation. She is symptomatic with him though. She has known Von Willebrand's disease. She did not have any major bleed induced sensitivity. She is taking baby aspirin. We discussed about management of atrial fibrillation in detail. Her had multiple questions including utility of anticoagulation and he had some research data that he has collected from 1 clinical trial about Watchman. We discussed that Rosina is getting frequent episodes of atrial fibrillation in the recent months. These are short episodes reportedly. She is currently not on anticoagulation and starting Eliquis is a possibility although there is concern for bleeding which the patient and on has been feel strongly not to start currently. The asked about doing ablation again and I have explained to them that this is a possibility. I am referring her for further assessment with electrophysiology. We discussed about Watchman device as a possibility but does spent brought some data that Watchman device is contraindicated in Von Willebrand disease. I have explained to him that I will do my own research about it and we will rediscuss this. So far but do not appear to be open to the idea of any device based anti stroke strategy. Long discussion and all the questions were answered. I am referring her for EP evaluation for potential ablation. I have explained to the patient that even after ablation she will need anticoagulation for few months and they may proposed that she stays on long-term anticoagulation. Thank you for allowing me to participate in the care of your patient. Please feel free to contact me if you have any questions. Orders: Referrals Cardiac Electrophysiology Referral I48.91 - Unspecified atrial fibrillation Medications: Changed From metoprolol succinate ER 25 mg PO DAILY 90 tabs 3RF I48.91 - Unspecified atrial fibrillation To metoprolol succinate ER 25 mg PO BID 120 tabs 3RF I48.91 - Unspecified atrial fibrillation Coding Level of Care Code Est Pt Level 5 (10133) Diagnoses Afib I48.91 Von Willebrand disease D68.0
--- OUTSIDE RECORDS SUMMARY | 2025-07-05 16:09 | XMS_ITS | Clinical Summary ---
Author Organization [facility] Facility Address [address] [address] Care Team Providers Care Neurology Manager Name Role Phone Brittany Dutton MD Primary Care Provider [phone] Social History Tobacco Use Types Packs/Day Years [...] age to complete this topic Care Teams Neurology Manager Relationship Specialty Start Date End Date Brittany Dutton MD [address] [place] [address] PCP - General Internal Medicine 12/25/21
== END 2025-07-05 15:23 | disposition home or self-care (01) ==
LOC: HO.HCS 14:29
PROVIDERS: PCP Internal Medicine; Visit Provider Internal Medicine Cardiovascular Disease
DX: I48.91 Unspecified atrial fibrillation (principal); D68.00 Von Willebrand disease, unspecified
CPT/HCPCS: 99214

== ENCOUNTER → 2025-07-05 14:26 | Outpatient (BNVA) | payer MEDICARE, SELFPAY | PROVIDERS: PCP Internal Medicine; Visit Provider Internal Medicine Cardiovascular Disease | DX: I48.91 Unspecified atrial fibrillation (principal); D68.00 Von Willebrand disease, unspecified | CPT/HCPCS: 99212 ==

== ENCOUNTER 2025-08-03 08:54 | Outpatient (AMB) | payer MEDICARE, SELFPAY ==
--- NOTE | 2025-08-03 08:55 | MHC.OFFVIS ---
Vital Signs 08/03/25 08:56 Height 5 ft 4 in Weight 150 lb BMI 25.7 BP 156/86 H Blood Pressure Location Rt brachial Position Sitting Pulse 68 Pulse Source Pulse Oximeter Pulse Oximetry (%) 100 Oxygen Delivery Method Room Air Intake Visit Reasons: colo screening l/s 10/2021 colo with sb Intake Note: Returning pt for recall colo screening. Last in 2020 w/ Dr. Roland. q3 years. Recent appt w/ Dr. Lara. CC: C.O. 1-2 intermittent episodes of GERD type sx within the last 6 mos. Pt denies any additional episodes or related complications. Pt does report having RLQ pain w/o any additional sx or concerns. RLQ pain, although intermittent, seems to be more frequent per pt. Ethanol Operator Required: No Accompanied by: Self / Same As Patient Allergies latex Allergy (Severe, Verified 08/31/25 07:28) Rash - latex gloves metoclopramide (From Reglan) Allergy (Severe, Verified 08/31/25 07:28) Anxiety morphine Allergy (Severe, Verified 08/31/25 07:28) Nausea and Vomiting niacin (Niaspan Extended-Release) Allergy (Severe, Verified 08/31/25 07:28) Swelling Aglemfw-RYJ-RvU Reductase Inhibitor (Tdqmrfd-Ufe-Hrl Reductase Inhibitor) Allergy (Severe, Verified 08/31/25 07:28) Muscle cramps HPI HPI colo screening l/s 10/2021 colo with sb: Details: LAST VISIT: GERD (gastroesophageal reflux disease) Patient reports that famotidine helps. Patient is also avoiding dietary triggers and reports to be doing well. She would like her PCP to fill her scripts for famotidine. Patient has no GI symptoms or concerns today and does not want to pay copays to be seen. Diverticulosis Patient denies any abdominal pain, discomfort, diarrhea. Patient reports that she is moving her bowels well. Patient continues ctfq-btz-ibdtpof fiber supplement. Patient is aware of diet. She will be following up with her PCP. We will see her in 5 years for colorectal screening. Patient was encouraged to call us if she will develop any GI concerning symptoms. ? Thank you for allowing me to participate in her care Plan Medications New famotidine (Pepcid) 20 mg PO DAILY 90 tabs 3RF K21.9 TODAY'S VISIT: Patient is here today for follow-up and to discuss going for colonoscopy. Last colonoscopy in 2020. Tubular adenoma found. Recommendation was made for follow-up 3 years as 1 medium-sized polyp was never retrieved. Patient reports loose stools after the procedure and some abdominal discomfort. Denies any rectal bleeding. History of Von Willebrand's disease. Patient denies any bleeding episodes. Reports that she has been doing well. Denies any cardiac or respiratory symptoms. No issues with anesthesia in the past. No history of sleep apnea. Patient is not on any anticoagulation medication. Patient denies any melena, hematochezia, unintentional weight loss or ribbon like stools. Patient denies any dyspepsia, dysphagia or odynophagia. [facility] Medical History (Updated 09/06/25 @ 19:54 by Scarlett Quarles, [facility]) Vertigo Osteopenia Vitamin B 12 deficiency Tubular adenoma Von Willebrand disease Post-operative nausea and vomiting Family history of breast cancer Hyperlipidemia Afib Anxiety and depression Lyme disease, unspecified HTN (hypertension) Surgical History History of esophagogastroduodenoscopy (EGD) H/O cardiac radiofrequency ablation Hx of tonsillectomy Hx of colonoscopy Family History Father HTN (hypertension) Hx of CABG Diabetes mellitus Mother Colon cancer Myocardial infarction Maternal Aunt Breast cancer Sister Colon polyp Social History Housing: House Alcohol intake: current Alcohol intake frequency: does not drink Patient Tobacco Use Status: Never used Tobacco e-Cigarette/Vaping Use: Never Used service: No Current occupational status: retired Current occupational exposures/hazards: No Cognitive needs: No Hearing needs: No Vision needs: Yes Review of Systems Const Denies weight gain and Denies weight loss ENT Reports no additional complaints, Denies dysphagia and Denies odynophagia Card Reports no additional complaints Resp Reports no additional complaints GI Denies abdominal pain, Denies belching, Denies melena, Denies bloating, Denies change in bowel habits, Denies dysphagia, Denies excessive flatus, Denies dyspepsia, Denies heartburn, Denies diarrhea, Denies loose stools, Denies nausea, Denies odynophagia and Denies vomiting Musc Reports no additional complaints Neuro Reports no additional complaints Psych Reports no additional complaints Endo Reports no additional complaints Physical Exam Vital Signs: Last Vital Signs Pulse 68 08/03/25 08:56 BP 156/86 H 08/03/25 08:56 Pulse Ox 100 08/03/25 08:56 Oxygen Delivery Method Room Air 08/03/25 08:56 BMI result Body Mass Index 25.7 Const General: healthy appearing, no acute distress and well developed Nutritional Appearance: well nourished Orientation/consciousness: patient oriented x3 Resp Effort & Inspection: normal respiratory effort, able to speak in complete sentences, no tracheal deviation and symmetric chest movement Auscultation: clear to auscultation bilaterally Cardio Rate: regular rate GI Inspection: Yes normal to inspection and No distended Palpation (GI): Soft to palpation, not firm, nontender and No hepatosplenomegaly present Auscultation: normal bowel sounds General: Yes no CVA tenderness Back/Spine/Pelvis Back: no CVA tenderness Skin General skin exam: elasticity normal, turgor normal and dry skin Neuro General: patient oriented x3 Psych Appearance: grossly normal Mental Status: mental status grossly normal Assessment & Plan Assessment & Plan (1) Screen for colon cancer: Code(s): Z12.11 - Encounter for screening for malignant neoplasm of colon (2) Von Willebrand disease: Code(s): D68.0 - Von Willebrand disease Category: Medical (3) Abdominal pain: Code(s): R10.9 - Unspecified abdominal pain Category: Medical Qualifiers: Abdominal location: unspecified location Qualified Code(s): R10.9 - Unspecified abdominal pain (4) Nausea: Code(s): R11.0 - Nausea Category: Medical (5) Tubular adenoma: Code(s): D36.9 - Benign neoplasm, unspecified site Category: Medical Plan Patient will be scheduled for colonoscopy rule last colonoscopy in 2020, tubular adenoma seen. One medium polyp not retrieved. Recommendation for 3 years screening. Patient denies any trouble with anesthesia. Some abdominal discomfort and loose stools for few days in right after the procedure. Denies any rectal bleeding. Patient does admit to have hemorrhoids will give her script for that. Patient should use it specially before she will do the prep. What to expect before during and after procedure discussed with patient. Stressed the importance of good bowel prep and clear liquid diet day before procedure. Patient will be seen after the procedure, sooner on as needed basis. She is agreeable to this plan and verbalizes understanding of instructions. She was given the opportunity to ask questions and all questions answered. Thank you for allowing me to participate in her care Orders: Referrals GI Procedure Notification Z12.11 - Encounter for screening for malignant neoplasm of colon Medications: New polyethylene glycol 3350 (Miralax) As directed by gastro[facility]ology department at [facility] 238 grams PO ONCE 238 grams 0RF Z12.11 - Encounter for screening for malignant neoplasm of colon bisacodyl (Dulcolax (bisacodyl)) take 4 tabs at noon the day before your colonoscopy 20 mg (4 x 5 mg) PO ONCE 4 tabs 0RF constipation 1 day Z12.11 - Encounter for screening for malignant neoplasm of colon hydrocortisone 2.5% (Proctosol HC) 1 appl MD BID-QID PRN 30 grams 2RF hemorrhoids K64.9 - Unspecified hemorrhoids Coding Level of Care Code Est Pt Level 3 (22764) Diagnoses Screen for colon cancer Z12.11 Von Willebrand disease D68.0 Abdominal pain, unspecified abdominal location R10.9 Abdominal location: unspecified location Nausea R11.0 Tubular adenoma D36.9 Time Spent (min) 30 Comment 20 minutes spent with patient and additional 10 minutes spent reviewing her records
[2025-08-03 08:56] VITALS: BP 156/86; PULSE 68; O2SAT 100; BMI 25.7
--- OUTSIDE RECORDS SUMMARY | 2025-08-03 10:09 | XMS_ITS | Clinical Summary ---
Author Organization [facility] Facility Address [address] [address] Care Team Providers Care Private Equity Associate Name Role Phone Brittany Dutton MD Primary Care Provider [phone] Social History Tobacco Use Types Packs/Day Years [...] age to complete this topic Care Teams Private Equity Associate Relationship Specialty Start Date End Date Brittany Dutton MD 1963 [place] [address] PCP - General Internal Medicine 12/25/21
== END 2025-08-03 10:49 | disposition home or self-care (01) ==
LOC: HO.HGI 08:55
PROVIDERS: PCP Internal Medicine; Visit Provider Nurse Practitioner Family
DX: D68.00 Von Willebrand disease, unspecified (principal); R10.31 Right lower quadrant pain; Z12.11 Encounter for screening for malignant neoplasm of colon; Z86.0101 Personal history of adenomatous and serrated colon polyps; R11.0 Nausea
CPT/HCPCS: 99213

== ENCOUNTER → 2025-08-03 08:54 | Outpatient (BNVA) | payer MEDICARE, SELFPAY | PROVIDERS: PCP Internal Medicine; Visit Provider Nurse Practitioner Family | DX: Z12.11 Encounter for screening for malignant neoplasm of colon (principal); D68.00 Von Willebrand disease, unspecified; R10.9 Unspecified abdominal pain; R11.0 Nausea; D36.9 Benign neoplasm, unspecified site | CPT/HCPCS: 99212 ==

== ENCOUNTER 2025-08-31 07:02 | Day surgery (SDC) | payer MEDICARE, SELFPAY ==
--- OUTSIDE RECORDS SUMMARY | 2025-04-26 06:25 | XMS_ITS | Continuity of Care Document ---
Author Organization [facility] Address [address] [place] [address] Phone Care Team Providers Care Banking Representative Name Role Phone Ivon Kibmall PA-C Unavailable Unavailable Allergies, Adverse Reactions, Alerts Substance Reaction Status Criticality morphine Active No Information METOCLOPRAMIDE HCL Active No Inform ation Onygfsa-ITX-GtG Reductase Inhibitors Acti ve No Information latex Active No Information Medications Medication Instructions Dosage Dose Quantity Effective Dates (start - stop) Status Indication Fill Status Comments doxycycline hyclate 100 mg tablet 5 - Active amoxicillin 500 mg capsule 5 - Active metoprolol succinate ER 25 mg tablet,exten ded release 24 hr TAKE 1 TABLET DAILY 5 - Active azithromycin 250 mg tablet 5 - Active Procedures Procedure Date Pneumatic (Aircast) Walker Short Brace J OFFICE/OUTPATIENT VISIT, [facility] FOOT RIGHT-COMPLETE 3V Advance Directives Directive Yes / No Effective Date File Name Other Directive No N/A N/A WARNING:The information contained in this section is historical and is provided for information only and does not constitute a legal document or any assurance that the information is still accurate. Please verify the information with the reynoso of the legal document before using it for clinical purposes. Encounters Encounter Description Practice Location Reason(s) For Visit Diagnoses Date Provider Encounter Disposition OFFICE/OUTPA TIENT VISIT, [facility], [address] [place] [address], [id number], [place] tel:[phone] [facility] RT Ankle Pain (chief complaint) Pain Ankle/Foot RTNondisplace d fracture of cuboid bone of right foot, initial encounter for closed fracture 5 Rehana Del Valle. [address] [place], [place], [id number] , [place]. tel: [phone] Family History Family Member Type Diagnosis Age At Onset No Information Payers Payer name Insurance type Identifiers Authorization(s) Com ments No Information Social History Type Description Quantity Date Captured Comments Alcohol Use Details Unknown Caffeine Use Details Unknown Tobacco Use Status Current non-smoker Smoking Status Never smoker Non-Smoking Tobacco Use Details : No Details Available : No Details Available Sex Female No - not Current Gender Female (finding) Vital Signs Date / Time: Height Weight BMI Pulse Rate Blood Pressure Temperature Respiratory Rate Body Surface Area Head Circumference Head Circ. Percentile Wt./Maurice. Percentile BMI percentile Pulse Ox Inhaled Ox 11:54 AM 64.00 in 70.760 kg (156.00 lbs) 26.7 8 kg/m daryler (2) Chief Complaint And Reason For Visit From encounter dated '04/26/2025 10:25'. RT Ankle Pain (chief complaint) History Of Present Illness Encounter Date Complaint History Of Prese nt Illness No Information Functional Status Date Description Comments No Information Instructions Date Instruction Additional Infor mation No Information Assessments Type Assessment Date assessment Pain Ankle/Foot RT assessment Nondisplaced fractur e of cuboid bone of right foot, initial encounter for closed fracture
--- OUTSIDE RECORDS SUMMARY | 2025-08-04 15:44 | XMS_ITS | Clinical Summary ---
Author Organization [facility] Facility Address [address] [address] Care Team Providers Care Hand Sample Maker Name Role Phone Brittany Dutton MD Primary Care Provider [phone] Social History Tobacco Use Types Packs/Day Years [...] age to complete this topic Care Teams Hand Sample Maker Relationship Specialty Start Date End Date Brittany Dutton MD 1963 [place] [address] PCP - General Internal Medicine 12/25/21
[2025-08-27 13:04] VITALS: BMI 25.7
--- NOTE | 2025-08-31 07:37 | MHC.SHP ---
Pre-Procedural Eval Section A - 24 Hr Update-Section A only Date of Service: 08/31/25 The patient is an INPATIENT: No The patient has been examined within 24 hours of the surgical procedure. The History & Physical has been completed within 30 days and I have reviewed it.: Yes Section B - Complete if H&P > 30 days Chief Complaint: Encounter for screening for malignant neoplasm of Allergies: Allergies Allergy/AdvReac Type Severity Reaction Status Date / Time latex Allergy Severe Rash - Verified 08/31/25 07:28 latex gloves metoclopramide (From Reglan) Allergy Severe Anxiety Verified 08/31/25 07:28 morphine Allergy Severe Nausea and Verified 08/31/25 07:28 Vomiting niacin (Niaspan Allergy Severe Swelling Verified 08/31/25 07:28 Extended-Release) Zlxetvp-BJZ-RnP Reductase Allergy Severe Muscle Verified 08/31/25 07:28 Inhibitor (Tpkdthx-Ggm-Wnm cramps Reductase Inhibitor) Plan Diagnosis/Plan: Unchanged I have reviewed the history and physical and performed a pertinent physical examination on my patient. No changes have occurred unless specified. In addition pt will also be receiving DDAVP pre-procedure. Time Spent With Patient Time: Total time managing care of this patient today ____ minutes.
[2025-08-31 07:44] VITALS: BP 169/68; PULSE 66; RESP 16; TEMP 36.9; O2SAT 100
[2025-08-31] MEDS: Lactated Ringers 1,000 ML 100 ML IVCONT (07:44)
--- NOTE | 2025-08-31 08:03 | HO.ANESPROP2 ---
Documented by User: Sabi Valerio NP 08/30/25 09:23 HPI - Anesthesia Eval Consult details Narrative: 70 yr old female for colonoscopy H/O atrial fibrillation/aflutter: follows with Dr. Lara, attributes recent episodes to ETOH & cheese, but better since cutting back; saw [facility] clinic, discussed anticoagulation & rate control for management. Von Willebrand PMFSH Active Problems Active Problems: All Active Problems (Updated 08/27/25 @ 12:46 by Lo Louise RN) Left foot pain (Acute) Vitamin D deficiency (Acute) Abdominal pain (Acute) Nausea (Acute) Annual physical exam (Acute) Mammogram normal (Acute) Normal Pap smear (Acute) Von Willebrand disease (Acute) Osteopenia (Acute) Vitamin B 12 deficiency (Acute) Afib (Acute) Tubular adenoma (Acute) Family history of breast cancer (Acute) Hyperlipidemia (Acute) Anxiety and depression (Acute) Lyme disease, unspecified (Acute) HTN (hypertension) (Acute) Past Medical History Medical History Vertigo Osteopenia Vitamin B 12 deficiency Tubular adenoma Von Willebrand disease Post-operative nausea and vomiting Family history of breast cancer Hyperlipidemia Afib Anxiety and depression Lyme disease, unspecified HTN (hypertension) Family History Family History Father HTN (hypertension) Hx of CABG Diabetes mellitus Mother Colon cancer Myocardial infarction Maternal Aunt Breast cancer Sister Colon polyp Surgical History Surgical History History of esophagogastroduodenoscopy (EGD) H/O cardiac radiofrequency ablation Hx of tonsillectomy Hx of colonoscopy History of Problems with Anesthesia: No Social History Social History Housing: House Alcohol intake: current Alcohol intake frequency: does not drink Patient Tobacco Use Status: Never used Tobacco e-Cigarette/Vaping Use: Never Used Use of substances other than those prescribed or required for medical reasons: No Have you been hit, kicked, punched, or otherwise hurt by someone within the past year? If so, by whom?: No Are you DNR?: No Advance Directives: No Advance Directives Information Provided: Yes service: No Current occupational status: retired Current occupational exposures/hazards: No Cognitive needs: No Hearing needs: No Vision needs: Yes Meds Allergies Allergy/AdvReac Type Severity Reaction Status Date / Time latex Allergy Severe Rash - Verified 08/31/25 07:28 latex gloves metoclopramide (From Reglan) Allergy Severe Anxiety Verified 08/31/25 07:28 morphine Allergy Severe Nausea and Verified 08/31/25 07:28 Vomiting niacin (Niaspan Allergy Severe Swelling Verified 08/31/25 07:28 Extended-Release) Kxjpakb-GMF-VuX Reductase Allergy Severe Muscle Verified 08/31/25 07:28 Inhibitor (Dhxfnmt-Whu-Cpl cramps Reductase Inhibitor) Home Medications ?Medication ?Instructions ?Recorded ?Confirmed ?Last Taken ?Type Saccharomyces boulardii [Daily PO 09/05/20 07/05/25 Unknown History Probiotic (S. boulardii)] aspirin 81 mg tablet,delayed 81 mg PO DAILY 09/05/20 08/31/25 08/24/25 History release coenzyme Q10 [CoQ-10] PO 09/05/20 07/05/25 Unknown History azelaic acid 15 % topical gel topical 03/27/21 07/05/25 Unknown History oregano oil 1,500 mg capsule 1,500 mg PO DAILY 04/21/21 07/05/25 Unknown History calcium with magnesium PO 07/10/21 07/05/25 Unknown History citrus bergamot PO 07/10/21 07/05/25 Unknown History ascorbic acid (vitamin C) 1,000 mg 1 g PO Q6H 02/05/24 08/31/25 Unknown History capsule cholecalciferol (vitamin D3) 10 2,000 unit PO DAILY 04/14/25 08/31/25 Unknown History mcg/0.25 mL oral drops vitamin B complex 1 cap PO DAILY 05/11/25 08/31/25 Unknown History Exam Height,Weight and Vital Signs: Height 5 ft 4 in Weight 68.039 kg Narrative Narrative: EKG 08/26/25 at [facility] visit NSR, rate 70 Assessment and Plan Final Anesthetic Review History of Problems with Anesthesia: No Documented by User: Ani Hernandez DO 08/31/25 08:05 [facility] Past Medical History Medical History Vertigo Osteopenia Vitamin B 12 deficiency Tubular adenoma Von Willebrand disease Post-operative nausea and vomiting Family history of breast cancer Hyperlipidemia Afib Anxiety and depression Lyme disease, unspecified HTN (hypertension) Family History Family History Father HTN (hypertension) Hx of CABG Diabetes mellitus Mother Colon cancer Myocardial infarction Maternal Aunt Breast cancer Sister Colon polyp Family history of problems with anesthesia: No Surgical History Surgical History History of esophagogastroduodenoscopy (EGD) H/O cardiac radiofrequency ablation Hx of tonsillectomy Hx of colonoscopy History of Problems with Anesthesia: Yes (PONV) Social History Social History Housing: House Alcohol intake: current Alcohol intake frequency: does not drink Patient Tobacco Use Status: Never used Tobacco e-Cigarette/Vaping Use: Never Used Use of substances other than those prescribed or required for medical reasons: No Have you been hit, kicked, punched, or otherwise hurt by someone within the past year? If so, by whom?: No Are you DNR?: No Advance Directives: No Advance Directives Information Provided: Yes service: No Current occupational status: retired Current occupational exposures/hazards: No Cognitive needs: No Hearing needs: No Vision needs: Yes Meds Allergies Allergy/AdvReac Type Severity Reaction Status Date / Time latex Allergy Severe Rash - Verified 08/31/25 07:28 latex gloves metoclopramide (From Reglan) Allergy Severe Anxiety Verified 08/31/25 07:28 morphine Allergy Severe Nausea and Verified 08/31/25 07:28 Vomiting niacin (Niaspan Allergy Severe Swelling Verified 08/31/25 07:28 Extended-Release) Enyqksm-HTJ-XoW Reductase Allergy Severe Muscle Verified 08/31/25 07:28 Inhibitor (Loyidmi-Tor-Lzr cramps Reductase Inhibitor) Home Medications ?Medication ?Instructions ?Recorded ?Confirmed ?Last Taken ?Type Saccharomyces boulardii [Daily PO 09/05/20 07/05/25 Unknown History Probiotic (S. boulardii)] aspirin 81 mg tablet,delayed 81 mg PO DAILY 09/05/20 08/31/25 08/24/25 History release coenzyme Q10 [CoQ-10] PO 09/05/20 07/05/25 Unknown History azelaic acid 15 % topical gel topical 03/27/21 07/05/25 Unknown History oregano oil 1,500 mg capsule 1,500 mg PO DAILY 04/21/21 07/05/25 Unknown History calcium with magnesium PO 07/10/21 07/05/25 Unknown History citrus bergamot PO 07/10/21 07/05/25 Unknown History ascorbic acid (vitamin C) 1,000 mg 1 g PO Q6H 02/05/24 08/31/25 Unknown History capsule cholecalciferol (vitamin D3) 10 2,000 unit PO DAILY 04/14/25 08/31/25 Unknown History mcg/0.25 mL oral drops vitamin B complex 1 cap PO DAILY 05/11/25 08/31/25 Unknown History Exam Exam Date and Time: 08/31/25 0802 Height,Weight and Vital Signs: Height 5 ft 4 in Weight 68.039 kg Vital Signs Temperature 98.4 F 08/31/25 07:44 Pulse Rate 66 08/31/25 07:44 Respiratory Rate 16 08/31/25 07:44 Blood Pressure 169/68 H 08/31/25 07:44 Pulse Oximetry 100 08/31/25 07:44 Oxygen Delivery Method Room Air 08/31/25 07:44 Temperature 98.4 F 08/31/25 07:44 Pulse Rate 66 08/31/25 07:44 Respiratory Rate 16 08/31/25 07:44 Blood Pressure 169/68 H 08/31/25 07:44 Pulse Oximetry 100 08/31/25 07:44 Oxygen Delivery Method Room Air 08/31/25 07:44 Airway Mallampati Class: III TM Dist: >3cm Neck ROM: Full Loose/Missing/Broken Teeth: No (patient denies any loose or broken teeth) Heart: S1S2 Lungs: CTAB Assessment and Plan Assessment Anesthesia Assessment: Anesthesia Plan Discussed and Chart Reviewed Final Anesthetic Review Family History of Problems with Anesthesia: No History of Problems with Anesthesia: Yes (PONV) NPO: Yes ASA Class: II Final Preanesthetic Review: No Changes in Pt Med Stat, Meds/Allgs Chart Reviewed, Consent Obtained/Reviewed and Anes Risks/Benef Reviewed Patient Risk: Low Procedure Risk: Low Anesthetic Plan Anesthetic Plan: MAC: and Agree w/ Assess. and Plan Disposition: Standard PACU
--- NOTE | 2025-08-31 08:24 | PC.NURSE ---
Pharmacy contacted to get DDVAP medication mixed and brought to preop at 0700. Pharmacy staff member stated they would get it mixed and bring right over. I called pharmacy a second time at 7:50 looking for update on medication. The pharmacy staff member stated that they had to mix a medication first for MDS. I explained this order was placed the day before and pharmacy was contacted yesterday to make sure this medication would be ready prior to the start of the patient's procedure. I did not receive the medication until 0820 delaying not only patient care but their procedure as well. Dr. Kingston made aware.
[2025-08-31 10:06] VITALS: BP 119/44; PULSE 60; RESP 16; TEMP 36.1; O2SAT 97
[2025-08-31 10:15] VITALS: BP 112/53; PULSE 57; RESP 16; O2SAT 97
--- NOTE | 2025-08-31 10:15 | P.OPN-COLO_ITS ---
Colonoscopy Operative Note Operative Note Date of Service: 08/31/25 Narrative: Procedure: Colonoscopy Indication: Personal hx of polyps Endoscopist: Celeste Kingston MD Anesthesia Provider: Dr Ani Hernandez Anesthesia type: MAC Instrument: Olympus [id number]-H190L Consent: Indication, risks vs benefits, and alternatives were discussed with the patient who gave written informed consent to proceed. DDAVP was administered 30 mins pre-procedure. EKG, pulse, pulse oximetry and blood pressure were monitored throughout the procedure. Please see anesthesia flowsheet. Procedure: The patient was brought to the procedure room and placed in the left lateral decubitus position. IV medications were administered by the anesthesia provider in attendance. A digital rectal exam was performed which was abnormal due to finding of hemorrhoids. A distal attachment cap was affixed to the tip of the colonoscope which was then inserted through the anus and advanced through the colon to the cecum at 75 cm,and terminal ileum. Appendiceal orifice and ileocecal valve were identified. Mucosa was carefully examined under high definition white light as the instrument was slowly withdrawn in a retrograde panoramic fashion. Retroflexion was performed in ascending colon and rectum. The procedure was not difficult. There were no immediate obvious complications. The quality of the prep was BBPS: 3+3+3 = adequate Withdrawal time 8 minutes. Limitations: No limitations. Findings: Mucosa: Normal to cecum and terminal ileum. Protruding lesions: * 1 sessile polyp of size 6 mm in sigmoid colon. Cold snare polypectomy was performed. The polyp was completely removed and retrieved. * Medium internal hemorrhoids without stigmata of recent bleeding. Impression: 1. Normal colon and terminal ileum mucosa 2. Total of 1 polyp removed 3. Internal and external hemorrhoids Recommendations: - Follow path results. - Repeat colonoscopy in 7 years is optional if patient in good health.
[2025-08-31 10:24] VITALS: BP 124/54; PULSE 59; RESP 16; TEMP 36.1; O2SAT 97
== END 2025-08-31 10:51 | disposition home or self-care (01) ==
PROVIDERS: PCP Internal Medicine; Visit Provider Internal Medicine
PROC: 0DJD8ZZ Inspection of Lower Intestinal Tract, Via Natural or Artificial Opening Endoscopic (ICD-10-PCS; CPT 45378; principal; 2025-08-31 08:20)
DX: Z12.11 Encounter for screening for malignant neoplasm of colon (principal); R10.9 Unspecified abdominal pain; D68.00 Von Willebrand disease, unspecified; R11.10 Vomiting, unspecified; Z80.0 Family history of malignant neoplasm of digestive organs; Z83.719 Family history of colon polyps, unspecified; Z86.0109 Personal history of other colon polyps; K64.4 Residual hemorrhoidal skin tags; K64.8 Other hemorrhoids; D12.5 Benign neoplasm of sigmoid colon
CPT/HCPCS: 45385; 88305; J2003; J2597; J2704

== ENCOUNTER → 2025-08-31 07:02 | Outpatient (BNV) | payer MEDICARE, SELFPAY | PROVIDERS: PCP Internal Medicine; Visit Provider Internal Medicine | DX: Z12.11 Encounter for screening for malignant neoplasm of colon (principal); Z86.0100 Personal history of colon polyps, unspecified; D12.5 Benign neoplasm of sigmoid colon; K64.8 Other hemorrhoids | CPT/HCPCS: 45385 ==

== ENCOUNTER 2025-09-07 11:39 | Outpatient (AMB) | payer MEDICARE, SELFPAY ==
--- OUTSIDE RECORDS SUMMARY | 2025-04-26 06:25 | XMS_ITS | Continuity of Care Document ---
Author Organization [facility] Address [address] [place] [address] Phone Care Team Providers Care Sugarcane Research Technician Name Role Phone Ivon Kimball PA-C Unavailable Unavailable Allergies, Adverse Reactions, Alerts Substance Reaction Status Criticality morphine Active No Information METOCLOPRAMIDE HCL Active No Inform ation Fyihxjy-QCR-BuS Reductase Inhibitors Acti ve No Information latex [...] (Aircast) Walker Short Brace J OFFICE/OUTPATIENT VISIT, [facility] FOOT RIGHT-COMPLETE 3V Advance Directives Directive Yes [...] Date Provider Encounter Disposition OFFICE/OUTPA TIENT VISIT, [facility], [address] [place] [address], [id number], [place] tel:[phone] [facility] RT Ankle Pain (chief complaint) Pain Ankle/Foot RTNondisplace d fracture of cuboid bone of right foot, initial encounter for closed fracture 5 Rehana Del Valle. [address] [place], [place], [id number] , [place]. tel: [phone] Family History Family Member Type Diagnosis Age [...]
--- OUTSIDE RECORDS SUMMARY | 2025-09-03 11:10 | XMS_ITS | Encounter Summary ---
Author Organization [facility] Address [address] [place] [id number] Phone Care Team Providers Care Talent Development Analyst Name Role Phone Brittany Dutton MD Primary Care Provider [phone] Reason for Visit * Reason Comments Leg Pain Both legs , very george nful from outside to above ankle. Recent colonoscopy Encounter Details Date Type Department Care Team (Late st Contact Info) Description 09/03/2025 11:10 AM EDT Office Visit [facility] at [address] [address] Shalini Hardy, AUDITING CODER [address] [place] [address] [email or web address] Tendonitis (Primary Dx) Social History Tobacco Use Types Packs/Day Years Used Date Smoking Tobacco: Never Smokeless Tobacco: Never Tobacco Cessation:Counseling Given: Not Answered Education Answer Date Recorded Are you interested in more education? Not on artur e 08/16/2025 Are you concerned about learning? Not on file 08/16/2025 No 08/16/2025 No 08/16/2025 Digital Access Answer Date Recorded No 08/16/2025 No 08/16/2025 Reliable internet access at home? Not on file 08/16/2025 Device with a working camera? Not on file Comments No Sex and Gender Information Value Date Recorded Sex Assigned at Not on file Legal Sex Female 5:58 PM EST Gender Identity Not on file Sexual Orientation Not on file documented as of this encounter Last Filed Vital Signs Vital Sign Reading Time Taken Comments Blood Pressure 160/99 09/03/2025 11:57 AM EDT Pulse 74 09/03/2025 11:57 AM EDT Temperature 36.6 C (97.8 F) 09/03/2025 11:57 AM EDT Respiratory Rate 18 09/03/2025 11:57 AM EDT Oxygen Saturation 98% 09/03/2025 11:57 AM EDT Inhaled Oxygen Concentration - - Weight - - Height - - Body Mass Index - - documented in this encounter Progress Notes * Shalini Hardy, AUDITING CODER - 09/03/2025 11:10 AM EDT Images from the original note were not included. Subjective: Patient ID: Rosina Servin is a 70 y.o. female. Lateral right ankle pain x 2 days, no known injury. Now spreading to other ankle. Colonoscopy Saturday. Review of Systems Skin: Negative for color change. Musculoskeletal: Positive for joint pain. Negative for joint swelling. Vitals: 09/03/25 1157 BP: (!) 160/99 Pulse: 74 Resp: 18 Temp: 36.6 ??C (97.8 ??F) SpO2: 98% Objective: Physical Exam Constitutional: Appearance: Normal appearance. HENT: Head: Normocephalic and atraumatic. Right Ear: External ear normal. Left Ear: External ear normal. Nose: Nose normal. Pulmonary: Effort: Pulmonary effort is normal. Musculoskeletal: Right ankle: No swelling, deformity, ecchymosis or lacerations. Tenderness present over the medial malleolus (proximal to malleolus). Normal range of motion. Normal pulse. Left ankle: No swelling, deformity, ecchymosis or lacerations. Tenderness present over the lateral malleolus (proximal to malleolus). Normal range of motion. Normal pulse. Comments: Neg Ari bilat Skin: General: Skin is warm and dry. Neurological: General: No focal deficit present. Mental Status: She is alert and oriented to person, place, and time. Psychiatric: Mood and Affect: Mood normal. Behavior: Behavior normal. Thought Content: Thought content normal. Judgment: Judgment normal. No results found for this visit on 09/03/25. Procedure: Procedures Assessment/Plan: Diagnosis Plan 1. Tendonitis Assessment and Plan: Ankle tendonitis - Exam c/w tendonitis - No calf pain, swelling or discoloration, pulses 2+ bilat, DVT unlinely -Offered steroid as she cannot take NSAIDS, pt declined, will stick with tylenol - Advised ortho for follow up if symptoms persist documented in this encounter Plan of Treatment Not on file documented as of this encounter Visit Diagnoses Diagnosis Tendonitis- Primary Enthesopathy of unspecified site documented in this encounter Care Teams Talent Development Analyst Relationship Specialty Start Date End Date Brittany Dutton MD [address] [place] [address] PCP - General Internal Medicine 08/16/25 documented as of this encounter Additional Source Comments The information contained in this document represents components of the legal health record. It is not the complete legal health record.[facility]
--- NOTE | 2025-09-07 11:41 | A.OFFVIS_ITS ---
Vital Signs 09/07/25 11:46 Height 5 ft 4 in Weight 149 lb BMI 25.6 BP 144/66 H Blood Pressure Location Rt brachial Position Sitting Pulse 64 Pulse Source Pulse Oximeter Pulse Oximetry (%) 100 Oxygen Delivery Method Room Air Intake Visit Reasons: S/P FUV Intake Note: Est pt for s/p colo FUV CC: C.O. hemorrhoid peristence / exacerbation episodes despite having the hydrocortisone. Pt states that their sx have been worse s/p colo and have not responded to the hydrocortisone. Chronometer Assembler And Adjuster Required: No Accompanied by: Spouse Allergies latex Allergy (Severe, Verified 09/07/25 11:42) Rash - latex gloves metoclopramide (From Reglan) Allergy (Severe, Verified 09/07/25 11:42) Anxiety morphine Allergy (Severe, Verified 09/07/25 11:42) Nausea and Vomiting niacin (Niaspan Extended-Release) Allergy (Severe, Verified 09/07/25 11:42) Swelling Alqgmrn-JPE-QxV Reductase Inhibitor (Fmgrtvr-Woo-Dmy Reductase Inhibitor) Allergy (Severe, Verified 09/07/25 11:42) Muscle cramps HPI HPI S/P FUV: Details: LAST VISIT: Screen for colon cancer Von Willebrand disease Abdominal pain Nausea Tubular adenoma Plan Patient will be scheduled for colonoscopy rule last colonoscopy in 2020, tubular adenoma seen. One medium polyp not retrieved. Recommendation for 3 years screening. Patient denies any trouble with anesthesia. Some abdominal discomfort and loose stools for few days in right after the procedure. Denies any rectal bleeding. Patient does admit to have hemorrhoids will give her script for that. Patient should use it specially before she will do the prep. What to expect b efore during and after procedure discussed with patient. Stressed the importance of good bowel prep and clear liquid diet day before procedure. Patient will be seen after the procedure, sooner on as needed basis. She is agreeable to this plan and verbalizes understanding of instructions. She was given the opportunity to ask questions and all questions answered. ? Thank you for allowing me to participate in her care Referrals GI Procedure Notification Z12.11 New polyethylene glycol 3350 (Miralax) As directed by gastroenterology department at [facility] 238 grams PO ONCE 238 grams 0RF Z12.11 bisacodyl (Dulcolax (bisacodyl)) take 4 tabs at noon the day before your colonoscopy 20 mg (4 x 5 mg) PO ONCE 4 tabs 0RF constipation 1 day Z12.11 hydrocortisone 2.5% (Proctosol HC) 1 appl VT BID-QID PRN 30 grams 2RF hemorrhoids K64.9 COLONOSCOPY Findings: Mucosa: Normal to cecum and terminal ileum. Protruding lesions: * 1 sessile polyp of size 6 mm in sigmoid colon. Cold snare polypectomy was performed. The polyp was completely removed and retrieved. * Medium internal hemorrhoids without stigmata of recent bleeding. Impression: 1. Normal colon and terminal ileum mucosa 2. Total of 1 polyp removed 3. Internal and external hemorrhoids Recommendations: - Follow path results. - Repeat colonoscopy in 7 years is optional if patient in good health. PATHOLOGY RESULTS Diagnosis Colon, sigmoid, polyp: Tubular adenoma; negative for high-grade dysplasia and carcinoma TODAY'S VISIT Patient is here today for follow-up and to discuss colonoscopy results. One tubular adenoma found. Patient has a family history of CRC. Patient mother of colon cancer and she should return for colorectal screening every 5 years. Patient reports she continues with rectal bleeding every time she has a bowel movement. Patient reports her stool is soft. Blood in the toilet after bowel movements. Patient reports to have brown stools. No blood in the stool. Diagnosed with internal and external hemorrhoids. Patient is using Proctosol cream, however she does not feel like it helps much. Patient reports 2-3 bowel movements a day. There are days when she has more bowel movements. Patient reports that she eats vegetables. Does not want to take extra fiber, however will look into her diet and PICC food that is high in fiber. Patient denies nausea or vomiting. Denies any other GI concerning symptoms. [facility] Medical History (Updated 09/07/25 @ 12:21 by Scarlett D Robina, MDS MANAGER-BC) Tubular adenoma of colon Vertigo Osteopenia Vitamin B 12 deficiency Tubular adenoma Von Willebrand disease Post-operative nausea and vomiting Family history of breast cancer Hyperlipidemia Afib Anxiety and depression Lyme disease, unspecified HTN (hypertension) Surgical History History of esophagogastroduodenoscopy (EGD) H/O cardiac radiofrequency ablation Hx of tonsillectomy Hx of colonoscopy Family History Father HTN (hypertension) Hx of CABG Diabetes mellitus Mother Colon cancer Myocardial infarction Maternal Aunt Breast cancer Sister Colon polyp Social History Housing: House Alcohol intake: current Alcohol intake frequency: does not drink Patient Tobacco Use Status: Never used Tobacco e-Cigarette/Vaping Use: Never Used service: No Current occupational status: retired Current occupational exposures/hazards: No Cognitive needs: No Hearing needs: No Vision needs: Yes Review of Systems Const Denies weight gain and Denies weight loss ENT Reports no additional complaints, Denies dysphagia and Denies odynophagia Card Reports no additional complaints Resp Reports no additional complaints GI Denies abdominal pain, Denies belching, Denies melena, Denies bloating, Reports hematochezia, Denies change in bowel habits, Denies dysphagia, Denies excessive flatus, Denies dyspepsia, Denies heartburn, Denies diarrhea, Denies loose stools, Denies nausea, Denies odynophagia and Denies vomiting Reports no additional complaints Musc Reports no additional complaints Neuro Reports no additional complaints Psych Reports no additional complaints Endo Reports no additional complaints Physical Exam Vital Signs: BMI result Body Mass Index 25.6 Const General: healthy appearing, no acute distress and well developed Nutritional Appearance: well nourished Orientation/consciousness: patient oriented x3 Resp Effort & Inspection: normal respiratory effort, able to speak in complete sentences, no tracheal deviation and symmetric chest movement Auscultation: clear to auscultation bilaterally Cardio Rate: regular rate GI Inspection: Yes normal to inspection and No distended Palpation (GI): Soft to palpation, not firm, nontender and No hepatosplenomegaly present Auscultation: normal bowel sounds General: Yes no CVA tenderness Back/Spine/Pelvis Back: no CVA tenderness Skin General skin exam: elasticity normal, turgor normal and dry skin Neuro General: patient oriented x3 Psych Appearance: grossly normal Mental Status: mental status grossly normal Assessment & Plan Assessment & Plan (1) Von Willebrand disease: Code(s): D68.0 - Von Willebrand disease Category: Medical (2) Hemorrhoids without complication: Code(s): K64.9 - Unspecified hemorrhoids (3) Rectal bleed: Code(s): K62.5 - Hemorrhage of anus and rectum (4) Tubular adenoma of colon: Comment: One tubular adenoma on colonoscopy 08/[address] Kingston. Family history of CRC. Will need colonoscopy in 5 years (in August of 2030) Code(s): D12.6 - Benign neoplasm of colon, unspecified Category: Medical Plan Patient will continue Proctosol. May do Sitz baths with Epsom salts. Increase fiber. List of food high in fiber given to patient. Take vitamin K. Patient will repeat colonoscopy in 5 years as she has a family history of CRC. Patient will follow-up with us as needed. She will call us if she will continue to have rectal bleeding. Might need to be referred to general surgery. Patient is agreeable to current plan of care and verbalizes understanding of instructions. She was given the opportunity to ask questions and all questions answered. Thank you for allowing me to participate in her care Coding Level of Care Code Est Pt Level 3 (22611) Diagnoses Von Willebrand disease D68.0 Hemorrhoids without complication K64.9 Rectal bleed K62.5 Tubular adenoma of colon D12.6 Time Spent (min) 30 Comment 20 minutes spent with patient and additional 10 minutes spent reviewing her records
[2025-09-07 11:46] VITALS: BP 144/66; PULSE 64; O2SAT 100; BMI 25.6
--- OUTSIDE RECORDS SUMMARY | 2025-09-07 15:01 | XMS_ITS | Clinical Summary ---
Author Organization [facility] Facility Address [address] [address] Care Team Providers Care Branch Billing Payroll Clerk Name Role Phone Brittany Dutton MD Primary Care Provider Social History Tobacco Use Types Packs/Day Years [...] age to complete this topic Care Teams Branch Billing Payroll Clerk Relationship Specialty Start Date End Date Brittany Dutton MD [address] [place] [address] PCP - General Internal Medicine 12/25/21
--- OUTSIDE RECORDS SUMMARY | 2025-09-07 15:01 | XMS_ITS | Clinical Summary ---
Author Organization [facility] Address [address] [address] Phone Care Team Providers Care Quality Control Assessor Name Role Phone Brittany Dutton MD Primary Care Provider [phone] Allergies Active Allergy Reactions Criticality Noted Date Comments Atorvastatin Other (See Comments) 09/05/2009 myalgia Latex, Natural Rubber Hives 09/05/2009 Morphine High 11/14/2015 Niacin 08/16/2025 Nicotine Anaphylaxis 09/05/2009 Metoclopramide Hcl 08/16/2025 Medications aspirin 325 MG tablet ASPIRIN 325 MG TABS 6 Active cholecalciferol (VITAMIN D3) 2,000 unit capsule VITAMIN D3 2000 UNIT CAPS 6 Active metoprolol succinate (TOPROL-XL) 50 MG 24 hr tablet METOPROLOL SUCCINATE ER 50 MG [id number] 6 Active lisinopril (PRINIVIL,ZESTR IL) 2.5 MG tablet LISINOPRIL 2.5 MG TABS 6 Active venlafaxine (EFFEXOR) 75 MG tablet 6 Active oregano oiL 1,500 mg Cap OIL OF OREGANO CAPS 6 Active LAXATIVE, BISACODYL, 5 mg Tab tablet TAKE 4 TABLETS BY MOUTH AT NOON THE DAY BEFORE YOUR COLONOSCOPY 5 Active hydrocortisone (ANUSOL-HC) 2.5 % rectal cream APPLY RECTALLY 2 TO 4 TIMES A DAY NEEDED FOR HEMORRHOIDS 5 Active polyethylene glycol (MIRALAX) 17 gram/dose powder MIX 238 GRAMS AND TAKE BY MOUTH ONCE DIRECTED Active b complex vitamins capsule Take 1 capsule by mouth daily. Active coenzyme Q10 30 mg capsule Take 30 mg by mouth 3 (three) times a day. Active Encounters Date Type Department Care Team Description 09/03/2025 11:10 AM EDT Office Visit [facility] at [address] [address] Shalini Hardy CNP Tendonitis (Primary Dx) 08/16/2025 3:50 PM EDT Office Visit [facility] at [address] [address] Abby Macario, LEAN COACH Local reaction to bee sting, accidental or unintentional, initial encounter (Primary Dx) from Last 3 Months Immunizations Immunization Administration Dates Next Due Influenza High-Dose Trivalen t Preservative Free IM 08/28/2019,09/16/2018 Influenza Quadrivalent MDCK Preservative Free IM 11/24/2017 Influenza, Unspecified Formulation 01/09/2010(De ferred: Other) Pneumococcal polysaccharide PPSV23 01/10/2010 Pneumococcal, Unspecified Formulation 01/10/2010 Family History Medical History Relation Comments Diabetes mellitus Father FH: Diabetes m ellitus Hypertension Father FH: Hypertension Diabetes mellitus Maternal Grandmother FH: Diabe jabier mellitus Thyroid disease Maternal Grandmother FH: Thyroid disorder Heart disease Mother FH: Cardiac diso rder Relation Status Comments Father Maternal Grandmother Mother Social History Tobacco Use Types Packs/Day Years [...] on file Sexual Orientation Not on file Last Filed Vital Signs Vital Sign Reading Time Taken Comments Blood Pressure 160/99 09/03/2025 11:57 AM EDT Pulse 74 09/03/2025 11:57 AM EDT Temperature 36.6 C (97.8 F) 09/03/2025 11:57 AM EDT Respiratory Rate 18 09/03/2025 11:57 AM EDT Oxygen Saturation 98% 09/03/2025 11:57 AM EDT Inhaled Oxygen Concentration - - Weight 68 kg (150 lb) 08/16/2025 3:50 PM EDT Height 161.3 cm (5' 3.5 ) 05/21/2016 11:35 AM ED T Body Mass Index 26.15 05/21/2016 11:35 AM EDT Plan of Treatment Health Maintenance Due Date Last Done Comments Adult Td,Tdap Booster 1953 LIPID PANEL 1953 DEPRESSION SCREENING 1965 HEPATITIS C SCREENING 1971 MAMMOGRAM 1993 COLOGUARD 1998 COLONOSCOPY 1998 COLORECTAL CANCER SCREENING 1998 FIT TEST 1998 FOBT 1998 SIGMOIDOSCOPY 1998 VIRTUAL COLONOSCOPY 1998 ZOSTER VACCINES (1 of 2) 2003 CREATININE LEVEL 01/10/2011 01/10/2010 PNEUMOCOCCAL VACCINES (50+ years) (2 of 2 - PCV) 01/10/2011 01/10/2010 POTASSIUM LEVEL 01/10/2011 01/10/2010 OSTEOPOROSIS SCREENING INITI AL (ONE-TIME) 2018 INFLUENZA VACCINE (#1) 2025 9, 09/16/2018, 11/24/2017 COVID-19 VACCINE (2 - 2024-2 6 season) 2025 02/15/2021 RSV VACCINE (1 - 1-dose 75+ series) 02/12/2028 SMOKING STATUS SCREENING (On ce After 26 Yrs) Completed 09/03/2025 HEPATITIS A VACCINES Aged Out No long er eligible based on patient's age to complete this topic HIB VACCINES Aged Out No longer eligi ble based on patient's age to complete this topic MENINGOCOCCAL VACCINES (ACWY) Aged Out No longer eligible based on patient's age to complete this topic MENINGOCOCCAL VACCINES (B) Aged Out N o longer eligible based on patient's age to complete this topic Medical Devices Not on file Procedures Procedure Name Priority Date/Time Associated Diagnosis Comments HISTORICAL LAB Routine 01/10/2010 6:45 AM EST from Last 3 Months or Most Recently Relevant to Health Maintenance Results * (ABNORMAL) Historical Lab (01/10/2010 6:45 AM EST) GLUCOSE 115(A) 70 - 100 mg/dL [facility] UREA N 11 6 - 23 mg/dL [facility] CREATININE 0.68 0.50 - 1.20 mg/dL [facility] eGFR >=60 [facility] Comment: (Abnormal if <60 mL/min/1.73m2 If patient is black, multiply by 1.21) SODIUM 137 136 - 145 mmol/L [facility] POTASSIUM 4.6 3.4 - 5.0 mmol/L [facility] CHLORIDE 105 98 - 107 mmol/L [facility] TOTAL CO2 27 22 - 31 mmol/L [facility] CALCIUM 8.3(A) 8.8 - 10.4 mg/dL [facility] ANION GAP 5 5 - 17 mmol/L [facility] 01/10/2010 6:45 AM EST Comment:BLOOD us Damari STEPHEN LAB BLOOD ORDERABLES Final Result [address] [address] from Last 3 Months or Most Recently Relevant to Health Maintenance Insurance [place] BLUE REPLACEMENT [facility] MEDICARE PPO BLUE REPLACEMENT [id number] [place] [address] MEDICARE PPO BLUE REPLACEMENT [facility] MEDICARE PPO BLUE REPLACEMENT [facility] MEDICARE PPO BLUE REPLACEMENT [id number] [place] [address] MEDICARE PPO BLUE REPLACEMENT Care Teams Quality Control Assessor Relationship Specialty Start Date End Date Brittany Dutton MD [address] [place], [place] [phone] PCP - General Internal Medicine 08/16/25 Additional Source Comments The information contained in this document represents components of the legal health record. It is not the complete legal health record.[facility]
== END 2025-09-07 13:38 | disposition home or self-care (01) ==
LOC: HO.HGI 11:40
PROVIDERS: PCP Internal Medicine; Visit Provider Nurse Practitioner Family
DX: D68.00 Von Willebrand disease, unspecified (principal); K64.9 Unspecified hemorrhoids; K62.5 Hemorrhage of anus and rectum; D12.6 Benign neoplasm of colon, unspecified
CPT/HCPCS: 99213

== ENCOUNTER → 2025-09-07 11:39 | Outpatient (BNVA) | payer MEDICARE, SELFPAY | PROVIDERS: PCP Internal Medicine; Visit Provider Nurse Practitioner Family | DX: K62.5 Hemorrhage of anus and rectum (principal); K64.9 Unspecified hemorrhoids; D68.00 Von Willebrand disease, unspecified; D12.6 Benign neoplasm of colon, unspecified | CPT/HCPCS: 99212 ==

== ENCOUNTER 2025-09-09 10:07 | Outpatient (REF) | payer MEDICARE, SELFPAY ==
--- OUTSIDE RECORDS SUMMARY | 2025-04-26 06:25 | XMS_ITS | Continuity of Care Document ---
Author Organization [facility] Address [address] [place] [address] Phone Care Team Providers Care Swimming Pool Serviceperson Name Role Phone Ivon Kimball PA-C Unavailable Unavailable Allergies, Adverse Reactions, Alerts Substance Reaction Status Criticality morphine Active No Information METOCLOPRAMIDE HCL Active No Inform ation Cryfaoy-ZFR-CiO Reductase Inhibitors Acti ve No Information latex [...] Date Provider Encounter Disposition OFFICE/OUTPA TIENT VISIT, [facility], [address] [place] [address], [id number], tel:[phone] [facility] RT Ankle Pain (chief complaint) Pain Ankle/Foot RTNondisplace d fracture of cuboid bone of right foot, initial encounter for closed fracture 5 Rehana Del Valle. [address] [place], [place], [id number] , [place]. tel: [phone] Family History Family Member Type Diagnosis Age [...]
--- NOTE | ~2025-09-09 | XR_ITS ---
EXAMINATION: XR SHOULDER 2 OR MORE VIEWS LEFT HISTORY: M25.512 - Pain in left shoulder COMPARISON: There are no prior studies available for comparison. FINDINGS: Three views of the left shoulder are submitted. Osseous mineralization is normal. There is no fracture or dislocation. The glenohumeral and acromioclavicular joint spaces are preserved. The soft tissues are unremarkable. XR/XR shoulder LT min 2V IMPRESSION: Unremarkable examination of the left shoulder. Electronically signed by: Jerome Haile MD 09/09/2025 12:33 PM EDT RP
== END 2025-09-09 10:08 | disposition home or self-care (01) ==
LOC: HO.HMGCX 10:07
PROVIDERS: PCP Internal Medicine; Visit Provider Physician Assistant Medical
DX: M25.512 Pain in left shoulder (principal)
CPT/HCPCS: 73030; 99212

== ENCOUNTER 2025-09-09 10:07 | Outpatient (AMB) | payer MEDICARE, SELFPAY ==
[2025-09-09 11:10] VITALS: BP 130/68; PULSE 64; O2SAT 100; BMI 25.1
--- NOTE | 2025-09-09 11:10 | AM.OFFWIN_ITS ---
Intake Vital Signs 09/09/25 11:10 Height 5 ft 4 in Weight 146 lb 6 oz BMI 25.1 BP 130/68 Blood Pressure Location Rt brachial Position Sitting Pulse 64 Pulse Source Pulse Oximeter Pulse Oximetry (%) 100 Oxygen Delivery Method Room Air Intake Visit Reasons: EP-neck & lt shoulder pain Intake Note: Patient presents with c/o left shoulder & neck pain x2 months but worsened in the last 2 weeks. Patient Tobacco Use Status: Never used Tobacco Allergies latex Allergy (Severe, Verified 09/09/25 11:14) Rash - latex gloves metoclopramide (From Reglan) Allergy (Severe, Verified 09/09/25 11:14) Anxiety morphine Allergy (Severe, Verified 09/09/25 11:14) Nausea and Vomiting niacin (Niaspan Extended-Release) Allergy (Severe, Verified 09/09/25 11:14) Swelling Wmqjsib-TMI-XnI Reductase Inhibitor (Okskusg-Jey-Dqk Reductase Inhibitor) Allergy (Severe, Verified 09/09/25 11:14) Muscle cramps Do you need a note to return to daycare/school/sports/work: No HPI HPI Comments History of Present Illness Details History of Present Illness - The patient is a 70-year-old female pr esenting with left shoulder pain. - The shoulder pain began in early t after lifting an object, initially mild without a painful sensation. - The pain was not bothersome initially but started to aggravate at night when lying down. - Recent activities such as yard work an d working above the head have exacerbated the pain. - The patient reports no numbness or tin gling in the arm or hand, and no pain in the arm itself. - The pain is localized to the left uppe r posterior shoulder and slightly down the back, with tenderness around the scapula. - Interventions tried include Tylenol, h eat, and infrared light therapy, none of which have provided relief. - She has pain with lifting movements an d physical movements such as cutting wood. - She denies numbness, tingling, neck pa in, back pain, chest pain, SOB, arm pain, wrist pain, or hand pain. Physical Exam General: Cooperative, healthy appearing, comfortable, no acute distress and well developed Orientation: Patient oriented x3 Limitations: Limited motion to turn to the left Respiratory: Normal respiratory effort and able to speak in complete sentences. Clear to auscultation bilaterally Cardiovascular: Regular rate and rhythm. Normal S1 and S2 Skin: No rashes or lesions noted Neuro: Sensation intact. Extremities: FROM of the left shoulder. No click noted. No TTP of the left clavicle, AC joint, bicipital groove, bicep. TTP of the rhomboid on the left and trapezius. No TTP of the scapula and no winging noted. Apprehension test is negative. Lift off is negative. Can test is negative. Supination and pronation is intact. Strength is 5/5 on the UE. Hand balloon dipper is intact. Patient was informed and verbally consented to the use of an ambient scribe for clinic note documentation during this visit [facility] Medical History (Updated 09/07/25 @ 12:21 by Scarlett Quarles [facility]) Tubular adenoma of colon Vertigo Osteopenia Vitamin B 12 deficiency Tubular adenoma Von Willebrand disease Post-operative nausea and vomiting Family history of breast cancer Hyperlipidemia Afib Anxiety and depression Lyme disease, unspecified HTN (hypertension) Surgical History History of esophagogastroduodenoscopy (EGD) H/O cardiac radiofrequency ablation Hx of tonsillectomy Hx of colonoscopy Family History Father HTN (hypertension) Hx of CABG Diabetes mellitus Mother Colon cancer Myocardial infarction Maternal Aunt Breast cancer Sister Colon polyp Social History Housing: House Alcohol intake: current Alcohol intake frequency: does not drink Patient Tobacco Use Status: Never used Tobacco e-Cigarette/Vaping Use: Never Used service: No Current occupational status: retired Current occupational exposures/hazards: No Cognitive needs: No Hearing needs: No Vision needs: Yes Review of Systems Const All systems reviewed & are unremarkable except as noted in HPI and below Physical Exam Vital Signs: Last Vital Signs Pulse 64 09/09/25 11:10 BP 130/68 09/09/25 11:10 Pulse Ox 100 09/09/25 11:10 Oxygen Delivery Method Room Air 09/09/25 11:10 BMI result Body Mass Index 25.1 Results Reviewed Results Reviewed: will review the xray in the office Assessment & Plan Assessment & Plan (1) Shoulder pain, left: Code(s): M25.512 - Pain in left shoulder Qualifiers: Chronicity: acute Qualified Code(s): M25.512 - Pain in left shoulder Plan Most likely a muscle strain vs arthritis vs AC separation plan - rest, ice, and elevation - activities as tolerated - Initiate shoulder X-ray to assess bone structure and rule out fractures. - Referral to physical therapy for targeted exercises to improve shoulder function and alleviate pain. - Consider further imaging such as MRI if symptoms persist despite initial interventions. Orders: Orders XR shoulder LT min 2V Today M25.512 - Pain in left shoulder PT Evaluation and Treatment Today M25.512 - Pain in left shoulder Coding Level of Care Code Est Pt Level 4 (90082) Diagnoses Acute pain of left shoulder M25.512 Chronicity: acute
--- OUTSIDE RECORDS SUMMARY | 2025-09-09 12:12 | XMS_ITS | Clinical Summary ---
Author Organization [facility] Address [address] [address] Phone Care Team Providers Care Bi Analyst Name Role Phone Brittany Dutton MD Primary Care Provider [phone] Allergies Active Allergy Reactions Criticality Noted Date [...] hr tablet METOPROLOL SUCCINATE ER 50 MG [id number] 6 Active lisinopril (PRINIVIL,ZESTR IL) 2.5 MG [...] Description 09/03/2025 11:10 AM EDT Office Visit [facility] at [address] [address] Shalini Hardy CNP Tendonitis (Primary Dx) 08/16/2025 3:50 PM EDT Office Visit [facility] at [address] [address] Abby Macario, NUTRITION INTERN Local reaction to bee sting, accidental or [...] EST) GLUCOSE 115(A) 70 - 100 mg/dL [facility] UREA N 11 6 - 23 mg/dL [facility] CREATININE 0.68 0.50 - 1.20 mg/dL [facility] eGFR >=60 [facility] Comment: (Abnormal if <60 mL/min/1.73m2 If patient is black, multiply by 1.21) SODIUM 137 136 - 145 mmol/L [facility] POTASSIUM 4.6 3.4 - 5.0 mmol/L [facility] CHLORIDE 105 98 - 107 mmol/L [facility] TOTAL CO2 27 22 - 31 mmol/L [facility] CALCIUM 8.3(A) 8.8 - 10.4 mg/dL [facility] ANION GAP 5 5 - 17 mmol/L [facility] 01/10/2010 6:45 AM EST Comment:BLOOD us Damari STEPHEN LAB BLOOD ORDERABLES Final Result [address] [address] from Last 3 Months or Most Recently Relevant to Health Maintenance Insurance [place] BLUE REPLACEMENT [facility] MEDICARE PPO BLUE REPLACEMENT [id number] [place] [address] MEDICARE PPO BLUE REPLACEMENT [facility] MEDICARE PPO BLUE REPLACEMENT [facility] MEDICARE PPO BLUE REPLACEMENT [id number] [place] [address] MEDICARE PPO BLUE REPLACEMENT Care Teams Bi Analyst Relationship Specialty Start Date End Date Brittany Dutton MD [address] [place], [place] [phone] PCP - General Internal Medicine 08/16/25 Additional Source Comments The information contained in this document represents components of the legal health record. It is not the complete legal health record.[facility]
--- OUTSIDE RECORDS SUMMARY | 2025-09-09 12:12 | XMS_ITS | Data Portability ---
Author Organization [place] [facility] [place] Address [address] [place] [address] Care Team Providers Care Call Manager Name Role Phone RADHA KAUR Primary Care [...] will follow-up as previously scheduled in our [place] office, sooner for any complications. 08/12/2023 68-year-old female with left knee pain. History examination and x-rays are suggestive of contusion with likely hemarthrosis in light of her von Willebrand's. The persistence of her pain and positive Vincent testing are suggestive of possible internal derangement. Recommendations are for MRI of left knee to evaluate for occult fracture versus internal derangement. [email or web address] Not available 08/30/2023 16:26:09 09/09/2023 09/09/2023 68-year-old [...] knee, 4 or more view 2022 023 [place] [facility], [address], [place], [address], 10:33:20 MRI, knee, w/o contrast - MRI: L knee without contrast. Diagnosis: Joint pain refractory to conservativ e treatment. Worsening pain and disability. Evaluate for internal derangement , AVN, or occult fracture and characteriz e degree of degenerativ e changes. 2022 023 arron n28 [facility], [address] [facility], [place], [address], 12:24:54 Medication Orders None recorded. Patient TargetsNo targets recorded. Patient Instructions Encounter Date Encounter Id Patient Instructions Last Modified By Organization Details Last Modified Time 08/12/2023 [id number] Outside x-rays obtained during her ER visit are reviewed to show no evidence for fracture or dislocation. Not available 08/12/2023 09:30:43 Reason for Referral None Reported. Results Created Date Observation Date Name Description Value Unit Range Abnormal Flag Note LastModifiedBy Organization Detail LastModifiedTime 08/13/20 23 08/13/2023 MRI, knee, w/o contr ast No observ ation record ed. [facility] [address], [place], [address], 08/15/2023 12:03:23 08/20/20 XR, knee, 4 or more view No observ ation record ed. [email or web address] [facility] [address], [place], [address], 08/20/2023 10:33:20 Result Notes None recorded. Problems Name Problem SNOMED Code Status Onset Date Resolution Date Notes Provider Name and Address Organization Details Recorded Time Closed fracture of left tibial plateau 695774679369893 07 Active 2022 RHONDA MAHER PA-C [address], [place], [address], [place] [facility], P 3 16:35:16 Fracture of condyle of tibia 523323473 Active 2022 RHONDA MAHER PA-C [address], [place], [address], [place] [facility], P 3 16:37:12 Fracture of condyle of tibia 257465615 Active 2022 RHONDA MAHER PA-C [address], [place], [address], [place] [facility], P 3 16:37:19 Problem Notes None recorded. Procedures Surgical History Date Name Laterality Status Provider Name and Address Organization Details Recorded Time fluoroscopy guided cardiac ablation with contrast completed Krishan Smith [facility] 08/12/2023 09:11:32 ligation of fallopian tube completed Krishan [address] [facility] 08/12/2023 09:11:52 tonsillectomy completed Krishanclaudia [address] [facility] 08/12/2023 09:11:59 Imaging Results None recorded. Procedure Notes None recorded. Medical Equipment None Reported. Allergies Allergen ID Allergen Name Allergen Category Reaction Reaction Severity Criticality Documentation Date Start Date Code Code System Note Provider Name and Address Organization Details Recorded Time 8588 latex environme nt,medica tion Not available Not available Not available 08/12/2023 75367 91 RxNorm Krishan ngo, [facility], P 3 09:08:53 8589 morphine medicatio n Not available Not available Not available 08/12/2023 7052 RxNorm Krishan ngo, [facility], P 3 09:09:00 8590 Product containin g 3-hydroxy -3-methyl glutaryl- coenzyme A reductase inhibitor (product) medicatio n Not available Not available Not available 08/12/2023 73262 009 SNOMED Krishan Smith [facility], [facility], P 3 09:09:18 8591 Niaspan medicatio n Not available Not available Not available 08/12/2023 47358 6 RxNorm Krishan Smith [facility], [facility], P 3 09:09:27 8592 Reglan medicatio n Not available Not available Not available 08/12/2023 9230 RxNorm Krishan ngo, [facility], P 3 09:09:33 Medications Name Sig [...] Updated DateTime 08/12/2023 162.56 cm 27.8 kg/m2 01330.96 josé miguel Smith [facility], P 08/12/2023 09:09:57 Date Recorded Body height Body mass index (BMI) Body weight Provider Name and Address Organization Details Last Updated DateTime 08/19/2023 162.56 cm 27.1 kg/m2 51852.59 josé miguel Adria Meng [place] [facility] [place] 08/19/2023 11:29:06 Social History None recorded. Functional Status Question Answer Note LastModified by Organizat ion Details LastModified Time How many times per week do you consume alcohol? 1-2 times per week [email or web address] Information not available 08/12/2023 Do you use any illicit or recreational drugs? No [email or web address] Information not available 08/12/2023 Do you or have you ever used any other forms of tobacco or nicotine? No [email or web address] Information not available 08/12/2023 What is your level of alcohol consumption? Occasional [email or web address] Information not available 08/12/2023 Mental Status None recorded. Family History Relationship Description Onset Age of this Age Resolved Age Notes LastModified by Organization Details LastModified Time Mother Arthritis [email or web address] Not avai cliff 08/12/2023 09:12:09 Mother Family history of malignant neoplasm [email or web address] Not available 12/2022 09:12:21 Mother Heart disease [email or web address] Not available 12/2022 09:12:30 Sister Family history of malignant neoplasm [email or web address] Not available 12/2022 09:12:21 Father Heart disease [email or web address] Not available 12/2022 09:12:39 Father Diabetes mellitus [email or web address] Not available 12/2022 09:12:50 Father Hyperlipidem ia [email or web address] Not available 12/2022 09:12:57 Father Hypertensive disorder [email or web address] Not available 12/2022 09:13:06 Medical History Condition Response Hypertension Y Gynecological HistoryNo gynecological history recorded. Obstetrics History GPAL:G 0 P 0 0 0 0 Past Encounters Encounter ID Performer Location Encounter Start Date Encounter Closed Date Diagnosis/Indication Diagnosis SNOMED-CT Code Diagnosis ICD10 Code Diagnosis IMO Codes Diagnosis Note [id number] [facility] [address] [facility] [address] [place] [place] [place] [address] 08/12/2023 08:55:26 08/12/2023 09:43:37 Pain of left knee joint 1116963193 63899 M25.562 [id number] PASHA ADAMS [facility] [address] [place] [address] 08/19/2023 10:59:45 08/19/2023 12:09:16 Pain of left knee joint 9423227429 14024 M25.562 Fracture o f condyle of tibia 548164394 S82.115D Nondisplac ed subchondra l fracture lateral [id number] PASHA LEZAMA [facility] [address] [facility] [address] [place] [address] 09/09/2023 10:34:15 09/09/2023 10:53:43 Fracture of condyle of tibia 202132938 S82.115D Health Concerns Section Related Observation LastModified by Organization Detai ls LastModified Time None Recorded Concern Status LastModified by Organization Details LastModified Time None Recorded Advance Directives Directive None Recorded Payers Insurance Date Sequence Insurance Name Policy Number Policy Corbin Covered Member ID Corbin Member ID Guarantor Name 09/09/2023 1 [employer] (MEDICARE REPLACEMENT/ ADVANTAGE - PPO) [id number] Rosina Servin [id number] Rosina Servin Notes Date Note Type Note Provider Name and Address Organization Details Recorded Time 08/12/2023 text/html 68-year-old female presents with left knee pain. She [...] fracture or dislocation. MISSAEL REED PA-C [address] [facility] [address], [place], [address], [place] [facility] 08/12/2023 09:33:15 08/19/2023 text/html Patient is [...] cartilage. She has follow-up scheduled in our [place] office. Unfortunately, she fell again on 08/15/2023 [...] RHONDA MAHER PA-C [address], [place], [address], [place] [facility] 08/30/2023 16:27:11 09/09/2023 text/html 68-year-old female is 2 months status post nondisplaced fracture [...] onto the knee. MISSAEL REED PA-C [address] [facility] [place] [address], [place], [address], [place] [facility] 09/09/2023 11:01:12 OBGyn Episode No OBEpisode recorded.
--- OUTSIDE RECORDS SUMMARY | 2025-09-09 12:12 | XMS_ITS | Clinical Summary ---
Author Organization [facility] Address [address] [address] Care Team Providers Care Fuel Truck Driver Name Role Phone Brittany Dutton MD Primary Care Provider [phone] Social History Tobacco Use Types Packs/Day Years [...] age to complete this topic Care Teams Fuel Truck Driver Relationship Specialty Start Date End Date Brittany Dutton MD [address] [place] [address] PCP - General Internal Medicine 12/25/21
== END 2025-09-09 11:41 | disposition home or self-care (01) ==
PROVIDERS: PCP Internal Medicine; Visit Provider Physician Assistant Medical
DX: M25.512 Pain in left shoulder (principal)

== ENCOUNTER → 2025-09-09 12:08 | Outpatient (BNV) | payer MEDICARE, SELFPAY | PROVIDERS: PCP Internal Medicine; Visit Provider Radiology Diagnostic Radiology | DX: M25.512 Pain in left shoulder (principal) | CPT/HCPCS: 73030 ==